=== PATIENT | female | born 1980 | race Caucasian/White ===

== ENCOUNTER 2017-02-05 08:01 | Emergency (ER) | payer SELFPAY ==
[2017-02-05 08:15] VITALS: BP 142/78
[2017-02-05] MEDS ORDERED: ASPIRIN 81 MG TABLET, CHEWABLE PO ONE (09:02)
--- NOTE | 2017-02-05 09:04 | ER Document Report ---
ED Cardiac - General Chief Complaint: Chest Pain Stated Complaint: CHEST PAIN Mode of Arrival: Ambulatory Information source: Patient Notes: Patient presents complaining of right-sided chest pain that started at 7:30 this morning and radiate to right shoulder into her right hand. Patient denies any upper arm or forearm pain. Patient does report some nausea initially but states it is now resolved. Patient denies any cough, vomiting, or diarrhea. Patient states that initially pain was a pressure and she felt short of breath. Patient states that pain is almost completely resolved at this time. Patient denies any recent bedrest, travel or immobilization. Patient denies any previous history of DVT or PE. TRAVEL OUTSIDE OF THE [place] IN LAST 30 DAYS: No - HPI Patient complains to provider of: Chest pain, Shortness of breath Quality of pain: Pressure Pain level currently: 1 Chest pain precipitating factors: At Rest Cardiac risk factors: denies: Smoker Positive cardiac history: No Associated symptoms: Anxiety, Nausea/vomiting, Shortness of breath Exacerbated by: Denies Relieved by: Nothing Similar symptoms previously: Yes - with anxiety Recently seen / treated by doctor: No - Related Data Allergies/Adverse Reactions: erythromycin ethylsuccinate [From Pediazole] Allergy (Unknown, Verified 08:15) sulfisoxazole acetyl [From Pediazole] Allergy (Unknown, Verified 02/05/17 08:15) bee pollen [Bee Pollen] Allergy (Verified 02/05/17 08:15) ceftriaxone sodium [From Rocephin] Allergy (Verified 02/05/17 08:15) THROAT SWELLING doxycycline [Doxycycline] Allergy (Verified 02/05/17 08:15) Hives, thoat closes codeine [Codeine] Adverse Reaction (Verified 02/05/17 08:15) HYPERACTIVE metoclopramide HCl [From Reglan] Adverse Reaction (Verified 02/05/17 08:15) "MAKES ME FEEL CRAZY" prochlorperazine maleate [From Compazine] Adverse Reaction (Verified 02/05/17 08 :15) "MAKES ME CRAZY" promethazine HCl [From Phenergan] Adverse Reaction (Verified 02/05/17 08:15) Nausea Past Medical History - General Information source: Patient - Social History Smoking Status: Never Smoker Chew tobacco use (# tins/day): No Frequency of alcohol use: None Drug Abuse: None Occupation: none Lives with: Family Family History: Reviewed & Not Pertinent - Past Medical History Cardiac Medical History: Reports: Hx Hypercholesterolemia - NO MEDS, TRYING TO CONTROL WITH DIET Denies: Hx Coronary Artery Disease, Hx Heart Attack Pulmonary Medical History: Reports: Hx Asthma, Hx Pneumonia - 2011 "walking" Denies: Hx Bronchitis, Hx COPD Neurological Medical History: Reports: Hx Migraine. Denies: Hx Cerebrovascular Accident, Hx Seizures Endocrine Medical History: Reports: Hx Diabetes Mellitus Type 2 - BORDERLINE-NO MEDS, Hx Hypothyroidism Renal/ Medical History: Reports: Hx Kidney Stones, Hx Ovarian Cysts. Denies: Hx Peritoneal Dialysis GI Medical History: Reports: Hx Gastroesophageal Reflux Disease, Hx Irritable Bowel Musculoskeltal Medical History: Reports Hx Arthritis - Shailesh Carpal Tunnel Syndrome, Reports Hx Musculoskeletal Trauma Skin Medical History: Reports Hx MRSA - rt big toe arm left Psychiatric Medical History: Reports: Hx Anxiety, Hx Bipolar Disorder, Hx Depression - anxiety Traumatic Medical History: Reports: Hx Fractures - left arm fingers and toes Infectious Medical History: Reports: Hx MRSA Past Surgical History: Reports: Hx Abdominal Surgery - ovarian cyst, Hx Appendectomy, Hx Thyroid Surgery, Hx Tubal Ligation - Immunizations Immunizations up to date: Yes Hx Diphtheria, Pertussis, Tetanus Vaccination: Yes - 2012 Review of Systems - Review of Systems Constitutional: No symptoms reported. denies: Fever, Recent illness EENT: No symptoms reported Cardiovascular: Chest pain. denies: Dizziness Respiratory: Short of breath. denies: Cough Gastrointestinal: Nausea. denies: Abdominal pain, Diarrhea, Vomiting Female Genitourinary: No symptoms reported Musculoskeletal: No symptoms reported. denies: Back pain Skin: No symptoms reported Hematologic/Lymphatic: No symptoms reported Neurological/Psychological: No symptoms reported Physical Exam - Vital signs Vitals: Temp Pulse Resp BP Pulse Ox 98.3 F 63 16 142/78 H 98 02/05/17 08:12 02/05/17 08:12 02/05/17 08:12 02/05/17 08:12 02/05/17 08:12 - General General appearance: Appears well, Alert, Anxious In distress: None - HEENT Head: Normocephalic, Atraumatic Eyes: Normal Conjunctiva: Normal Nasal: Normal Mouth/Lips: Normal Mucous membranes: Normal Neck: Normal, Supple. No: Lymphadenopathy - Respiratory Respiratory status: No respiratory distress Chest status: Nontender Breath sounds: Normal. No: Rales, Rhonchi, Stridor, Wheezing Chest palpation: Normal - Cardiovascular Rhythm: Regular Heart sounds: S1 appreciated, S2 appreciated Murmur: No - Abdominal Inspection: Morbidly Obese Distension: No distension Bowel sounds: Normal Tenderness: Nontender Organomegaly: No organomegaly - Back Back: Normal, Nontender. No: CVA tenderness - Extremities General upper extremity: Normal inspection, Normal ROM General lower extremity: Normal inspection, Normal ROM - Neurological Neuro grossly intact: Yes Cognition: Normal [place] Coma Scale Eye Opening: Spontaneous [place] Coma Scale Verbal: Oriented [place] Coma Scale Motor: Obeys Commands [place] Coma Scale Total: 15 - Psychological Associated symptoms: Anxious, Tearful - Skin Skin Temperature: Warm Skin Moisture: Dry Skin Color: Normal Course - Re-evaluation Re-evalutation: 02/05/17 09:38 Patient states that she needs to leave to get to her daughter's competition. Patient states she's feeling better and thinks that her symptoms were due to an anxiety attack. Patient is wanting to leave [place]. The patient has decided not to proceed with further recommended testing or treatment to determine the cause of her symptoms. The risk and alternatives to the recommendation were discussed the patient voiced understanding. The patient appears clinically to have the capacity to make this decision. The patient was instructed that they could return to the ER at any time to complete the testing or treatment. - Vital Signs Vital signs: Temp Pulse Resp BP Pulse Ox 98.3 F 63 16 142/78 H 98 02/05/17 08:12 02/05/17 08:12 02/05/17 08:12 02/05/17 08:12 02/05/17 08:12 - Laboratory Result Diagrams: 02/05/17 08:38 02/05/17 08:38 Laboratory results interpreted by me: 02/05/17 02/05/17 08:38 08:38 Glucose 131 H TSH 5.58 H Discharge - Discharge Clinical Impression: History of anxiety Chest pain Qualifiers: Chest pain type: unspecified Qualified Code(s): R07.9 - Chest pain, unspecified Disposition: AGAINST MEDICAL ADVICE
[2017-02-05 09:14] LABS: ABSOLUTE EOSINOPHILS # (AUTO) 0.3 10^3/uL (0.0-0.6); ABSOLUTE LYMPHOCYTES (AUTO) 1.9 10^3/uL (0.5-4.7); ABSOLUTE MONOCYTES (AUTO) 0.5 10^3/uL (0.1-1.4); ABSOLUTE NEUT (AUTO) 4.1 10^3/uL (1.7-8.2); BASOPHILS % (AUTO) 0.7 % (0-2); EOSINOPHILS % (AUTO) 4.3 % (0-6); HEMATOCRIT 41.4 % (36.0-47.0); HEMOGLOBIN 14.4 g/dL (12.0-15.5); HGB HCT DIFFERENCE 1.8; LYMPHOCYTES % (AUTO) 27.1 % (13-45); MEAN CORPUSCULAR HEMOGLOBIN 29.5 pg (27.0-33.4); MEAN CORPUSCULAR HGB CONC 34.8 g/dL (32.0-36.0); MEAN CORPUSCULAR VOLUME 85 fl (80-97); MONOCYTES % (AUTO) 7.5 % (3-13); RED BLOOD COUNT 4.89 10^6/uL (3.72-5.28); RED CELL DISTRIBUTION WIDTH 12.2 % (11.5-14.0); SEGMENTED NEUTROPHILS % (AUTO) 60.4 % (42-78); WHITE BLOOD COUNT 6.8 10^3/uL (4.0-10.5)
[2017-02-05 09:24] LABS: ALANINE AMINOTRANSFERASE 30 U/L (9-52); ALBUMIN 4.1 g/dL (3.5-5.0); ALKALINE PHOSPHATASE 56 U/L (38-126); ANION GAP 13 (5-19); ASPARTATE AMINO TRANSFERASE 19 U/L (14-36); BILIRUBIN,DIRECT 0.1 mg/dL (0.0-0.4); BILIRUBIN,TOTAL 0.5 mg/dL (0.2-1.3); BLOOD UREA NITROGEN 14 mg/dL (7-20); CARBON DIOXIDE 25 mmol/L (22-30); CHLORIDE 105 mmol/L (98-107); CREATINE KINASE 94 U/L (30-135); CREATININE RESULT 0.64 mg/dL (0.52-1.25); GLUCOSE 131 mg/dL (75-110); POTASSIUM 4.1 mmol/L (3.6-5.0); SODIUM 143.1 mmol/L (137-145); TOTAL PROTEIN 6.9 g/dL (6.3-8.2)
[2017-02-05 09:42] LABS: CREATINE KINASE MB 0.51 ng/mL (<4.55)
[2017-02-05 09:43] LABS: APPEARANCE,URINE SLIGHTLY-CLOUDY; BILIRUBIN,URINE NEGATIVE (NEGATIVE); GLUCOSE, URINE NEGATIVE (NEGATIVE); KETONES,URINE NEGATIVE (NEGATIVE); LEUKOCYTE ESTERASE,URINE NEGATIVE (NEGATIVE); NITRITE,URINE NEGATIVE (NEGATIVE); PROTEIN,URINE NEGATIVE (NEGATIVE); URINE SPECIFIC GRAVITY 1.016; UROBILINOGEN,URINE NEGATIVE mg/dL (<2.0)
[2017-02-05 09:43] LABS: TROPONIN I < 0.012 ng/mL
[2017-02-05 09:59] LABS: URINE BARBITURATES SCREEN NEGATIVE; URINE METHADONE SCREEN NEGATIVE; URINE OPIATES LOW NEGATIVE; URINE PHENCYCLIDINE SCREEN NEGATIVE
--- NOTE | 2017-02-05 10:20 | EKG REPORT ---
SEVERITY:- NORMAL ECG - SINUS RHYTHM : Confirmed by: Terrell Aguiar MD 05-Feb-2017 10:19:34
== END 2017-02-05 09:34 | disposition left against medical advice (07) ==
LOC: ER 08:01
DX: R07.9 Chest pain, unspecified (principal); R06.02 Shortness of breath; R11.0 Nausea; E66.01 Morbid (severe) obesity due to excess calories; R73.03 Prediabetes; E78.00 Pure hypercholesterolemia, unspecified; Z88.3 Allergy status to other anti-infective agents; Z88.6 Allergy status to analgesic agent; Z87.442 Personal history of urinary calculi; Z86.14 Personal history of Methicillin resistant Staphylococcus aureus infection; Z98.51 Tubal ligation status
CPT/HCPCS: 36415; 71020; 80053; 80307; 81001; 82550; 82553; 84443; 84484; 84703; 85025; 93005; 93010; 99285

== ENCOUNTER 2017-03-08 10:25 | Emergency (ER) | payer SELFPAY ==
[2017-03-08] MEDS ORDERED: LORAZEPAM 1 MG TABLET PO ONE (10:53)
--- NOTE | 2017-03-08 10:55 | ER Document Report ---
ED General - General Chief Complaint: Chest Pressure Stated Complaint: DIFFICULTY BREATHING/CHEST TIGHTNESS Mode of Arrival: Ambulatory Information source: Patient Notes: 37-year-old female history of anxiety panic attacks who has been off her Ativan and Zoloft for the past 6 months presents with a panic attack. Patient notes that she feels her throat was closing has pain in her hands elbows, patient notes tingling sensation, admits to right-sided chest pain radiating to her neck Patient notes this is similar to previous panic attacks TRAVEL OUTSIDE OF THE [place] IN LAST 30 DAYS: No - HPI Onset: Just prior to arrival Onset/Duration: Sudden Quality of pain: Sharp Severity: Mild Pain Level: 1 Associated symptoms: Chest pain, Other Exacerbated by: Denies Relieved by: Denies Similar symptoms previously: Yes Recently seen / treated by doctor: Yes - Related Data Allergies/Adverse Reactions: erythromycin ethylsuccinate [From Pediazole] Allergy (Unknown, Verified 10:27) sulfisoxazole acetyl [From Pediazole] Allergy (Unknown, Verified 03/08/17 10:27) bee pollen [Bee Pollen] Allergy (Verified 03/08/17 10:27) ceftriaxone sodium [From Rocephin] Allergy (Verified 03/08/17 10:27) THROAT SWELLING doxycycline [Doxycycline] Allergy (Verified 03/08/17 10:27) Hives, thoat closes codeine [Codeine] Adverse Reaction (Verified 03/08/17 10:27) HYPERACTIVE metoclopramide HCl [From Reglan] Adverse Reaction (Verified 03/08/17 10:27) "MAKES ME FEEL CRAZY" prochlorperazine maleate [From Compazine] Adverse Reaction (Verified 03/08/17 10 :27) "MAKES ME CRAZY" promethazine HCl [From Phenergan] Adverse Reaction (Verified 03/08/17 10:27) Nausea Past Medical History - Social History Smoking Status: Never Smoker Cigarette use (# per day): No Chew tobacco use (# tins/day): No Smoking Education Provided: No Family History: Reviewed & Not Pertinent Patient has suicidal ideation: No Patient has homicidal ideation: No - Past Medical History Cardiac Medical History: Reports: Hx Hypercholesterolemia - NO MEDS, TRYING TO CONTROL WITH DIET, Hx Hypertension - No meds Denies: Hx Coronary Artery Disease, Hx Heart Attack Pulmonary Medical History: Reports: Hx Asthma, Hx Pneumonia - 2011 "walking" Denies: Hx Bronchitis, Hx COPD Neurological Medical History: Reports: Hx Migraine. Denies: Hx Cerebrovascular Accident, Hx Seizures Endocrine Medical History: Reports: Hx Diabetes Mellitus Type 2 - BORDERLINE-NO MEDS, Hx Hypothyroidism Renal/ Medical History: Reports: Hx Kidney Stones, Hx Ovarian Cysts. Denies: Hx Peritoneal Dialysis GI Medical History: Reports: Hx Gastroesophageal Reflux Disease, Hx Irritable Bowel Musculoskeltal Medical History: Reports Hx Arthritis - Shailesh Carpal Tunnel Syndrome, Reports Hx Musculoskeletal Trauma Skin Medical History: Reports Hx MRSA - rt big toe arm left Psychiatric Medical History: Reports: Hx Anxiety, Hx Bipolar Disorder, Hx Depression - anxiety Traumatic Medical History: Reports: Hx Fractures - left arm fingers and toes Infectious Medical History: Reports: Hx MRSA Past Surgical History: Reports: Hx Abdominal Surgery - ovarian cyst, Hx Appendectomy, Hx Thyroid Surgery, Hx Tubal Ligation - Immunizations Immunizations up to date: Yes Hx Diphtheria, Pertussis, Tetanus Vaccination: Yes - 2012 Review of Systems - Review of Systems Notes: REVIEW OF SYSTEMS: CONSTITUTIONAL : Denies fever, chills, or sweats. Denies recent illness. EENT: Admits to sensation of throat closing CARDIOVASCULAR: Admits chest pain admits to palpitations RESPIRATORY: Denies cough, cold, or chest congestion. Denies shortness of breath, difficulty breathing, or wheezing. GASTROINTESTINAL: Denies abdominal pain or distention. Denies nausea, vomiting , or diarrhea. Denies blood in vomitus, stools, or per rectum. Denies black, tarry stools. Denies constipation. GENITOURINARY: Denies difficulty urinating, painful urination, burning, frequency, blood in urine, or discharge. FEMALE GENITOURINARY: Denies vaginal bleeding, heavy or abnormal periods, irregular periods. Denies vaginal discharge or odor. MUSCULOSKELETAL: Denies back or neck pain or stiffness. Denies joint pain or swelling. SKIN: Denies rash, lesions or sores. HEMATOLOGIC : Denies easy bruising or bleeding. LYMPHATIC: Denies swollen, enlarged glands. NEUROLOGICAL: Denies confusion or altered mental status. Denies passing out or loss of consciousness. Denies dizziness or lightheadedness. Denies headache. Denies weakness or paralysis or loss of use of either side. Denies problems with gait or speech. Denies sensory loss, numbness, or tingling. Denies seizures. PSYCHIATRIC: Admits to anxiety ALL OTHER SYSTEMS REVIEWED AND NEGATIVE. Dictation was performed using [employer] voice recognition software PHYSICAL EXAMINATION: GENERAL: Well-appearing, well-nourished and in no acute distress. HEAD: Atraumatic, normocephalic. EYES: Pupils equal round and reactive to light, extraocular movements intact, conjunctiva are normal. ENT: Nares patent, oropharynx clear without exudates. Moist mucous membranes. NECK: Normal range of motion, supple without lymphadenopathy LUNGS: Breath sounds clear to auscultation bilaterally and equal. No wheezes rales or rhonchi. HEART: Regular rate and rhythm without murmurs ABDOMEN: Soft, nontender, nondistended abdomen. No guarding, no rebound. No masses appreciated. Female : deferred Musculoskeletal: Normal range of motion, no pitting or edema. No cyanosis. NEUROLOGICAL: Cranial nerves grossly intact. Normal speech, normal gait. Normal sensory, motor exams PSYCH: Appears anxious SKIN: Warm, Dry, normal turgor, no rashes or lesions noted. Physical Exam - Vital signs Vitals: Temp Pulse Resp BP Pulse Ox 98.0 F 79 20 148/91 H 99 03/08/17 10:29 03/08/17 10:29 03/08/17 10:29 03/08/17 10:29 03/08/17 10:29 Course - Re-evaluation Re-evalutation: 03/08/17 10:55 Patient is having a panic attack, EKG noted no acute abnormality, lab work is pending patient was given Ativan 03/08/17 11:41 Patient notes symptoms have resolved with Ativan 03/08/17 13:20 Lab work notes no significant abnormality a believe this is secondary to anxiety I will discharge the patient at this time to follow-up with primary care physician After performing a Medical Screening Examination, I estimate there is LOW risk for RUPTURED ESOPHAGUS, PNEUMOTHORAX, PULMONARY EMBOLISM, ACUTE CORONARY SYNDROME, OR THORACIC AORTIC DISSECTION, thus I consider the discharge disposition reasonable. I have reevaluated this patient multiple times and no significant life threatening changes are noted. The patient and I have discussed the diagnosis and risks, and we agree with discharging home with close follow-up. We also discussed returning to the Emergency Department immediately if new or worsening symptoms occur. We have discussed the symptoms which are most concerning (e.g., bloody sputum, worsening pain or shortness of breath) that necessitate immediate return. - Vital Signs Vital signs: Temp Pulse Resp BP Pulse Ox 98.0 F 79 20 148/91 H 99 03/08/17 10:29 03/08/17 10:29 03/08/17 10:29 03/08/17 10:29 03/08/17 10:29 - Laboratory Result Diagrams: 03/08/17 12:08 03/08/17 12:08 Laboratory results interpreted by me: 03/08/17 03/08/17 12:08 12:08 RBC 5.31 H Hgb 15.7 H Glucose 119 H Calcium 10.4 H - Diagnostic Test Radiology reviewed: Image reviewed, Reports reviewed - EKG Interpretation by Me EKG shows normal: Sinus rhythm, [place], Intervals, QRS Complexes Discharge - Discharge Clinical Impression: Anxiety Chest pain Qualifiers: Chest pain type: unspecified Qualified Code(s): R07.9 - Chest pain, unspecified Condition: Stable Disposition: HOME, SELF-CARE Instructions: Anxiety ([facility]) Additional Instructions: Follow up with your physician tomorrow for further care or return to the ED IMMEDIATELY if symptoms worsen or new concerns occur. If you cannot afford to follow up with your primary care physician a list of low cost clinics have been provided at the end of your discharge papers as well. Prescriptions: Lorazepam [Ativan 1 mg Tablet] 1 mg PO Q8 #14 tab Sertraline HCl [Zoloft 50 mg Tablet] 50 mg PO DAILY #30 tablet
--- NOTE | 2017-03-08 11:19 | EKG REPORT ---
SEVERITY:- NORMAL ECG - SINUS RHYTHM : Confirmed by: Risa Azevedo 08-Mar-2017 11:18:22
[2017-03-08 12:31] LABS: ABSOLUTE EOSINOPHILS # (AUTO) 0.2 10^3/uL (0.0-0.6); ABSOLUTE LYMPHOCYTES (AUTO) 1.7 10^3/uL (0.5-4.7); ABSOLUTE MONOCYTES (AUTO) 0.5 10^3/uL (0.1-1.4); BASOPHILS % (AUTO) 0.6 % (0-2); HEMOGLOBIN 15.7 g/dL (12.0-15.5); HGB HCT DIFFERENCE 2.1; LYMPHOCYTES % (AUTO) 23.2 % (13-45); MEAN CORPUSCULAR HEMOGLOBIN 29.6 pg (27.0-33.4); MEAN CORPUSCULAR HGB CONC 34.9 g/dL (32.0-36.0); MEAN CORPUSCULAR VOLUME 85 fl (80-97); MONOCYTES % (AUTO) 6.2 % (3-13); RED BLOOD COUNT 5.31 10^6/uL (3.72-5.28); RED CELL DISTRIBUTION WIDTH 12.5 % (11.5-14.0); WHITE BLOOD COUNT 7.5 10^3/uL (4.0-10.5)
[2017-03-08 12:48] LABS: ALANINE AMINOTRANSFERASE 36 U/L (9-52); ALBUMIN 4.6 g/dL (3.5-5.0); ALKALINE PHOSPHATASE 55 U/L (38-126); ANION GAP 14 (5-19); ASPARTATE AMINO TRANSFERASE 21 U/L (14-36); BILIRUBIN,DIRECT 0.1 mg/dL (0.0-0.4); BILIRUBIN,TOTAL 0.5 mg/dL (0.2-1.3); BLOOD UREA NITROGEN 11 mg/dL (7-20); CALCIUM 10.4 mg/dL (8.4-10.2); CARBON DIOXIDE 27 mmol/L (22-30); CHLORIDE 103 mmol/L (98-107); CREATINE KINASE 73 U/L (30-135); CREATININE RESULT 0.73 mg/dL (0.52-1.25); GLUCOSE 119 mg/dL (75-110); POTASSIUM 4.6 mmol/L (3.6-5.0); SODIUM 143.9 mmol/L (137-145); TOTAL PROTEIN 7.6 g/dL (6.3-8.2)
[2017-03-08 12:59] LABS: CREATINE KINASE MB 0.67 ng/mL (<4.55)
[2017-03-08 13:00] LABS: TROPONIN I < 0.012 ng/mL
[2017-03-08 13:39] VITALS: BP 130/79
== END 2017-03-08 13:25 | disposition home or self-care (01) ==
LOC: ER 10:25
DX: F41.9 Anxiety disorder, unspecified (principal); R07.89 Other chest pain; F41.0 Panic disorder [episodic paroxysmal anxiety]; R09.89 Other specified symptoms and signs involving the circulatory and respiratory systems; R00.2 Palpitations; R20.2 Paresthesia of skin; M79.643 Pain in unspecified hand; M25.529 Pain in unspecified elbow; I10 Essential (primary) hypertension; J45.909 Unspecified asthma, uncomplicated; Z88.1 Allergy status to other antibiotic agents; Z91.030 Bee allergy status; Z86.14 Personal history of Methicillin resistant Staphylococcus aureus infection
CPT/HCPCS: 36415; 80053; 82550; 82553; 84443; 84484; 85025; 93005; 93010; 99284

== ENCOUNTER 2017-04-22 07:53 | Emergency (ER) | payer MEDICAID ==
[2017-04-22] MEDS ORDERED: ASPIRIN 81 MG TABLET, CHEWABLE PO ONE (08:15)
[2017-04-22] MEDS ORDERED: NORMAL SALINE 1000 ML 1,000 ML IV ONE (08:29)
[2017-04-22 08:57] LABS: ABSOLUTE BASOPHILS # (AUTO) 0.1 10^3/uL (0.0-0.2); ABSOLUTE EOSINOPHILS # (AUTO) 0.4 10^3/uL (0.0-0.6); ABSOLUTE LYMPHOCYTES (AUTO) 1.9 10^3/uL (0.5-4.7); ABSOLUTE MONOCYTES (AUTO) 0.6 10^3/uL (0.1-1.4); ABSOLUTE NEUT (AUTO) 7.4 10^3/uL (1.7-8.2); BASOPHILS % (AUTO) 0.8 % (0-2); EOSINOPHILS % (AUTO) 3.6 % (0-6); HEMATOCRIT 43.4 % (36.0-47.0); HEMOGLOBIN 15.1 g/dL (12.0-15.5); HGB HCT DIFFERENCE 1.9; LYMPHOCYTES % (AUTO) 18.7 % (13-45); MEAN CORPUSCULAR HEMOGLOBIN 29.3 pg (27.0-33.4); MEAN CORPUSCULAR HGB CONC 34.8 g/dL (32.0-36.0); MEAN CORPUSCULAR VOLUME 84 fl (80-97); MONOCYTES % (AUTO) 5.4 % (3-13); RED BLOOD COUNT 5.15 10^6/uL (3.72-5.28); RED CELL DISTRIBUTION WIDTH 12.4 % (11.5-14.0); SEGMENTED NEUTROPHILS % (AUTO) 71.5 % (42-78); WHITE BLOOD COUNT 10.4 10^3/uL (4.0-10.5)
--- NOTE | 2017-04-22 08:59 | RADIOLOGY REPORT (SQ) ---
EXAM DESCRIPTION: CHEST SINGLE VIEW COMPLETED DATE/TIME: 04/22/2017 8:42 am REASON FOR STUDY: chest pain COMPARISON: 02/05/2017 EXAM PARAMETERS: NUMBER OF VIEWS: One view. TECHNIQUE: Single frontal radiographic view of the chest acquired. RADIATION DOSE: NA LIMITATIONS: None. FINDINGS: LUNGS AND PLEURA: No opacities, masses or pneumothorax. No pleural effusion. MEDIASTINUM AND HILAR STRUCTURES: No masses. Contour normal. HEART AND VASCULAR STRUCTURES: Heart normal in size. Normal vasculature. BONES: No acute findings. HARDWARE: None in the chest. OTHER: No other significant finding. IMPRESSION: NO ACUTE RADIOGRAPHIC FINDING IN THE CHEST. TECHNICAL DOCUMENTATION: JOB ID: [id number]
[2017-04-22 09:22] LABS: ALANINE AMINOTRANSFERASE 29 U/L (9-52); ALBUMIN 4.1 g/dL (3.5-5.0); ALKALINE PHOSPHATASE 55 U/L (38-126); ANION GAP 12 (5-19); ASPARTATE AMINO TRANSFERASE 19 U/L (14-36); BILIRUBIN,DIRECT 0.3 mg/dL (0.0-0.4); BILIRUBIN,TOTAL 0.5 mg/dL (0.2-1.3); BLOOD UREA NITROGEN 13 mg/dL (7-20); CALCIUM 9.9 mg/dL (8.4-10.2); CARBON DIOXIDE 22 mmol/L (22-30); CHLORIDE 106 mmol/L (98-107); CREATINE KINASE 62 U/L (30-135); CREATININE RESULT 0.64 mg/dL (0.52-1.25); GLUCOSE 158 mg/dL (75-110); LIPASE 95.8 U/L (23-300); POTASSIUM 3.7 mmol/L (3.6-5.0); SODIUM 139.9 mmol/L (137-145); TOTAL PROTEIN 7.5 g/dL (6.3-8.2)
[2017-04-22 09:25] LABS: APPEARANCE,URINE CLOUDY; BILIRUBIN,URINE NEGATIVE (NEGATIVE); GLUCOSE, URINE NEGATIVE (NEGATIVE); KETONES,URINE NEGATIVE (NEGATIVE); LEUKOCYTE ESTERASE,URINE NEGATIVE (NEGATIVE); NITRITE,URINE NEGATIVE (NEGATIVE); PROTEIN,URINE NEGATIVE (NEGATIVE); UROBILINOGEN,URINE NEGATIVE mg/dL (<2.0)
[2017-04-22 09:26] LABS: RBC,URINE NONE SEEN /HPF; URINE SPECIFIC GRAVITY 1.021; WBC,URINE NONE SEEN /HPF
[2017-04-22 09:36] LABS: CREATINE KINASE MB < 0.22 ng/mL (<4.55); TROPONIN I < 0.012 ng/mL
[2017-04-22 09:37] LABS: URINE BARBITURATES SCREEN NEGATIVE; URINE METHADONE SCREEN NEGATIVE; URINE OPIATES LOW NEGATIVE; URINE PHENCYCLIDINE SCREEN NEGATIVE
--- NOTE | 2017-04-22 11:02 | EKG REPORT ---
SEVERITY:- NORMAL ECG - SINUS RHYTHM : Confirmed by: Luzma Randall MD 22-Apr-2017 11:02:09
--- NOTE | 2017-04-22 11:20 | ER Document Report ---
ED General - General Chief Complaint: Dizziness Stated Complaint: CHEST DISCOMORT Time Seen by Provider: 04/22/17 08:28 TRAVEL OUTSIDE OF THE [place] IN LAST 30 DAYS: No - HPI Patient complains to provider of: Chest tightness bumps on the back of the head Notes: Patient coming in for epigastric chest tightness bumps by the prescription on the back of her head dizziness ongoing for the last 24 hours. Patient states recently she was or suturing states that she was laying back of her head and the water afterwards developed multiple bumps on the back of her head have progressed on the bottom of her hairline. Patient also states epigastric chest tightness. Patient also states feeling weak weak and dizzy with movement denies fevers chills nausea vomiting recent travel denies any trauma - Related Data Allergies/Adverse Reactions: erythromycin ethylsuccinate [From Pediazole] Allergy (Unknown, Verified 07:57) sulfisoxazole acetyl [From Pediazole] Allergy (Unknown, Verified 04/22/17 07:57) bee pollen [Bee Pollen] Allergy (Verified 04/22/17 07:57) ceftriaxone sodium [From Rocephin] Allergy (Verified 04/22/17 07:57) THROAT SWELLING doxycycline [Doxycycline] Allergy (Verified 04/22/17 07:57) Hives, lucerot closes codeine [Codeine] Adverse Reaction (Verified 04/22/17 07:57) HYPERACTIVE metoclopramide HCl [From Reglan] Adverse Reaction (Verified 04/22/17 07:57) "MAKES ME FEEL CRAZY" prochlorperazine maleate [From Compazine] Adverse Reaction (Verified 04/22/17 07 :57) "MAKES ME CRAZY" promethazine HCl [From Phenergan] Adverse Reaction (Verified 04/22/17 07:57) Nausea Home Medications: Current Home Medications No Home Medications 04/22/17 [History] Past Medical History - Social History Smoking Status: Current Some Day Smoker Frequency of alcohol use: Rare Drug Abuse: None Family History: Reviewed & Not Pertinent Patient has suicidal ideation: No Patient has homicidal ideation: No - Past Medical History Cardiac Medical History: Reports: Hx Hypercholesterolemia - NO MEDS, TRYING TO CONTROL WITH DIET, Hx Hypertension - No meds Denies: Hx Coronary Artery Disease, Hx Heart Attack Pulmonary Medical History: Reports: Hx Asthma, Hx Pneumonia - 2011 "walking" Denies: Hx Bronchitis, Hx COPD Neurological Medical History: Reports: Hx Migraine. Denies: Hx Cerebrovascular Accident, Hx Seizures Endocrine Medical History: Reports: Hx Diabetes Mellitus Type 2 - BORDERLINE-NO MEDS, Hx Hypothyroidism Renal/ Medical History: Reports: Hx Kidney Stones, Hx Ovarian Cysts. Denies: Hx Peritoneal Dialysis GI Medical History: Reports: Hx Gastroesophageal Reflux Disease, Hx Irritable Bowel Musculoskeltal Medical History: Reports Hx Arthritis - Shailesh Carpal Tunnel Syndrome, Reports Hx Musculoskeletal Trauma Skin Medical History: Reports Hx MRSA - rt big toe arm left Psychiatric Medical History: Reports: Hx Anxiety, Hx Bipolar Disorder, Hx Depression - anxiety Traumatic Medical History: Reports: Hx Fractures - left arm fingers and toes Infectious Medical History: Reports: Hx MRSA Past Surgical History: Reports: Hx Abdominal Surgery - ovarian cyst, Hx Appendectomy, Hx Thyroid Surgery, Hx Tubal Ligation - Immunizations Immunizations up to date: Yes Hx Diphtheria, Pertussis, Tetanus Vaccination: Yes - 2012 Review of Systems - Review of Systems Constitutional: No symptoms reported EENT: No symptoms reported Cardiovascular: Chest pain Respiratory: No symptoms reported Gastrointestinal: Abdominal pain Genitourinary: No symptoms reported Female Genitourinary: No symptoms reported Musculoskeletal: No symptoms reported Skin: No symptoms reported Hematologic/Lymphatic: No symptoms reported Neurological/Psychological: No symptoms reported -: Yes All other systems reviewed and negative Physical Exam - Vital signs Vitals: Temp Pulse Resp BP Pulse Ox 98.0 F 93 16 152/87 H 99 04/22/17 07:57 04/22/17 07:57 04/22/17 07:57 04/22/17 07:57 04/22/17 07:57 Interpretation: Normal - General General appearance: Appears well, Alert - HEENT Head: Normocephalic, Atraumatic Eyes: Normal Pupils: PERRL Notes: Patient has nondescript raised bumps on the back of the head no signs of occipital or postauricular lymphadenopathy no signs of redness streaking or infection - Respiratory Respiratory status: No respiratory distress Chest status: Nontender Breath sounds: Normal Chest palpation: Normal - Cardiovascular Rhythm: Regular Heart sounds: Normal auscultation Murmur: No - Abdominal Inspection: Normal Distension: No distension Bowel sounds: Normal Tenderness: Nontender Organomegaly: No organomegaly - Back Back: Normal, Nontender - Extremities General upper extremity: Normal inspection, Nontender, Normal color, Normal ROM , Normal temperature General lower extremity: Normal inspection, Nontender, Normal color, Normal ROM , Normal temperature, Normal weight bearing. No: Ari's sign - Neurological Neuro grossly intact: Yes Cognition: Normal Orientation: AAOx4 [place] Coma Scale Eye Opening: Spontaneous [place] Coma Scale Verbal: Oriented [place] Coma Scale Motor: Obeys Commands [place] Coma Scale Total: 15 Speech: Normal Motor strength normal: LUE, RUE, LLE, RLE Sensory: Normal - Psychological Associated symptoms: Normal affect, Normal mood - Skin Skin Temperature: Warm Skin Moisture: Dry Skin Color: Normal Course - Re-evaluation Re-evalutation: 04/22/17 15:01 Bumps on back metallic to be possible contact dermatitis nothing at this time I require any antibiotics patient was encouraged to continue to apply Benadryl cream or take Benadryl for the itching. Patient's symptoms resolved after IV fluids. More likely patient was just dehydrated. Lab work shows no critical pathology. Patient will be discharged home. - Vital Signs Vital signs: Temp Pulse Resp BP Pulse Ox 98.5 F 80 20 126/77 H 97 04/22/17 11:42 04/22/17 11:42 04/22/17 11:42 04/22/17 11:42 04/22/17 11:42 - Laboratory Result Diagrams: 04/22/17 08:42 04/22/17 08:42 Laboratory results interpreted by me: 04/22/17 08:42 Glucose 158 H Discharge - Discharge Clinical Impression: Chest tightness Contact dermatitis Qualifiers: Contact dermatitis type: unspecified Contact dermatitis trigger: unspecified trigger Qualified Code(s): L25.9 - Unspecified contact dermatitis, unspecified cause Condition: Good Disposition: HOME, SELF-CARE Instructions: Chest Wall Pain ([facility]), Chest Pain of Unclear Cause ([facility]) Additional Instructions: Her evaluation today reveals no significant pathology within the chest wall cavity. No signs of infection your laboratory studies and EKG also showed no concerning etiologies with your heart. The evaluation of the bumps around her neck looks like a contact dermatitis was basically breakdown to you are exposed to something that called the months to occur possible slight allergic reaction on her skin. I would continue to take Benadryl replace Benadryl cream on for itching control. Follow-up with your primary care physician return to the ER symptoms worsen
[2017-04-22 11:39] VITALS: BP 126/77
== END 2017-04-22 11:42 | disposition home or self-care (01) ==
LOC: ER 07:53
DX: L25.9 Unspecified contact dermatitis, unspecified cause (principal); R07.9 Chest pain, unspecified; R42 Dizziness and giddiness; R53.1 Weakness; F17.200 Nicotine dependence, unspecified, uncomplicated
CPT/HCPCS: 93005; 99285; 96360; 36415; 82553; 82550; 83690; 84703; 85025; 80053; 81001; 84484; 80307; 71010; 93010; J7030

== ENCOUNTER 2017-09-06 01:34 | Emergency (ER) | payer MEDICAID ==
[2017-09-06 01:45] VITALS: BP 145/85
[2017-09-06] MEDS ORDERED: IBUPROFEN 600 MG TABLET PO ONE (01:47)
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
== END 2017-09-06 02:15 | disposition home or self-care (01) ==
LOC: ER 01:34
DX: S30.1XXA Contusion of abdominal wall, initial encounter (principal); M79.1 Myalgia; M54.5 Low back pain; M79.601 Pain in right arm; M79.602 Pain in left arm; M79.604 Pain in right leg; M79.605 Pain in left leg; R51 Headache; Y09 Assault by unspecified means
CPT/HCPCS: 99283; J3490

== ENCOUNTER 2017-10-17 20:37 | Emergency (ER) | payer MEDICAID ==
--- NOTE | 2017-10-17 23:05 | ER Document Report ---
ED Flu Like - General Chief Complaint: Flu Symptoms Stated Complaint: FEVER Time Seen by Provider: 10/17/17 22:49 Mode of Arrival: Ambulatory Information source: Patient Notes: 27-year-old female presents to ED for cough congestion sore throat and body aches. She states it has been hurting for about a week. She states it got worse last night. She states she has not had any fever. TRAVEL OUTSIDE OF THE [place] IN LAST 30 DAYS: No - HPI Onset: Last week Timing/Duration: Intermittent Quality of pain: Achy Severity: Moderate Pain Level: 3 CO exposure: No Associated symptoms: Body/muscle aches, Chills, Nonproductive cough, Rhinnorhea , Sinus pain/drainage, Sore throat. denies: Fever Similar symptoms previously: Yes Recently seen / treated by doctor: No - Related Data Allergies/Adverse Reactions: erythromycin ethylsuccinate [From Pediazole] Allergy (Unknown, Verified 20:39) sulfisoxazole acetyl [From Pediazole] Allergy (Unknown, Verified 10/17/17 20:39) bee pollen [Bee Pollen] Allergy (Verified 10/17/17 20:39) ceftriaxone sodium [From Rocephin] Allergy (Verified 10/17/17 20:39) THROAT SWELLING doxycycline [Doxycycline] Allergy (Verified 10/17/17 20:39) Hives thoat closes codeine [Codeine] Adverse Reaction (Verified 10/17/17 20:39) HYPERACTIVE metoclopramide HCl [From Reglan] Adverse Reaction (Verified 10/17/17 20:39) "MAKES ME FEEL CRAZY" prochlorperazine maleate [From Compazine] Adverse Reaction (Verified 10/17/17 20 :39) "MAKES ME CRAZY" promethazine HCl [From Phenergan] Adverse Reaction (Verified 10/17/17 20:39) Nausea Past Medical History - General Information source: Patient - Social History Smoking Status: Current Every Day Smoker Cigarette use (# per day): Yes - Half a pack a day Chew tobacco use (# tins/day): No Smoking Education Provided: Yes - Less than 2 minutes Frequency of alcohol use: None Drug Abuse: None Occupation: None getting ready to go to school Lives with: Family - Her children Family History: Other - Adopted Patient has suicidal ideation: No Patient has homicidal ideation: No - Past Medical History Cardiac Medical History: Reports: Hx Hypercholesterolemia - NO MEDS, TRYING TO CONTROL WITH DIET, Hx Hypertension - No meds Pulmonary Medical History: Reports: Hx Asthma, Hx Pneumonia - 2011 "walking" EENT Medical History: Reports: None Neurological Medical History: Reports: Hx Migraine Endocrine Medical History: Reports: Hx Hypothyroidism Renal/ Medical History: Reports: Hx Kidney Stones, Hx Ovarian Cysts, Other - Endometriosis and fibroid cyst Malignancy Medical History: Reports: None GI Medical History: Reports: Hx Gastroesophageal Reflux Disease, Hx Irritable Bowel, Hx Colonoscopy, Hx Endoscopy Musculoskeltal Medical History: Reports Hx Arthritis - Shailesh Carpal Tunnel Syndrome, Reports Hx Musculoskeletal Deformity, Reports Hx Musculoskeletal Trauma Skin Medical History: Reports Hx MRSA - rt big toe arm left, Reports Other - Folliculitis Psychiatric Medical History: Reports: Hx Anxiety, Hx Depression - anxiety Traumatic Medical History: Reports: Hx Fractures - left arm fingers and toes Infectious Medical History: Reports: Hx MRSA Past Surgical History: Reports: Hx Abdominal Surgery - ovarian cyst, Hx Appendectomy, Hx Hysterectomy, Hx Thyroid Surgery, Hx Tubal Ligation - Immunizations Immunizations up to date: Yes Hx Diphtheria, Pertussis, Tetanus Vaccination: Yes - 2012 Review of Systems - Review of Systems Constitutional: Chills, Recent illness EENT: Ear pain, Nose discharge, Sinus discharge, Throat pain Cardiovascular: No symptoms reported Respiratory: Cough Gastrointestinal: No symptoms reported Genitourinary: No symptoms reported Female Genitourinary: No symptoms reported Musculoskeletal: Muscle pain, Muscle stiffness Skin: No symptoms reported Hematologic/Lymphatic: No symptoms reported Neurological/Psychological: No symptoms reported -: Yes All other systems reviewed and negative Physical Exam - Vital signs Vitals: Temp Pulse Resp BP Pulse Ox 98.7 F 84 18 135/94 H 98 10/17/17 20:46 10/17/17 20:46 10/17/17 20:46 10/17/17 20:46 10/17/17 20:46 Interpretation: Normal - General General appearance: Appears well, Alert - HEENT Head: Normocephalic, Atraumatic Eyes: Normal Pupils: PERRL Ears: Normal External canal: Normal Tympanic membrane: Normal Sinus: Normal Nasal: Swelling, Clear rhinorrhea Mouth/Lips: Normal Mucous membranes: Normal Pharynx: Post nasal drainage. No: Erythema, Exudate, Peritonsillar abscess, Retropharyngeal abscess, Tonsillar hypertrophy, Uvular edema, Potential airway comprom. Neck: Normal - Respiratory Respiratory status: No respiratory distress Chest status: Nontender Breath sounds: Nonproductive cough. No: Productive cough, Rales, Rhonchi, Stridor, Wheezing Chest palpation: Normal - Cardiovascular Rhythm: Regular Heart sounds: Normal auscultation Murmur: No - Abdominal Inspection: Normal Distension: No distension Bowel sounds: Normal Tenderness: Nontender Organomegaly: No organomegaly - Back Back: Normal, Nontender - Extremities General upper extremity: Normal inspection, Nontender, Normal color, Normal ROM , Normal temperature General lower extremity: Normal inspection, Nontender, Normal color, Normal ROM , Normal temperature, Normal weight bearing. No: Ari's sign - Neurological Neuro grossly intact: Yes Cognition: Normal Orientation: AAOx4 [place] Coma Scale Eye Opening: Spontaneous [place] Coma Scale Verbal: Oriented [place] Coma Scale Motor: Obeys Commands [place] Coma Scale Total: 15 Speech: Normal Motor strength normal: LUE, RUE, LLE, RLE Sensory: Normal - Psychological Associated symptoms: Normal affect, Normal mood - Skin Skin Temperature: Warm Skin Moisture: Dry Skin Color: Normal Course - Re-evaluation Re-evalutation: 10/17/17 23:08 Assessment consistent with an upper respiratory infection. Her strep and flu tests were both negative. Lungs clear to auscultation. Patient recommended not to take [id number] cold medicine as she has hypertension but to try Coricidin HBP. Patient also given instructions to use Flonase nasal saline gel and salt and soda solution for gargling. Patient to follow-up with her primary doctor. - Vital Signs Vital signs: Temp Pulse Resp BP Pulse Ox 98.7 F 84 18 135/94 H 98 10/17/17 20:46 10/17/17 20:46 10/17/17 20:46 10/17/17 20:46 10/17/17 20:46 Discharge - Discharge Clinical Impression: URI (upper respiratory infection) Qualifiers: URI type: unspecified URI Qualified Code(s): J06.9 - Acute upper respiratory infection, unspecified Condition: Stable Disposition: HOME, SELF-CARE Instructions: Family Physicians / Practices Additional Instructions: UPPER RESPIRATORY ILLNESS: You have a viral infection of the respiratory passages -- a "cold." This common infection causes nasal congestion, drainage, and often sore throat and cough. It is highly contagious. The disease usually lasts about 10 to 14 days. There is no "cure" for the viral infection -- it must run its course. If there is a complication, such as bacterial infection in the nose, sinuses, middle ear, or bronchial tubes, antibiotics may be required. The antibiotics won't affect the virus. Drink plenty of fluids. A humidifier may help. An expectorant medication or decongestant may make you more comfortable. Use acetaminophen or ibuprofen for fever or aches. See the doctor if fever persists over two days, if there is any significant worsening of your symptoms, or if you simply fail to improve as expected. COUGH-SUPPRESSANT & EXPECTORANT MEDICATION: You are to use a cough medication as needed for relief of symptoms. This medicine is a combination of an expectorant (to make the mucous thinner and more easily "coughed up") and a cough suppressant (to reduce the frequency of coughing). The cough-suppressant medicine is related to narcotics. You may experience mild nausea and sleepiness. Some patients who are very sensitive to narcotics may have stomach pain from this medicine. Taking the medicine with food reduces these side effects. Do not drive or work with machinery until you know how this medicine affects you. The expectorant should have no side effects. Iodine-containing expectorants (such as organidin) should not be taken by persons with active thyroid disease unless approved by your doctor. Call the doctor if you develop shortness of breath, hives, rash, itching, lightheadedness, or severe nausea and vomiting. USE OF ACETAMINOPHEN (Tylenol): Acetaminophen may be taken for pain relief or fever control. It's much safer than aspirin, offering a wider range of "safe" dosages. It is safe during . Some brand names are Tylenol, Panadol, Datril, Anacin 3, Tempra, and Liquiprin. Acetaminophen can be repeated every four hours. The following are maximum recommended dosages: >89 pounds or adults 650 mg to 900 mg Acetaminophen can be repeated every four hours. Maximum dose not to exceed 4000 mg a day. SMOKING: If you smoke, you should stop smoking. The tar and chemicals in cigarette smoke are harmful. Smoking has been shown to cause: emphysema chronic bronchitis lung cancer mouth and throat cancer stomach and pancreas cancer premature aging defects In addition, smoking increases ear and lung infections in children of smokers. Saline spray can help to reduce your nasal drainage, and salt and soda solution can help with the postnasal drip symptoms. 1 quart of water 1 tablespoon of salt 1 teaspoon of baking soda Mixed 3 ingredients together and boil for 1 minute Placed in a covered quart jar Use 1/2 ounce of cold solution to gargle 3 times a day FOLLOW-UP CARE: If you have been referred to a physician for follow-up care, call the physician s office for an appointment as you were instructed or within the next two days. If you experience worsening or a significant change in your symptoms, notify the physician immediately or return to the Emergency Department at any time for re-evaluation. Forms: Elevated Blood Pressure, Smoking Cessation Education, Return to Work
[2017-10-17 23:09] VITALS: BP 122/88
== END 2017-10-17 23:09 | disposition home or self-care (01) ==
LOC: ER 20:37
DX: J06.9 Acute upper respiratory infection, unspecified (principal); R50.9 Fever, unspecified; M79.1 Myalgia; F17.210 Nicotine dependence, cigarettes, uncomplicated; E78.00 Pure hypercholesterolemia, unspecified; I10 Essential (primary) hypertension; E03.9 Hypothyroidism, unspecified; Z87.442 Personal history of urinary calculi; Z86.14 Personal history of Methicillin resistant Staphylococcus aureus infection; Z88.3 Allergy status to other anti-infective agents
CPT/HCPCS: 87070; 87804; 87880; 99283

== ENCOUNTER 2017-10-29 04:10 | Emergency (ER) | payer MEDICAID ==
--- NOTE | 2017-10-29 05:42 | RADIOLOGY REPORT (SQ) ---
EXAM DESCRIPTION: SOFT TISSUE NECK CLINICAL HISTORY: discomfort throat COMPARISON: None. FINDINGS: 2 views of the neck soft tissues. Normal epiglottis. No ballooning of the oropharynx. Prevertebral soft tissues are unremarkable. No steepling of the airway on frontal view. No definite osseous abnormalities. No apical pneumothorax. IMPRESSION: 1. No abnormality noted in neck soft tissues.
--- NOTE | 2017-10-29 05:52 | ER Document Report ---
ED General - General Chief Complaint: Sore Throat Stated Complaint: THROAT PAIN Time Seen by Provider: 10/29/17 05:13 TRAVEL OUTSIDE OF THE [place] IN LAST 30 DAYS: No - Related Data Allergies/Adverse Reactions: erythromycin ethylsuccinate [From Pediazole] Allergy (Unknown, Verified 20:39) sulfisoxazole acetyl [From Pediazole] Allergy (Unknown, Verified 10/17/17 20:39) bee pollen [Bee Pollen] Allergy (Verified 10/17/17 20:39) ceftriaxone sodium [From Rocephin] Allergy (Verified 10/17/17 20:39) THROAT SWELLING doxycycline [Doxycycline] Allergy (Verified 10/17/17 20:39) Hives, thoat closes Penicillins Allergy (Verified 10/29/17 04:23) codeine [Codeine] Adverse Reaction (Verified 10/17/17 20:39) HYPERACTIVE metoclopramide HCl [From Reglan] Adverse Reaction (Verified 10/17/17 20:39) "MAKES ME FEEL CRAZY" prochlorperazine maleate [From Compazine] Adverse Reaction (Verified 10/17/17 20 :39) "MAKES ME CRAZY" promethazine HCl [From Phenergan] Adverse Reaction (Verified 10/17/17 20:39) Nausea Past Medical History - Social History Smoking Status: Never Smoker Chew tobacco use (# tins/day): No Frequency of alcohol use: Rare Drug Abuse: None Family History: Other - Adopted Patient has suicidal ideation: No Patient has homicidal ideation: No - Past Medical History Cardiac Medical History: Reports: Hx Hypercholesterolemia - NO MEDS, TRYING TO CONTROL WITH DIET, Hx Hypertension - No meds Denies: Hx Coronary Artery Disease, Hx Heart Attack Pulmonary Medical History: Reports: Hx Asthma, Hx Pneumonia - 2011 "walking" Denies: Hx Bronchitis, Hx COPD Neurological Medical History: Reports: Hx Migraine. Denies: Hx Cerebrovascular Accident, Hx Seizures Endocrine Medical History: Reports: Hx Diabetes Mellitus Type 2 - BORDERLINE-NO MEDS, Hx Hypothyroidism Renal/ Medical History: Reports: Hx Kidney Stones, Hx Ovarian Cysts. Denies: Hx Peritoneal Dialysis GI Medical History: Reports: Hx Gastroesophageal Reflux Disease, Hx Irritable Bowel, Hx Colonoscopy, Hx Endoscopy Musculoskeltal Medical History: Reports Hx Arthritis - Shailesh Carpal Tunnel Syndrome, Reports Hx Musculoskeletal Deformity, Reports Hx Musculoskeletal Trauma Skin Medical History: Reports Hx MRSA - rt big toe arm left Psychiatric Medical History: Reports: Hx Anxiety, Hx Bipolar Disorder, Hx Depression - anxiety Traumatic Medical History: Reports: Hx Fractures - left arm fingers and toes Infectious Medical History: Reports: Hx MRSA Past Surgical History: Reports: Hx Abdominal Surgery - ovarian cyst, Hx Appendectomy, Hx Hysterectomy, Hx Thyroid Surgery, Hx Tubal Ligation - Immunizations Immunizations up to date: Yes Hx Diphtheria, Pertussis, Tetanus Vaccination: Yes - 2012 Physical Exam - Vital signs Vitals: Temp Pulse Resp BP Pulse Ox 98.3 F 87 20 140/85 H 98 10/29/17 04:24 10/29/17 04:24 10/29/17 04:24 10/29/17 04:24 10/29/17 04:24 - Notes Notes: PHYSICAL EXAMINATION: GENERAL: Well-appearing, well-nourished and in no acute distress. HEAD: Atraumatic, normocephalic. EYES: Pupils equal round and reactive to light, extraocular movements intact, conjunctiva are normal. ENT: Nares patent, oropharynx clear without exudates, uvula midline. Tonsillar enlargement or exudate. moist mucous membranes. Right TM within normal limits. Left TM is erythematous with loss of landmarks and fluid behind the TM. Talking without difficulty. Tolerating saliva NECK: Normal range of motion, supple without lymphadenopathy. No stridor. LUNGS: Breath sounds clear to auscultation bilaterally and equal. No wheezes rales or rhonchi. HEART: Regular rate and rhythm without murmurs ABDOMEN: Soft, nontender, nondistended abdomen. No guarding, no rebound. No masses appreciated. Female : deferred Musculoskeletal: Normal range of motion, no pitting or edema. No cyanosis. NEUROLOGICAL: Cranial nerves grossly intact. Normal speech, normal gait. Normal sensory, motor exams PSYCH: Normal mood, normal affect. SKIN: Warm, Dry, normal turgor, no rashes or lesions noted. Course - Re-evaluation Re-evalutation: 10/29/17 05:50 Patient states that she can take azithromycin she has in the past without incident - Vital Signs Vital signs: Temp Pulse Resp BP Pulse Ox 98.3 F 87 20 140/85 H 98 10/29/17 04:24 10/29/17 04:24 10/29/17 04:24 10/29/17 04:24 10/29/17 04:24 - Diagnostic Test Radiology reviewed: Image reviewed, Reports reviewed Radiology results interpreted by me: 10/29/17 05:50 No acute findings on x-rays of the soft tissues of the neck Discharge - Discharge Clinical Impression: Left otitis media Condition: Stable Disposition: HOME, SELF-CARE Instructions: Otitis Media ([facility]) Prescriptions: Azithromycin [Zithromax 250 mg Tablet] 250 mg PO ASDIR PRN #6 tablet PRN Reason: Referrals: [facility] [Provider Group] - Follow up in 3-5 days
[2017-10-29 06:21] VITALS: BP 124/74
== END 2017-10-29 06:21 | disposition home or self-care (01) ==
LOC: ER 04:10
DX: H66.92 Otitis media, unspecified, left ear (principal); J02.9 Acute pharyngitis, unspecified; R05 Cough; E11.9 Type 2 diabetes mellitus without complications; E03.9 Hypothyroidism, unspecified; E78.00 Pure hypercholesterolemia, unspecified; I10 Essential (primary) hypertension; Z88.3 Allergy status to other anti-infective agents; Z88.0 Allergy status to penicillin; Z86.14 Personal history of Methicillin resistant Staphylococcus aureus infection; Z90.710 Acquired absence of both cervix and uterus; Z87.442 Personal history of urinary calculi
CPT/HCPCS: 70360; 99283

== ENCOUNTER 2017-11-29 23:55 | Emergency (ER) | payer MEDICAID ==
[2017-11-30] MEDS ORDERED: METHOCARBAMOL INJ/PF 1000 MG/10 ML SDV IV ONE (01:18)
[2017-11-30] MEDS ORDERED: NORMAL SALINE 1000 ML 1,000 ML IV ONE (01:18)
[2017-11-30] MEDS ORDERED: ONDANSETRON 4 MG TAB.RAPDIS PO ONE (01:18)
[2017-11-30] MEDS ORDERED: DIPHENHYDRAMINE HCL 50 MG/ML VIAL IV ONE (01:19)
--- NOTE | 2017-11-30 01:21 | ER Document Report ---
ED General - General Chief Complaint: Headache <24 hrs old Stated Complaint: DIZZINESS,CHILLS,FALL Time Seen by Provider: 11/30/17 01:08 Notes: Patient is a 37-year-old female that comes emergency department for chief complaint of headache that started at 1800 tonight, she states she feels like it started suddenly, she states it feels like it is a band around her head, it made her nauseated and she dry heaves but she did not vomit. She states she feels like her vision is blurry as well. She states that later in the evening about 45 minutes prior to arrival she stood up and then passed out, states that she landed on her right shoulder and her right hand which both hurt, she states that she was only down for a couple of seconds. She denies hitting her head. 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 Denies any other past medical history. TRAVEL OUTSIDE OF THE [place] IN LAST 30 DAYS: No - Related Data Allergies/Adverse Reactions: erythromycin ethylsuccinate [From Pediazole] Allergy (Unknown, Verified 20:39) sulfisoxazole acetyl [From Pediazole] Allergy (Unknown, Verified 10/17/17 20:39) bee pollen [Bee Pollen] Allergy (Verified 10/17/17 20:39) ceftriaxone sodium [From Rocephin] Allergy (Verified 10/17/17 20:39) THROAT SWELLING doxycycline [Doxycycline] Allergy (Verified 10/17/17 20:39) Hives, thoat closes Penicillins Allergy (Verified 10/29/17 04:23) codeine [Codeine] Adverse Reaction (Verified 10/17/17 20:39) HYPERACTIVE metoclopramide HCl [From Reglan] Adverse Reaction (Verified 10/17/17 20:39) "MAKES ME FEEL CRAZY" prochlorperazine maleate [From Compazine] Adverse Reaction (Verified 10/17/17 20 :39) "MAKES ME CRAZY" promethazine HCl [From Phenergan] Adverse Reaction (Verified 10/17/17 20:39) Nausea Past Medical History - General Information source: Patient - Social History Smoking Status: Former Smoker Frequency of alcohol use: Occasional Drug Abuse: None Lives with: Family Family History: Other - Adopted - Past Medical History Cardiac Medical History: Reports: Hx Hypercholesterolemia - NO MEDS, TRYING TO CONTROL WITH DIET, Hx Hypertension - No meds Denies: Hx Coronary Artery Disease, Hx Heart Attack Pulmonary Medical History: Reports: Hx Asthma, Hx Pneumonia - 2011 "walking" Denies: Hx Bronchitis, Hx COPD Neurological Medical History: Reports: Hx Migraine. Denies: Hx Cerebrovascular Accident, Hx Seizures Endocrine Medical History: Reports: Hx Diabetes Mellitus Type 2 - BORDERLINE-NO MEDS, Hx Hypothyroidism Renal/ Medical History: Reports: Hx Kidney Stones, Hx Ovarian Cysts. Denies: Hx Peritoneal Dialysis GI Medical History: Reports: Hx Gastroesophageal Reflux Disease, Hx Irritable Bowel, Hx Colonoscopy, Hx Endoscopy Musculoskeltal Medical History: Reports Hx Arthritis - Shailesh Carpal Tunnel Syndrome, Reports Hx Musculoskeletal Deformity, Reports Hx Musculoskeletal Trauma Skin Medical History: Reports Hx MRSA - rt big toe arm left Psychiatric Medical History: Reports: Hx Anxiety, Hx Bipolar Disorder, Hx Depression - anxiety Traumatic Medical History: Reports: Hx Fractures - left arm fingers and toes Infectious Medical History: Reports: Hx MRSA Past Surgical History: Reports: Hx Abdominal Surgery - ovarian cyst, Hx Appendectomy, Hx Hysterectomy, Hx Thyroid Surgery, Hx Tubal Ligation - Immunizations Immunizations up to date: Yes Hx Diphtheria, Pertussis, Tetanus Vaccination: Yes - 2012 Review of Systems - Review of Systems Constitutional: See HPI EENT: No symptoms reported Cardiovascular: See HPI Respiratory: No symptoms reported Gastrointestinal: No symptoms reported Genitourinary: No symptoms reported Female Genitourinary: No symptoms reported Musculoskeletal: See HPI Skin: No symptoms reported Hematologic/Lymphatic: No symptoms reported Neurological/Psychological: See HPI Physical Exam - Vital signs Vitals: Temp Pulse Resp BP Pulse Ox 98.3 F 84 20 148/81 H 96 11/30/17 00:05 11/30/17 00:05 11/30/17 00:05 11/30/17 00:05 11/30/17 00:05 Interpretation: Normal - General General appearance: Alert In distress: None - HEENT Head: Normocephalic, Atraumatic Eyes: Other - Bags under her eyes bilaterally, slightly injected conjunctiva, otherwise unremarkable Extraocular movements intact: Yes Eyelashes: Normal Pupils: PERRL Mouth/Lips: Normal Mucous membranes: Normal Pharynx: Normal Neck: Normal - Respiratory Respiratory status: No respiratory distress Chest status: Nontender Breath sounds: Normal. No: Decreased air movement, Wheezing Chest palpation: Normal - Cardiovascular Rhythm: Regular Heart sounds: Normal auscultation Murmur: No - Abdominal Inspection: Normal Distension: No distension Bowel sounds: Normal Tenderness: Nontender. No: Tender, Guarding Organomegaly: No organomegaly - Back Back: Normal, Nontender. No: Tender, Vertebra tenderness - Extremities General upper extremity: Normal inspection, Nontender, Normal color, Normal ROM , Normal temperature General lower extremity: Normal inspection, Nontender, Normal color, Normal ROM , Normal temperature, Normal weight bearing. No: Ari's sign - Neurological Neuro grossly intact: Yes Cognition: Normal Orientation: AAOx4 [place] Coma Scale Eye Opening: Spontaneous [place] Coma Scale Verbal: Oriented Imani Coma Scale Motor: Obeys Commands [place] Coma Scale Total: 15 Speech: Normal Motor strength normal: LUE, RUE, LLE, RLE Sensory: Normal - Psychological Associated symptoms: Normal affect, Normal mood - Skin Skin Temperature: Warm Skin Moisture: Dry Skin Color: Normal Course - Re-evaluation Re-evalutation: CAT scan of the head unremarkable, x-ray of the shoulder and hand are unremarkable. I suspect patient's headache is a tension headache related to stress of not being able to sleep except for 2 hours over 72 hour. Because of her work schedule. Most likely tension headache triggering migraine-like symptoms. CBC unremarkable, chemistry unremarkable, EKG sinus rhythm with no abnormalities with the MA interval. Suspect syncope was also related to lack of sleep. 11/30/17 03:55 I reevaluated patient, she still has a headache, however patient is actually not received any of her medications. Nurse has been delayed by other patients. Apologized to the patient, patient is receiving her medications now. After medications patient slept, she was very groggy and difficult to arouse for a few hours, afterwards she awoke, reported she feels much better. Again suspect this was tension headache triggering a migraine with lack of sleep causing her symptoms. I discussed this with patient. Discussed normal workup, conditions, medication for home, follow-up, return precautions. Patient states understanding and agreement. - Vital Signs Vital signs: Temp Pulse Resp BP Pulse Ox 98.4 F 72 18 117/53 L 96 11/30/17 04:21 11/30/17 05:53 11/30/17 04:21 11/30/17 05:53 11/30/17 05:53 - Laboratory Result Diagrams: 11/30/17 02:30 11/30/17 02:30 Laboratory results interpreted by me: 11/30/17 11/30/17 02:30 02:30 RBC 5.34 H Hgb 15.7 H Glucose 113 H Calcium 10.8 H Discharge - Discharge Clinical Impression: Headache Qualifiers: Headache type: unspecified Headache chronicity pattern: acute headache Intractability: not intractable Qualified Code(s): R51 - Headache Episode of syncope Qualifiers: Syncope type: unspecified Qualified Code(s): R55 - Syncope and collapse Condition: Stable Disposition: HOME, SELF-CARE Additional Instructions: The CAT scan of your head, x-rays of your shoulder and hand, and additional workup did not show any concerning abnormalities. Your symptoms, workup, and response to treatment are suggestive of a tension headache triggering a migraine. Take the Robaxin if needed as a muscle relaxer , apply heat to your left neck/shoulder, rest, take the Fioricet if needed for tension headache. Improve the amount of sleep you get. Follow-up with primary care. Return for any concerning symptoms including returned or severe headache, fever, vomiting, passing out again, or any other concerning symptoms. See additional details below. Syncopal Episode Syncope (fainting or near-fainting) can occur from many different health problems. Or it can be a simple fainting spell requiring no treatment. It is safe for you to go home, but further evaluation will likely be necessary. Your work-up may include tests for internal bleeding, heart disease, medication problems, or near-strokes. Tests are not always required, however, depending on the nature of your problem. The warning signs of an impending faint include: dizziness, lightheadedness , nausea, hot flashes, tingling, and weakness. If this happens, lay down and put your feet up, then wait until all of these symptoms have passed before standing up again. If these episodes become recurrent, or if you develop chest pain, heart palpitations, mental confusion, blurred vision, or headache, then you should call the physician, or go to the emergency room. Prescriptions: Butalb/Acetaminophen/Caffeine [Fioricet (50-325-40 mg) Tablet] 1 tab PO Q4HP PRN #20 tab PRN Reason: Methocarbamol [Robaxin 500 mg Tablet] 500 mg PO QID PRN #20 tablet PRN Reason: Referrals: EDWARDO PADILLA,AHMET Hidalgo MD [Primary Care Provider] - Follow up as needed
--- NOTE | 2017-11-30 02:30 | RADIOLOGY REPORT (SQ) ---
EXAM DESCRIPTION: CT HEAD WITHOUT CLINICAL HISTORY: 37 years Female, headache, passed out, blurry vision COMPARISON: 8--14. TECHNIQUE: 70 mL Isovue-370 IV contrast. Coronal and sagittal reformat. This exam was performed according to our departmental dose-optimization program, which includes automated exposure control, adjustment of the mA and/or kV according to patient size and/or use of iterative reconstruction technique. FINDINGS: No hemorrhage or infarct. No mass, mass effect, or midline shift. Brain and extra-axial structures appear otherwise intact. No enhancement abnormality. IMPRESSION: Normal contrast CT of the head.
[2017-11-30 02:39] LABS: ABSOLUTE BASOPHILS # (AUTO) 0.1 10^3/uL (0.0-0.2); ABSOLUTE EOSINOPHILS # (AUTO) 0.3 10^3/uL (0.0-0.6); ABSOLUTE MONOCYTES (AUTO) 0.5 10^3/uL (0.1-1.4); ABSOLUTE NEUT (AUTO) 5.4 10^3/uL (1.7-8.2); BASOPHILS % (AUTO) 1.1 % (0-2); HEMATOCRIT 44.8 % (36.0-47.0); HEMOGLOBIN 15.7 g/dL (12.0-15.5); LYMPHOCYTES % (AUTO) 32.6 % (13-45); MEAN CORPUSCULAR HEMOGLOBIN 29.4 pg (27.0-33.4); MEAN CORPUSCULAR HGB CONC 35.1 g/dL (32.0-36.0); MEAN CORPUSCULAR VOLUME 84 fl (80-97); MONOCYTES % (AUTO) 5.3 % (3-13); PLATELET COUNT 228 10^3/uL (150-450); RED BLOOD COUNT 5.34 10^6/uL (3.72-5.28); RED CELL DISTRIBUTION WIDTH 12.9 % (11.5-14.0); TOTAL CELLS COUNTED % (AUTO) 100 %; WHITE BLOOD COUNT 9.3 10^3/uL (4.0-10.5)
--- NOTE | 2017-11-30 02:41 | RADIOLOGY REPORT (SQ) ---
EXAM DESCRIPTION: HAND RIGHT 3 VIEWS CLINICAL HISTORY: 37 years, Female, fall, pain COMPARISON: None. NUMBER OF VIEWS: 3 Findings: Bones, joints, and soft tissues of the right hand appear intact. IMPRESSION: No acute findings. 2011 [employer]- All Rights Reserved
--- NOTE | 2017-11-30 02:44 | RADIOLOGY REPORT (SQ) ---
EXAM DESCRIPTION: SHOULDER RIGHT 2 OR MORE VIEWS CLINICAL HISTORY: 37 years, Female, fall, pain COMPARISON: None. NUMBER OF VIEWS: 3 TECHNIQUE: LIMITATIONS: None. Findings: Minimal 2 mm erosion of the distal right clavicle may indicate chronic repetitive injury or arthritic process. Bones, joints, and soft tissues of the right shoulder appear otherwise intact. IMPRESSION: No acute findings. Tiny right distal clavicular erosion which may indicate chronic repetitive injury or arthritic process. . 2010 [employer]- All Rights Reserved
[2017-11-30 02:49] LABS: APPEARANCE,URINE CLOUDY; BILIRUBIN,URINE NEGATIVE (NEGATIVE); COLOR,URINE YELLOW; GLUCOSE, URINE NEGATIVE (NEGATIVE); KETONES,URINE NEGATIVE (NEGATIVE); LEUKOCYTE ESTERASE,URINE NEGATIVE (NEGATIVE); NITRITE,URINE NEGATIVE (NEGATIVE); PROTEIN,URINE NEGATIVE (NEGATIVE); URINE SPECIFIC GRAVITY 1.016; UROBILINOGEN,URINE NEGATIVE mg/dL (<2.0)
[2017-11-30 03:04] LABS: ANION GAP 9 (5-19); BLOOD UREA NITROGEN 9 mg/dL (7-20); CALCIUM 10.8 mg/dL (8.4-10.2); CARBON DIOXIDE 26 mmol/L (22-30); CHLORIDE 105 mmol/L (98-107); GLUCOSE 113 mg/dL (75-110); SODIUM 140.4 mmol/L (137-145)
[2017-11-30] MEDS ORDERED: KETOROLAC TROMETHAMINE INJ/PF 30 MG/1 ML SDV IV ONE (03:56)
[2017-11-30 05:57] VITALS: BP 117/53
--- NOTE | 2017-11-30 23:10 | EKG REPORT ---
SEVERITY:- ABNORMAL ECG - SINUS RHYTHM : Confirmed by: Risa Azevedo 30-Nov-2017 23:09:44
== END 2017-11-30 05:57 | disposition home or self-care (01) ==
LOC: ER 23:55
DX: R51 Headache (principal); R11.0 Nausea; H53.8 Other visual disturbances; R55 Syncope and collapse; M25.511 Pain in right shoulder; M79.641 Pain in right hand; W19.XXXA Unspecified fall, initial encounter; Y92.009 Unspecified place in unspecified non-institutional (private) residence as the place of occurrence of the external cause; E11.9 Type 2 diabetes mellitus without complications; J45.909 Unspecified asthma, uncomplicated; F41.9 Anxiety disorder, unspecified; F43.10 Post-traumatic stress disorder, unspecified; I10 Essential (primary) hypertension; Z88.1 Allergy status to other antibiotic agents; Z91.030 Bee allergy status; Z88.0 Allergy status to penicillin; Z87.891 Personal history of nicotine dependence
CPT/HCPCS: 93005; 99285; 96375; 96365; 36415; 85025; 81025; 80048; 81001; 73130; 73030; 70450; 93010; J1200; S0119; J2800; J1885; J7030

== ENCOUNTER 2017-12-10 01:46 | Emergency (ER) | payer MEDICAID ==
[2017-12-10] MEDS ORDERED: PREDNISONE 20 MG TABLET PO ONE (05:02)
[2017-12-10] MEDS ORDERED: ALBUTEROL SULFATE 0.083% NEB 2.5 MG/3 ML AMPUL NEB ONE (05:02)
[2017-12-10] MEDS ORDERED: AZITHROMYCIN 250 MG TABLET PO ONE (05:42)
--- NOTE | 2017-12-10 05:47 | ER Document Report ---
ED General - General Chief Complaint: Cough Stated Complaint: COUGH Time Seen by Provider: 12/10/17 04:22 TRAVEL OUTSIDE OF THE [place] IN LAST 30 DAYS: No - HPI Patient complains to provider of: Cough shortness of breath Notes: Patient coming in with cough shortness of breath ongoing for greater than 2 3 weeks. Patient states worsening over the last few days. Patient states she is a smoker however is been unable to smoke for the last few days. Patient denies any recent travel denies chills states fever last few days. Patient states did recently receive a flu vaccination. Patient resting comfortably upon my evaluation with a nonproductive cough. - Related Data Allergies/Adverse Reactions: erythromycin ethylsuccinate [From Pediazole] Allergy (Unknown, Verified 20:39) sulfisoxazole acetyl [From Pediazole] Allergy (Unknown, Verified 10/17/17 20:39) bee pollen [Bee Pollen] Allergy (Verified 10/17/17 20:39) ceftriaxone sodium [From Rocephin] Allergy (Verified 10/17/17 20:39) THROAT SWELLING doxycycline [Doxycycline] Allergy (Verified 10/17/17 20:39) Hives, thoat closes Penicillins Allergy (Verified 10/29/17 04:23) codeine [Codeine] Adverse Reaction (Verified 10/17/17 20:39) HYPERACTIVE metoclopramide HCl [From Reglan] Adverse Reaction (Verified 10/17/17 20:39) "MAKES ME FEEL CRAZY" prochlorperazine maleate [From Compazine] Adverse Reaction (Verified 10/17/17 20 :39) "MAKES ME CRAZY" promethazine HCl [From Phenergan] Adverse Reaction (Verified 10/17/17 20:39) Nausea Past Medical History - Social History Smoking Status: Unknown if Ever Smoked Family History: Other - Adopted Patient has suicidal ideation: No Patient has homicidal ideation: No - Past Medical History Cardiac Medical History: Reports: Hx Hypercholesterolemia - NO MEDS, TRYING TO CONTROL WITH DIET, Hx Hypertension - No meds Denies: Hx Coronary Artery Disease, Hx Heart Attack Pulmonary Medical History: Reports: Hx Asthma, Hx Pneumonia - 2011 "walking" Denies: Hx Bronchitis, Hx COPD Neurological Medical History: Reports: Hx Migraine. Denies: Hx Cerebrovascular Accident, Hx Seizures Endocrine Medical History: Reports: Hx Diabetes Mellitus Type 2 - BORDERLINE-NO MEDS, Hx Hypothyroidism Renal/ Medical History: Reports: Hx Kidney Stones, Hx Ovarian Cysts. Denies: Hx Peritoneal Dialysis GI Medical History: Reports: Hx Gastroesophageal Reflux Disease, Hx Irritable Bowel, Hx Colonoscopy, Hx Endoscopy Musculoskeltal Medical History: Reports Hx Arthritis - Shailesh Carpal Tunnel Syndrome, Reports Hx Musculoskeletal Deformity, Reports Hx Musculoskeletal Trauma Skin Medical History: Reports Hx MRSA - rt big toe arm left Psychiatric Medical History: Reports: Hx Anxiety, Hx Bipolar Disorder, Hx Depression - anxiety Traumatic Medical History: Reports: Hx Fractures - left arm fingers and toes Infectious Medical History: Reports: Hx MRSA Past Surgical History: Reports: Hx Abdominal Surgery - ovarian cyst, Hx Appendectomy, Hx Hysterectomy, Hx Thyroid Surgery, Hx Tubal Ligation - Immunizations Immunizations up to date: Yes Hx Diphtheria, Pertussis, Tetanus Vaccination: Yes - 2012 Review of Systems - Review of Systems Constitutional: Fever EENT: No symptoms reported Cardiovascular: No symptoms reported Respiratory: Short of breath, Wheezing Gastrointestinal: No symptoms reported Genitourinary: No symptoms reported Female Genitourinary: No symptoms reported Musculoskeletal: No symptoms reported Skin: No symptoms reported Hematologic/Lymphatic: No symptoms reported Neurological/Psychological: No symptoms reported -: Yes All other systems reviewed and negative Physical Exam - Vital signs Interpretation: Normal - General General appearance: Appears well, Alert - HEENT Head: Normocephalic, Atraumatic Eyes: Normal Pupils: PERRL - Respiratory Respiratory status: No respiratory distress Chest status: Nontender Breath sounds: Rhonchi, Wheezing Chest palpation: Normal - Cardiovascular Rhythm: Regular Heart sounds: Normal auscultation Murmur: No - Abdominal Inspection: Normal Distension: No distension Bowel sounds: Normal Tenderness: Nontender Organomegaly: No organomegaly - Back Back: Normal, Nontender - Extremities General upper extremity: Normal inspection, Nontender, Normal color, Normal ROM , Normal temperature General lower extremity: Normal inspection, Nontender, Normal color, Normal ROM , Normal temperature, Normal weight bearing. No: Ari's sign - Neurological Neuro grossly intact: Yes Cognition: Normal Orientation: AAOx4 [place] Coma Scale Eye Opening: Spontaneous Imani Coma Scale Verbal: Oriented Imani Coma Scale Motor: Obeys Commands [place] Coma Scale Total: 15 Speech: Normal Motor strength normal: LUE, RUE, LLE, RLE Sensory: Normal - Psychological Associated symptoms: Normal affect, Normal mood - Skin Skin Temperature: Warm Skin Moisture: Dry Skin Color: Normal Course - Re-evaluation Re-evalutation: 12/10/17 05:44 Patient coming in for evaluation shortness of breath. Chest x-ray read by myself shows no overt pneumonia however with the patient's symptoms a history of coughing will start patient on azithromycin steroids and bronchodilators. Patient states understanding will be discharged home. Educated patient about stop smoking. Discharge - Discharge Clinical Impression: Bronchitis Condition: Good Disposition: HOME, SELF-CARE Instructions: Bronchitis ([facility]), Stop Smoking ([facility]) Additional Instructions: Please take medications as prescribed return to ER symptoms worsen. Please use your inhaler or nebulizer 2 puffs or 1 treatment every 2-4 hours. Please stop smoking Prescriptions: Albuterol Sulfate [Albuterol Sulfate 2.5mg/3 mL] 1 vial IH Q4 PRN #30 vial PRN Reason: Azithromycin 250 mg PO DAILY #4 tablet Nebulizer [Nebulizer Machine] 1 each MC ASDIR PRN #1 kit PRN Reason: Prednisone [Deltasone] 60 mg PO DAILY #24 tablet Forms: Return to Work
[2017-12-10 06:34] VITALS: BP 137/78
--- NOTE | 2017-12-10 08:08 | RADIOLOGY REPORT (SQ) ---
EXAM DESCRIPTION: CHEST PA/LAT COMPLETED DATE/TIME: 12/10/2017 4:43 am REASON FOR STUDY: cough COMPARISON: Chest x-ray 09/14/2017. EXAM PARAMETERS: NUMBER OF VIEWS: two views TECHNIQUE: Digital Frontal and Lateral radiographic views of the chest acquired. RADIATION DOSE: NA LIMITATIONS: none FINDINGS: LUNGS AND PLEURA: No consolidation, pneumothorax or pleural effusion. MEDIASTINUM AND HILAR STRUCTURES: No masses or contour abnormalities. HEART AND VASCULAR STRUCTURES: Heart normal size. No evidence for failure. BONES: No acute findings. HARDWARE: None in the chest. IMPRESSION: No acute radiographic finding in the chest. TECHNICAL DOCUMENTATION: JOB ID: [id number] 2010 [employer]- All Rights Reserved
== END 2017-12-10 05:55 | disposition home or self-care (01) ==
LOC: ER 01:46
DX: J40 Bronchitis, not specified as acute or chronic (principal); R05 Cough; R06.02 Shortness of breath; R50.9 Fever, unspecified; F17.200 Nicotine dependence, unspecified, uncomplicated; I10 Essential (primary) hypertension; Z88.1 Allergy status to other antibiotic agents; Z91.030 Bee allergy status; Z88.0 Allergy status to penicillin; Z87.01 Personal history of pneumonia (recurrent)
CPT/HCPCS: 94640; 99283; 71046; Q0144; J7512

== ENCOUNTER 2018-01-18 21:50 | Emergency (ER) | payer MEDICAID ==
[2018-01-18] MEDS ORDERED: KETOROLAC TROMETHAMINE 60 MG/2 ML SDV IM ONE (22:16)
--- NOTE | 2018-01-18 22:22 | ER Document Report ---
ED GI/ - General Chief Complaint: Flank Pain Stated Complaint: ABDOMINAL PAIN Time Seen by Provider: 01/18/18 22:15 Notes: The patient is a 37-year-old female, past medical history prior kidney stones, presents with left flank pain and dysuria over the past few hours. She initially was having difficulty urinating and now has increased frequency of her urination. Patient denies hematuria, fevers, nausea, vomiting, diarrhea, constipation, rash, saddle anesthesia, midline back pain, chest pain or shortness of breath. TRAVEL OUTSIDE OF THE [place] IN LAST 30 DAYS: No - Related Data Allergies/Adverse Reactions: erythromycin ethylsuccinate [From Pediazole] Allergy (Unknown, Verified 20:39) sulfisoxazole acetyl [From Pediazole] Allergy (Unknown, Verified 10/17/17 20:39) bee pollen [Bee Pollen] Allergy (Verified 10/17/17 20:39) ceftriaxone sodium [From Rocephin] Allergy (Verified 10/17/17 20:39) THROAT SWELLING doxycycline [Doxycycline] Allergy (Verified 10/17/17 20:39) Hives, thoat closes Penicillins Allergy (Verified 10/29/17 04:23) codeine [Codeine] Adverse Reaction (Verified 10/17/17 20:39) HYPERACTIVE metoclopramide HCl [From Reglan] Adverse Reaction (Verified 10/17/17 20:39) "MAKES ME FEEL CRAZY" prochlorperazine maleate [From Compazine] Adverse Reaction (Verified 10/17/17 20 :39) "MAKES ME CRAZY" promethazine HCl [From Phenergan] Adverse Reaction (Verified 10/17/17 20:39) Nausea Past Medical History - General Information source: Patient - Social History Smoking Status: Unknown if Ever Smoked Family History: Other - Adopted Patient has suicidal ideation: No Patient has homicidal ideation: No - Past Medical History Cardiac Medical History: Reports: Hx Hypercholesterolemia - NO MEDS, TRYING TO CONTROL WITH DIET, Hx Hypertension - No meds Denies: Hx Coronary Artery Disease, Hx Heart Attack Pulmonary Medical History: Reports: Hx Asthma, Hx Pneumonia - 2011 "walking" Denies: Hx Bronchitis, Hx COPD Neurological Medical History: Reports: Hx Migraine. Denies: Hx Cerebrovascular Accident, Hx Seizures Endocrine Medical History: Reports: Hx Diabetes Mellitus Type 2 - BORDERLINE-NO MEDS, Hx Hypothyroidism Renal/ Medical History: Reports: Hx Kidney Stones, Hx Ovarian Cysts. Denies: Hx Peritoneal Dialysis GI Medical History: Reports: Hx Gastroesophageal Reflux Disease, Hx Irritable Bowel, Hx Colonoscopy, Hx Endoscopy Musculoskeltal Medical History: Reports Hx Arthritis - Shailesh Carpal Tunnel Syndrome, Reports Hx Musculoskeletal Deformity, Reports Hx Musculoskeletal Trauma Skin Medical History: Reports Hx MRSA - rt big toe arm left Psychiatric Medical History: Reports: Hx Anxiety, Hx Bipolar Disorder, Hx Depression - anxiety Traumatic Medical History: Reports: Hx Fractures - left arm fingers and toes Infectious Medical History: Reports: Hx MRSA Past Surgical History: Reports: Hx Abdominal Surgery - ovarian cyst, Hx Appendectomy, Hx Hysterectomy, Hx Thyroid Surgery, Hx Tubal Ligation - Immunizations Immunizations up to date: Yes Hx Diphtheria, Pertussis, Tetanus Vaccination: Yes - 2012 Review of Systems - Review of Systems Notes: REVIEW OF SYSTEMS: CONSTITUTIONAL: -fevers, -chills EENT: -eye pain, -difficulty swallowing, -nasal congestion CARDIOVASCULAR: -chest pain, -syncope. RESPIRATORY: -cough, -SOB GASTROINTESTINAL: +left flank pain, -abdominal pain, -nausea, -vomiting, - diarrhea GENITOURINARY: +dysuria, -hematuria MUSCULOSKELETAL: -back pain, -neck pain SKIN: -rash or skin lesions. HEMATOLOGIC: -easy bruising or bleeding. LYMPHATIC: -swollen, enlarged glands. NEUROLOGICAL: -altered mental status or loss of consciousness, -headache, - neurologic symptoms PSYCHIATRIC: -anxiety, -depression. ALL OTHER SYSTEMS REVIEWED AND NEGATIVE. Physical Exam - Vital signs Vitals: Temp Pulse Resp BP Pulse Ox 97.7 F 63 18 122/72 100 01/18/18 22:06 01/18/18 22:06 01/18/18 22:06 01/18/18 22:06 01/18/18 22:06 - Notes Notes: PHYSICAL EXAMINATION: GENERAL: Well-appearing, well-nourished and in no acute distress. HEAD: Atraumatic, normocephalic. EYES: Pupils equal round and reactive to light, extraocular movements intact, sclera anicteric, conjunctiva are normal. ENT: nares patent, oropharynx clear without exudates. Moist mucous membranes. NECK: Normal range of motion, supple without lymphadenopathy LUNGS: Breath sounds clear to auscultation bilaterally and equal. No wheezes rales or rhonchi. HEART: Regular rate and rhythm without murmurs ABDOMEN: Soft, mild suprapubic tenderness, normoactive bowel sounds. No guarding, no rebound. No masses appreciated. BACK: No CVA tenderness or midline tenderness. EXTREMITIES: Normal range of motion, no pitting or edema. No cyanosis. NEUROLOGICAL: Cranial nerves grossly intact. Normal speech, normal gait. Normal sensory and motor exams. PSYCH: Normal mood, normal affect. SKIN: Warm, Dry, normal turgor, no rashes or lesions noted. Course - Re-evaluation Re-evalutation: Patient with left flank pain radiating to her groin and some dysuria and hematuria. Her urine shows large amount of blood, but no signs of a UTI or pyelonephritis. CT abdomen and pelvis ordered to assess for presence of kidney stone, but no kidney stone was seen. She does have a known left ovarian cyst. After pyridium, she feels much better. Accu-Chek ordered due to possibility of diabetes due to her increased urinary frequency, but this was negative. Patient does not have any concern for STDs at this time. Instructed her to continue Pyridium and follow-up with her primary care physician. Given strict return precautions and she understands. - Vital Signs Vital signs: Temp Pulse Resp BP Pulse Ox 97.7 F 63 18 122/72 100 01/18/18 22:06 01/18/18 22:06 01/18/18 22:06 01/18/18 22:06 01/18/18 22:06 - Laboratory Laboratory results interpreted by me: 01/18/18 21:58 Urine Ketones TRACE H Urine Blood LARGE H Urine Urobilinogen 2.0 H - Diagnostic Test Radiology reviewed: Image reviewed, Reports reviewed Radiology results interpreted by me: CT A/P: NAD. 4 cm left ovarian cyst. Discharge - Discharge Clinical Impression: Dysuria, Left flank pain Condition: Stable Disposition: HOME, SELF-CARE Additional Instructions: Flank Pain We weren't able to prove an exact cause for your flank pain. Pain in the flank can be caused by a muscle strain or spasm. Sometimes a kidney stone causes pain, but can't be found on our tests. Infection in the kidney should be evident on a urine test. Early shingles can occasionally cause flank pain, without the rash that proves the diagnosis. On rare occasions, disease of the pancreas, aorta, spleen, or colon can create pain in the flank. At this time, there's no evidence of a dangerous condition, and it seems safe for you to be at home. If the pain goes away and does not come back, no further testing will be needed. If pain persists, or becomes more severe, we may need to repeat some tests or order additional new testing. Blood in the urine, urgency to urinate frequently, and pain that radiates to the groin can indicate a kidney stone. Fever may mean that the pain is due to infection, either of the kidney or the colon (diverticulitis). If your pain is early shingles, you should develop an eruption of blisters in the painful area within a few days. Call the doctor or return if you have pain that is spreading or becoming more severe, pain that does not resolve with time, fever, or any other new symptoms. URINARY ANESTHETIC AGENT: You have been given a medication (Pyridium) for urinary tract discomfort. This medicine numbs the lining of the bladder and urethra, resulting in less pain, burning, and urgency. You may take it as needed, according to instructions. When the symptoms resolve, you can stop this medication (be sure to continue any other medications the doctor has given you). This medicine turns the urine a dark orange. It may stain underwear. Occasionally, it can cause nausea. Return for evaluation if there are any unexpected effects, such as itching, hives, or shortness of breath. FOLLOW-UP CARE: If you have been referred to a physician for follow-up care, call the physician s office for an appointment as you were instructed or within the next two days. If you experience worsening or a significant change in your symptoms, notify the physician immediately or return to the Emergency Department at any time for re-evaluation. Prescriptions: Phenazopyridine HCl [Pyridium 200 mg Tablet] 200 mg PO TID #15 tablet Referrals: [facility] [Provider Group] - Follow up as needed
[2018-01-18] MEDS ORDERED: KETOROLAC TROMETHAMINE INJ/PF 30 MG/1 ML SDV IV ONE (22:30)
[2018-01-18] MEDS ORDERED: PHENAZOPYRIDINE HCL 200 MG TABLET PO ONE (22:38)
[2018-01-18 23:11] LABS: APPEARANCE,URINE SLIGHTLY-CLOUDY; BILIRUBIN,URINE NEGATIVE (NEGATIVE); COLOR,URINE YELLOW; GLUCOSE, URINE NEGATIVE (NEGATIVE); KETONES,URINE TRACE mg/dL (NEGATIVE); LEUKOCYTE ESTERASE,URINE NEGATIVE (NEGATIVE); NITRITE,URINE NEGATIVE (NEGATIVE); PROTEIN,URINE NEGATIVE (NEGATIVE)
--- NOTE | 2018-01-18 23:12 | RADIOLOGY REPORT (SQ) ---
EXAM DESCRIPTION: CT LTD RENAL STONE PROTOCOL ON COMPLETED DATE/TIME: 01/18/2018 11:00 pm REASON FOR STUDY: left flank pain, Hx of stones COMPARISON: None. TECHNIQUE: CT scan of the abdomen and pelvis performed without intravenous or oral contrast. Images reviewed with lung, soft tissue, and bone windows. Reconstructed coronal and sagittal MPR images revi ewed. All images stored on PACS. All CT scanners at this facility use dose modulation, iterative reconstruction, and/or weight based d osing when appropriate to reduce radiation dose to as low as reasonably achievable (ALARA). [facility]: Dose Right [facility]: CareDose [facility]: Dose Right [facility]: Teradose 4D [facility]: Smart Prestodiag RADIATION DOSE: CT Rad equipment meets quality standard of care and radiation dose reduction techniq ues were employed. CTDIvol: 16.6 mGy. DLP: 857 mGy-cm.mGy. LIMITATIONS: None. FINDINGS: LOWER CHEST: No significant findings. No nodules or infiltrates. NON-CONTRASTED LIVER, SPLEEN, ADRENALS: Evaluation limited by lack of IV contrast. No identified sign ificant masses. PANCREAS: No masses. No peripancreatic inflammatory changes. GALLBLADDER: No identified stones by CT criteria. No inflammatory changes to suggest cholecystitis. RIGHT KIDNEY AND URETER: No suspicious masses. Assessment limited by lack of IV contrast. No signif icant calcifications. No hydronephrosis or hydroureter. LEFT KIDNEY AND URETER: No suspicious masses. Assessment limited by lack of IV contrast. No signifi cant calcifications. No hydronephrosis or hydroureter. AORTA AND RETROPERITONEUM: No aneurysm. No retroperitoneal masses or adenopathy. BOWEL AND PERITONEAL CAVITY: No obvious masses or inflammatory changes. No free fluid. APPENDIX: Surgically absent. PELVIS, BLADDER, AND ABDOMINAL WALL:4 cm left ovarian cysts. Prior hysterectomy. No free fluid. Blad elsy normal. BONES: No significant findings. OTHER: No other significant finding. IMPRESSION: No acute inflammatory changes. 4 cm left ovarian cyst. COMMENT: Quality ID # [id number]: Final reports with documentation of one or more dose reduction techniques (e.g., Automated exposure control, adjustment of the mA and/or kV according to patient size, use of iterative reconstruction technique) TECHNICAL DOCUMENTATION: JOB ID: [id number] [id number] 2010 [employer]- All Rights Reserved Reading location - IP/workstation name: [email or web address]
[2018-01-19 00:02] VITALS: BP 114/73
== END 2018-01-19 00:02 | disposition home or self-care (01) ==
LOC: ER 21:50
DX: R30.0 Dysuria (principal); R10.9 Unspecified abdominal pain; R33.9 Retention of urine, unspecified; I10 Essential (primary) hypertension; E78.00 Pure hypercholesterolemia, unspecified
CPT/HCPCS: 99284; 96374; 82962; 81025; 81001; 76380; J1885; J3490

== ENCOUNTER → 2018-04-03 | Outpatient (CLI) | payer MEDICAID ==
--- NOTE | 2018-04-04 08:33 | RADIOLOGY REPORT (SQ) ---
EXAM DESCRIPTION: MRI CERVICAL SPINE WITHOUT COMPLETED DATE/TIME: 04/03/2018 6:51 pm REASON FOR STUDY: CERVICAL RADICULOPATHY M54.12 RADICULOPATHY, CERVICAL REGION COMPARISON: CT cervical spine 06/15/2014 Soft tissue neck two views 10/29/2017 TECHNIQUE: Sagittal and Axial imaging includes T1, T2, STIR and gradient echo sequences. LIMITATIONS: None. FINDINGS: ALIGNMENT: Normal. VERTEBRAE: Intact. BONE MARROW: Normal. No marrow replacement or reactive changes. DISCS: Decreased T2 weighted intervertebral disc signal from C2-3 through C6-7. Disc space height is maintained. HARDWARE: None in the spine. CORD AND BASE OF BRAIN: From the C7 level through the T2 level, there is mild prominence of the centr al canal within the spinal cord itself. This may be an incidental anatomic variant. Syrinx in the t horacic spine could not be excluded. Recommend MRI thoracic spine without contrast for followup. SOFT TISSUES: 1 cm and 2 cm cysts in the right lobe thyroid, unchanged from 06/15/2014 CT exam C1-C2: No significant spinal stenosis. C2-C3: No significant spinal stenosis or exit foraminal stenosis. C3-C4: No significant spinal stenosis or exit foraminal stenosis. C4-C5: No significant spinal stenosis or exit foraminal stenosis. C5-C6: No significant spinal stenosis or exit foraminal stenosis. Minimal central posterior disc bul ge. C6-C7: No significant spinal stenosis or exit foraminal stenosis. Mild central posterior disc bulge C7-T1: No significant spinal stenosis or exit foraminal stenosis. UPPER THORACIC: Incompletely imaged. No significant spinal stenosis or exit foraminal stenosis. OTHER: No other significant finding. IMPRESSION: Minimal degenerative disc changes at C5-6 and C6-7 without significant central or forami nal encroachment. Incidental finding of a prominent central canal within lower cervical and upper thoracic spinal cord at the bottom edge of the field of view. This is likely a benign anatomic variant. MRI thoracic spi ne recommended to evaluate for thoracic syrinx. TECHNICAL DOCUMENTATION: JOB ID: [id number] [email or web address]- All Rights Reserved Reading location - IP/workstation name: [email or web address]
== END ==
LOC: RAD 18:03
PROVIDERS: ATTEND Family Medicine
DX: M54.12 Radiculopathy, cervical region (principal)
CPT/HCPCS: 72141

== ENCOUNTER → 2018-04-11 | Outpatient (CLI) | payer MEDICAID ==
--- NOTE | 2018-04-12 08:31 | RADIOLOGY REPORT (SQ) ---
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 LIMITATIONS: None. FINDINGS: LOCALIZER: No worrisome findings. ALIGNMENT: Normal. VERTEBRAE: Intact. BONE MARROW: Normal. No marrow replacement or reactive changes. HARDWARE: None in the spine. CORD: The spinal cord is normal in size. There is mild prominence of the central canal within the sp inal cord itself, from the C7 through the T4 level, and from the T8-9 disc levels to the mid T11 leve l. No cord edema. No abnormal intrinsic cord signal. SOFT TISSUES: No soft tissue masses. THORACIC DISCS T1-T12: There is disc space loss of height mild vertebral body endplate sclerosis from T5-6 through T10-11. At T6-7, a chronic appearing central small disc protrusion is present, abuttin g the ventral cord without cord flattening or abnormal intrinsic cord signal. At T6-7 8, mild left p aracentral bulge and bony spurring is present, without significant central or foraminal encroachment UPPER LUMBAR: Incompletely imaged. No significant spinal stenosis or exit foraminal stenosis. OTHER: Incidental finding of a 1.5 cm cyst or a nodule in the lower pole right lobe thyroid. Thyroid ultrasound recommended for followup. IMPRESSION: Mild prominence of the central canal within the spinal cord itself in the upper thoracic and lower thoracic regions. TECHNICAL DOCUMENTATION: JOB ID: [id number] [email or web address]- All Rights Reserved Reading location - IP/workstation name: [email or web address]
== END ==
LOC: RAD 17:49
PROVIDERS: ATTEND Family Medicine
DX: G95.0 Syringomyelia and syringobulbia (principal)
CPT/HCPCS: 72146

== ENCOUNTER 2018-05-04 03:22 | Emergency (ER) | payer MEDICAID, OTHER ==
[2018-05-04] MEDS ORDERED: OXYCODONE-ACETAMINOPHEN 5-325 MG TABLET PO ONE (05:35)
--- NOTE | 2018-05-04 05:36 | ER Document Report ---
ED Medical Screen (RME) - General Chief Complaint: Back Injury Stated Complaint: FALL,ARM PAIN Time Seen by Provider: 05/04/18 04:56 Mode of Arrival: Ambulatory Information source: Patient Notes: 38-year-old female presents after a fall striking her back on a metal shelf. Patient admitted to pain down the right arm I have greeted and performed a rapid initial assessment of this patient. A comprehensive ED assessment and evaluation of the patient, analysis of test results and completion of the medical decision making process will be conducted by additional ED providers. PHYSICAL EXAMINATION: GENERAL: Well-appearing, well-nourished and in no acute distress. HEAD: Atraumatic, normocephalic. EYES: Pupils equal round extraocular movements intact, conjunctiva are normal. ENT: Nares patent NECK: Normal range of motion LUNGS: No respiratory distress Musculoskeletal: Normal range of motion NEUROLOGICAL: Normal speech, normal gait. PSYCH: Normal mood, normal affect. SKIN: right lateral thoracic contusion TRAVEL OUTSIDE OF THE [place] IN LAST 30 DAYS: No - Related Data Allergies/Adverse Reactions: erythromycin ethylsuccinate [From Pediazole] Allergy (Unknown, Verified 20:39) sulfisoxazole acetyl [From Pediazole] Allergy (Unknown, Verified 10/17/17 20:39) bee pollen [Bee Pollen] Allergy (Verified 10/17/17 20:39) ceftriaxone sodium [From Rocephin] Allergy (Verified 10/17/17 20:39) THROAT SWELLING doxycycline [Doxycycline] Allergy (Verified 10/17/17 20:39) Hives, thoat closes Penicillins Allergy (Verified 10/29/17 04:23) codeine [Codeine] Adverse Reaction (Verified 10/17/17 20:39) HYPERACTIVE metoclopramide HCl [From Reglan] Adverse Reaction (Verified 10/17/17 20:39) "MAKES ME FEEL CRAZY" prochlorperazine maleate [From Compazine] Adverse Reaction (Verified 10/17/17 20 :39) "MAKES ME CRAZY" promethazine HCl [From Phenergan] Adverse Reaction (Verified 10/17/17 20:39) Nausea Past Medical History - Social History Family history: None - Past Medical History Cardiac Medical History: Reports: Hx Hypercholesterolemia - NO MEDS, TRYING TO CONTROL WITH DIET, Hx Hypertension - No meds Denies: Hx Coronary Artery Disease, Hx Heart Attack Pulmonary Medical History: Reports: Hx Asthma, Hx Pneumonia - 2011 "walking" Denies: Hx Bronchitis, Hx COPD Neurological Medical History: Reports: Hx Migraine. Denies: Hx Cerebrovascular Accident, Hx Seizures Endocrine Medical History: Reports: Hx Diabetes Mellitus Type 2 - BORDERLINE-NO MEDS, Hx Hypothyroidism Renal/ Medical History: Reports: Hx Kidney Stones, Hx Ovarian Cysts. Denies: Hx Peritoneal Dialysis GI Medical History: Reports: Hx Gastroesophageal Reflux Disease, Hx Irritable Bowel, Hx Colonoscopy, Hx Endoscopy Musculoskeltal Medical History: Reports Hx Arthritis - Shailesh Carpal Tunnel Syndrome, Reports Hx Musculoskeletal Deformity, Reports Hx Musculoskeletal Trauma Skin Medical History: Reports Hx MRSA - rt big toe arm left Psychiatric Medical History: Reports: Hx Anxiety, Hx Bipolar Disorder, Hx Depression - anxiety Traumatic Medical History: Reports: Hx Fractures - left arm fingers and toes Infectious Medical History: Reports: Hx MRSA Past Surgical History: Reports: Hx Abdominal Surgery - ovarian cyst, Hx Appendectomy, Hx Hysterectomy, Hx Thyroid Surgery, Hx Tubal Ligation - Immunizations Immunizations up to date: Yes Hx Diphtheria, Pertussis, Tetanus Vaccination: Yes - 2012 Physical Exam - Vital signs Vitals: Temp Pulse Resp BP Pulse Ox 98.3 F 79 18 129/79 H 98 05/04/18 03:46 05/04/18 03:46 05/04/18 03:46 05/04/18 03:46 05/04/18 03:46 Course - Vital Signs Vital signs: Temp Pulse Resp BP Pulse Ox 98.3 F 79 18 129/79 H 98 05/04/18 03:46 05/04/18 03:46 05/04/18 03:46 05/04/18 03:46 05/04/18 03:46
--- NOTE | 2018-05-04 05:41 | RADIOLOGY REPORT (SQ) ---
EXAM DESCRIPTION: CT CERVICAL SPINE WITHOUT IV CONTRAST COMPLETED DATE/TME: 05/04/2018 04:56 CLINICAL HISTORY: 38 years Female, fall trauma Comparison: None. Technique: No contrast. Coronal and sagital reformat. This exam was performed according to our departmental dose-optimization program, which includes automated exposure control, adjustment of the mA and/or kV according to patient size and/or use of iterative reconstruction technique. [facility]: Dose Right [facility]: CareDose [facility]: Dose Right [facility]: Teradose 4D [facility]: [email or web address] / [email or web address] LIMITATIONS: None. Findings: Fracture: None. Vertebral alignment: Normal, including the craniocervical junction and cervicothoracic junction. Soft tissues: Small T2-T3 disc bulge. Mild C5-C6 disc desiccation. Indeterminate 2.4 cm low-attenuation lesion of the right thyroid lobe; thyroid ultrasound recommended. Impression: 1.Indeterminate 2.4 cm low-attenuation lesion of the right thyroid lobe; thyroid ultrasound recommended. 2. No acute findings of the cervical spine.
--- NOTE | 2018-05-04 07:14 | ER Document Report ---
ED Neck/Back Problem - General Mode of Arrival: Ambulatory Information source: Patient TRAVEL OUTSIDE OF THE [place] IN LAST 30 DAYS: No - General Chief Complaint: Back Injury Stated Complaint: FALL,ARM PAIN Time Seen by Provider: 05/04/18 04:56 Notes: Patient is a 38-year-old female who presents to the emergency department today after falling and injuring herself at work prior to arrival. 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 Patient states she struck a shelf approximately midway up her back off to the right hand side. Patient has had multiple MRIs of her spine secondary to "degenerative disc disease of C6 and C7" according to the patient. Patient denies the usage of any blood thinning medications. (GWEN LEÓN) - Related Data Allergies/Adverse Reactions: erythromycin ethylsuccinate [From Pediazole] Allergy (Unknown, Verified 20:39) sulfisoxazole acetyl [From Pediazole] Allergy (Unknown, Verified 10/17/17 20:39) bee pollen [Bee Pollen] Allergy (Verified 10/17/17 20:39) ceftriaxone sodium [From Rocephin] Allergy (Verified 10/17/17 20:39) THROAT SWELLING doxycycline [Doxycycline] Allergy (Verified 10/17/17 20:39) Hives, thoat closes Penicillins Allergy (Verified 10/29/17 04:23) codeine [Codeine] Adverse Reaction (Verified 10/17/17 20:39) HYPERACTIVE metoclopramide HCl [From Reglan] Adverse Reaction (Verified 10/17/17 20:39) "MAKES ME FEEL CRAZY" prochlorperazine maleate [From Compazine] Adverse Reaction (Verified 10/17/17 20 :39) "MAKES ME CRAZY" promethazine HCl [From Phenergan] Adverse Reaction (Verified 10/17/17 20:39) Nausea Past Medical History - General Information source: Patient - Social History Smoking Status: Unknown if Ever Smoked Cigarette use (# per day): No Frequency of alcohol use: None Drug Abuse: None Occupation: equipment lead Family History: Reviewed & Not Pertinent, Other - Adopted Patient has suicidal ideation: No Patient has homicidal ideation: No - Past Medical History Cardiac Medical History: Reports: Hx Hypercholesterolemia - NO MEDS, TRYING TO CONTROL WITH DIET, Hx Hypertension - No meds Pulmonary Medical History: Reports: Hx Asthma, Hx Pneumonia - 2011 "walking" Neurological Medical History: Reports: Hx Migraine Endocrine Medical History: Reports: Hx Diabetes Mellitus Type 2 - BORDERLINE-NO MEDS, Hx Hypothyroidism Renal/ Medical History: Reports: Hx Kidney Stones, Hx Ovarian Cysts GI Medical History: Reports: Hx Gastroesophageal Reflux Disease, Hx Irritable Bowel, Hx Colonoscopy, Hx Endoscopy Musculoskeltal Medical History: Reports Hx Arthritis - Shailesh Carpal Tunnel Syndrome, Reports Hx Musculoskeletal Deformity, Reports Hx Musculoskeletal Trauma Skin Medical History: Reports Hx MRSA - rt big toe arm left Psychiatric Medical History: Reports: Hx Anxiety, Hx Bipolar Disorder, Hx Depression - anxiety Traumatic Medical History: Reports: Hx Fractures - left arm fingers and toes Infectious Medical History: Reports: Hx MRSA Past Surgical History: Reports: Hx Abdominal Surgery - ovarian cyst, Hx Appendectomy, Hx Hysterectomy, Hx Thyroid Surgery, Hx Tubal Ligation - Immunizations Immunizations up to date: Yes Hx Diphtheria, Pertussis, Tetanus Vaccination: Yes - 2012 Review of Systems - Review of Systems Constitutional: No symptoms reported EENT: No symptoms reported Cardiovascular: No symptoms reported Respiratory: No symptoms reported Gastrointestinal: No symptoms reported Genitourinary: No symptoms reported Female Genitourinary: No symptoms reported Musculoskeletal: See HPI, Back pain Skin: No symptoms reported Hematologic/Lymphatic: No symptoms reported Neurological/Psychological: No symptoms reported -: Yes All other systems reviewed and negative Physical Exam - Vital signs Vitals: Temp Pulse Resp BP Pulse Ox 98.3 F 79 18 129/79 H 98 05/04/18 03:46 05/04/18 03:46 05/04/18 03:46 05/04/18 03:46 05/04/18 03:46 - Notes Notes: Physical Exam: General: Alert, appears mildly uncomfortable. HEENT: Normocephalic. Atraumatic. PERRL. Extraocular movements intact. Oropharynx clear. Neck: Supple. Non-tender. Respiratory: No respiratory distress. Clear and equal breath sounds bilaterally. Cardiovascular: Regular rate and rhythm. Abdominal: Normal Inspection. Non-tender. No distension. Normal Bowel Sounds. Back: Mid-thoracic tenderness with palpation. Right sided paraspinal tenderness with palpation, no crepitus. No deformity or step off. Extremities: Moves all four extremities. Upper extremities: Normal inspection. Normal ROM. Lower extremities: Normal inspection. No edema. Normal ROM. Neurological: Normal cognition. AAOx4. Normal speech. Psychological: Normal affect. Normal Mood. Skin: Warm. Dry. Normal color. (GWEN LEÓN) Course - Re-evaluation Re-evalutation: 05/04/18 08:44 No acute findings on CT of thoracic and cervical spine. Patient has no lower extremity complaints or lower lumbar pain. Will be discharged with back sprain with return precautions provided (LILA DEAN) - Vital Signs Vital signs: Temp Pulse Resp BP Pulse Ox 98.0 F 76 18 114/78 99 05/04/18 08:45 05/04/18 08:45 05/04/18 08:45 05/04/18 08:45 05/04/18 08:45 Discharge - Discharge Clinical Impression: Fall from ladder Qualifiers: Encounter type: initial encounter Qualified Code(s): W11.XXXA - Fall on and from ladder, initial encounter Back pain Qualifiers: Back pain location: thoracic back pain Chronicity: acute Back pain laterality: midline Qualified Code(s): M54.6 - Pain in thoracic spine Disposition: HOME, SELF-CARE Instructions: Contusion ([facility]), Ice Packs ([facility]), Warm Packs ([facility]) Additional Instructions: Please follow-up with your spinal surgeon within the next week for reevaluation or in the emergency department sooner for any worsening of symptoms. Prescriptions: Diazepam [Valium 5 mg Tablet] 5 mg PO ASDIR PRN #15 tablet PRN Reason: Forms: Return to Work Scribe Attestation: 05/06/18 15:02 I personally performed the services described documentation, reviewed and edited the documentation which was dictated to describe my presence, and it accurately records my words and actions. (LILA DEAN) Scribe Documentation - Scribe Written by [place]:: Hector Godoy, 05/04/2018 0825 acting as scribe for :: Bryce
--- NOTE | 2018-05-04 08:35 | RADIOLOGY REPORT (SQ) ---
EXAM DESCRIPTION: CT THORACIC SPINE WITHOUT COMPLETED DATE/TIME: 05/04/2018 6:48 am REASON FOR STUDY: fall contusion. PAIN TO T8 TO T 12 COMPARISON: MRI cervical spine 04/03/2018 MRI thoracic spine 04/11/[address] 05/04/2018 new TECHNIQUE: Axial images acquired through the thoracic spine without intravenous contrast. Images re viewed with lung, soft tissue and bone windows. Reconstructed coronal and sagittal MPR images review ed. Images stored on PACS. All CT scanners at this facility use dose modulation, iterative reconstruction, and/or weight based d osing when appropriate to reduce radiation dose to as low as reasonably achievable (ALARA). [facility]: Dose Right [facility]: CareDose [facility]: Dose Right [facility]: Teradose 4D [facility]: [employer] RADIATION DOSE: 39 mGy. LIMITATIONS: None. FINDINGS: VISUALIZED LUNGS: No acute opacities. No pneumothorax. SOFT TISSUES: No soft tissue swelling. No masses. VERTEBRAL BODIES: No fractures. No dislocation. No acute findings. DISCS: There is diffuse disc space loss of height from T5-6 through T10-11. At T6-7, a tiny central disc protrusion is present without significant central or foraminal encroachm ent. At T7-8, mild left paracentral disc bulge and bony spurring is present without significant central or foraminal encroachment. ALIGNMENT: Mild diffuse convex leftward thoracic curvature TRANSVERSE PROCESSES, POSTERIOR ELEMENTS: No fractures. No dislocation. No acute findings. There i s multilevel facet arthropathy throughout the thoracic spine without significant central or foraminal encroachment. HARDWARE: None in the spine. VISUALIZED RIBS: No fractures. OTHER: No other significant finding. IMPRESSION: No acute fracture. Mild diffuse degenerative changes throughout the thoracic spine intervertebral discs and facet joints . No high-grade central or foraminal encroachment TECHNICAL DOCUMENTATION: JOB ID: [id number] Quality ID # [id number]: Final reports with documentation of one or more dose reduction techniques (e.g., Au tomated exposure control, adjustment of the mA and/or kV according to patient size, use of iterative reconstruction technique) 2010 [employer]- All Rights Reserved Reading location - IP/workstation name: [facility]
[2018-05-04 09:04] VITALS: BP 114/78
== END 2018-05-04 08:50 | disposition home or self-care (01) ==
LOC: ER 03:22
DX: M54.6 Pain in thoracic spine (principal); W11.XXXA Fall on and from ladder, initial encounter; Y99.0 Civilian activity done for income or pay; I10 Essential (primary) hypertension; J45.909 Unspecified asthma, uncomplicated; E11.9 Type 2 diabetes mellitus without complications
CPT/HCPCS: 72125; 72128; 99284

== ENCOUNTER 2018-10-06 00:17 | Emergency (ER) | payer MEDICAID ==
[2018-10-06] MEDS ORDERED: LIDOCAINE 2% VISCOUS SOLN 20 ML UDCUP PO ONE (00:31)
[2018-10-06] MEDS ORDERED: FAMOTIDINE 20 MG TABLET PO ONE (00:31)
[2018-10-06] MEDS ORDERED: MAG HYDROX/AL HYDROX/SIMETH SUSP 30 ML UDCUP PO ONE (00:31)
--- NOTE | 2018-10-06 00:32 | ER Document Report ---
ED General - General Chief Complaint: Vomiting Stated Complaint: NAUSEA/VOMITING Time Seen by Provider: 10/06/18 00:23 Notes: Patient is a 38-year old female with a past medical history of gastro- esophageal reflux, obesity, depression, anxiety, who presents with epigastric abdominal pain with associated nausea and vomiting as well as an acute panic attack. The patient states that she ate Thanksgiving dinner, had significant dietary indiscretions tonight, several hours thereafter developed epigastric abdominal discomfort and fullness with associated nausea. States that she began to feel she was having a panic attack so she took an alprazolam. She states about 10-20 minutes thereafter she began vomiting and at that point had a full-blown panic attack. EMS was contacted and transported the patient. She states that this time she feels overall much improved. States that she does not feel like she should have called 911. She does note an ongoing mild, throbbing, epigastric abdominal pain without radiation. No chest pain, shortness of breath or syncope. She has not tried anything to improve her symptoms. She does not regularly take her reflux medications as prescribed. She has not contacted her primary physician regarding today's concerns. She denies any abdominal surgical history. TRAVEL OUTSIDE OF THE [place] IN LAST 30 DAYS: No - Related Data Allergies/Adverse Reactions: erythromycin ethylsuccinate [From Pediazole] Allergy (Unknown, Verified 20:39) sulfisoxazole acetyl [From Pediazole] Allergy (Unknown, Verified 10/17/17 20:39) bee pollen [Bee Pollen] Allergy (Verified 10/17/17 20:39) ceftriaxone sodium [From Rocephin] Allergy (Verified 10/17/17 20:39) THROAT SWELLING doxycycline [Doxycycline] Allergy (Verified 10/17/17 20:39) Hives, thoat closes Penicillins Allergy (Verified 10/29/17 04:23) codeine [Codeine] Adverse Reaction (Verified 10/17/17 20:39) HYPERACTIVE metoclopramide HCl [From Reglan] Adverse Reaction (Verified 10/17/17 20:39) "MAKES ME FEEL CRAZY" prochlorperazine maleate [From Compazine] Adverse Reaction (Verified 10/17/17 20 :39) "MAKES ME CRAZY" promethazine HCl [From Phenergan] Adverse Reaction (Verified 10/17/17 20:39) Nausea Past Medical History - General Information source: Patient - Social History Smoking Status: Never Smoker Frequency of alcohol use: None Drug Abuse: None Lives with: Family Family History: Reviewed & Not Pertinent, Other - Adopted - Past Medical History Cardiac Medical History: Reports: Hx Hypercholesterolemia - NO MEDS, TRYING TO CONTROL WITH DIET, Hx Hypertension - No meds Denies: Hx Coronary Artery Disease, Hx Heart Attack Pulmonary Medical History: Reports: Hx Asthma, Hx Pneumonia - 2011 "walking" Denies: Hx Bronchitis, Hx COPD Neurological Medical History: Reports: Hx Migraine. Denies: Hx Cerebrovascular Accident, Hx Seizures Endocrine Medical History: Reports: Hx Diabetes Mellitus Type 2 - BORDERLINE-NO MEDS, Hx Hypothyroidism Renal/ Medical History: Reports: Hx Kidney Stones, Hx Ovarian Cysts. Denies: Hx Peritoneal Dialysis GI Medical History: Reports: Hx Gastroesophageal Reflux Disease, Hx Irritable Bowel, Hx Colonoscopy, Hx Endoscopy Musculoskeletal Medical History: Reports Hx Arthritis - Shailesh Carpal Tunnel Syndrome, Reports Hx Musculoskeletal Deformity, Reports Hx Musculoskeletal Trauma Skin Medical History: Reports Hx MRSA - rt big toe arm left Psychiatric Medical History: Reports: Hx Anxiety, Hx Bipolar Disorder, Hx Depression - anxiety Traumatic Medical History: Reports: Hx Fractures - left arm fingers and toes Infectious Medical History: Reports: Hx MRSA Past Surgical History: Reports: Hx Abdominal Surgery - ovarian cyst, Hx Appendectomy, Hx Hysterectomy, Hx Thyroid Surgery, Hx Tubal Ligation - Immunizations Immunizations up to date: Yes Hx Diphtheria, Pertussis, Tetanus Vaccination: Yes - 2012 Review of Systems - Review of Systems Notes: Constitutional: Negative for fever. HENT: Negative for sore throat. Eyes: Negative for visual changes. Cardiovascular: Negative for chest pain. Respiratory: Negative for shortness of breath. Gastrointestinal: Positive for upper abdominal pain and vomiting Genitourinary: Negative for dysuria. Musculoskeletal: Negative for back pain. Skin: Negative for rash. Neurological: Negative for headaches, weakness or numbness. 10 point ROS negative except as marked above and in HPI. Physical Exam - Vital signs Vitals: Temp Pulse Resp BP Pulse Ox 97.8 F 98 16 122/76 96 10/06/18 00:21 10/06/18 00:21 10/06/18 00:21 10/06/18 00:21 10/06/18 00:21 Interpretation: Normal Notes: PHYSICAL EXAMINATION: GENERAL: Well-appearing, well-nourished and in no acute distress. HEAD: Atraumatic, normocephalic. EYES: Pupils equal round and reactive to light, extraocular movements intact, sclera anicteric, conjunctiva are normal. ENT: nares patent, oropharynx clear without exudates. Moist mucous membranes. NECK: Normal range of motion, supple without lymphadenopathy LUNGS: Breath sounds clear to auscultation bilaterally and equal. No wheezes rales or rhonchi. HEART: Regular rate and rhythm without murmurs ABDOMEN: Soft, nontender, normoactive bowel sounds. No guarding, no rebound. No masses appreciated. EXTREMITIES: Normal range of motion, no pitting or edema. No cyanosis. NEUROLOGICAL: No focal neurological deficits. Moves all extremities spontaneously and on command. PSYCH: Normal mood, normal affect. SKIN: Warm, Dry, normal turgor, no rashes or lesions noted. Course - Re-evaluation Re-evalutation: 10/06/18 00:31 Patient presents with epigastric abdominal pain with associated reflux symptoms most consistent with likely gastritis. Patient has no focal abdominal tenderness on examination. Right upper quadrant ultrasound does not demonstrate any evidence of acute cholecystitis or cholelithiasis. Lipase is normal. No LFT changes. Based on history and exam, I do not suspect ACS, pulmonary embolus, SBO, mesenteric ischemia, acute pancreatitis, biliary pathology, or an abdominal aortic dissection. Patient has had improvement of symptoms here with a GI cocktail. At this time will discharge with return precautions and follow-up recommendations. Verbal discharge instructions given a the bedside and opportunity for questions given. Medication warnings reviewed. Patient is in agreement with this plan and has verbalized understanding of return precautions and the need for primary care follow-up in the next 24-72 hours. - Vital Signs Vital signs: Temp Pulse Resp BP Pulse Ox 97.8 F 98 16 122/76 96 10/06/18 00:21 10/06/18 00:21 10/06/18 00:21 10/06/18 00:21 10/06/18 00:21 - Laboratory Result Diagrams: 10/06/18 00:36 10/06/18 00:36 Laboratory results interpreted by me: 10/06/18 00:36 Glucose 189 H Discharge - Discharge Clinical Impression: Epigastric abdominal pain, Panic reaction Nausea and vomiting Qualifiers: Vomiting type: unspecified Vomiting Intractability: non-intractable Qualified Code(s): R11.2 - Nausea with vomiting, unspecified Condition: Good Disposition: HOME, SELF-CARE Additional Instructions: Your symptoms appear to be most consistent with stomach or upper intestinal irritation. Please begin taking famotidine 40 mg in the morning and 40 mg at night. You may also take medicine such as Pepto-Bismol or Tums to assist with your pain. Please return to emergency department immediately if you have worsening of your pain, shortness of breath, vomiting, become unable to exert yourself due to pain or difficulty breathing, you pass out, or have any pain that radiates into your arms, jaw, or back. Please also return if you have any additional symptoms that are concerning to you. As we have discussed, the most important thing is lifestyle changes. You need to avoid smoking, sodas, tea, coffee, alcohol, spicy foods, and acidic foods such as citrus fruits, tomato based products, berries, and most fruit juices. Prescriptions: Famotidine 40 mg PO BID #60 tablet Ondansetron [Zofran Odt 4 mg Tablet] 1 - 2 tab PO Q4H PRN #15 tab.rapdis PRN Reason: For Nausea/Vomiting
[2018-10-06 00:49] LABS: ABSOLUTE EOSINOPHILS # (AUTO) 0.2 10^3/uL (0.0-0.6); ABSOLUTE LYMPHOCYTES (AUTO) 1.8 10^3/uL (0.5-4.7); ABSOLUTE MONOCYTES (AUTO) 0.5 10^3/uL (0.1-1.4); ABSOLUTE NEUT (AUTO) 5.2 10^3/uL (1.7-8.2); BASOPHILS % (AUTO) 0.5 % (0-2); EOSINOPHILS % (AUTO) 2.6 % (0-6); HEMATOCRIT 43.3 % (36.0-47.0); HEMOGLOBIN 14.9 g/dL (12.0-15.5); LYMPHOCYTES % (AUTO) 23.5 % (13-45); MEAN CORPUSCULAR HEMOGLOBIN 29.7 pg (27.0-33.4); MEAN CORPUSCULAR HGB CONC 34.4 g/dL (32.0-36.0); MEAN CORPUSCULAR VOLUME 87 fl (80-97); MONOCYTES % (AUTO) 6.5 % (3-13); PLATELET COUNT 169 10^3/uL (150-450); RED CELL DISTRIBUTION WIDTH 13.1 % (11.5-14.0); SEGMENTED NEUTROPHILS % (AUTO) 66.9 % (42-78); TOTAL CELLS COUNTED % (AUTO) 100 %; WHITE BLOOD COUNT 7.8 10^3/uL (4.0-10.5)
[2018-10-06 01:07] LABS: ALANINE AMINOTRANSFERASE 16 U/L (9-52); ALBUMIN 3.8 g/dL (3.5-5.0); ALKALINE PHOSPHATASE 54 U/L (38-126); ANION GAP 9 (5-19); ASPARTATE AMINO TRANSFERASE 17 U/L (14-36); BILIRUBIN,DIRECT 0.3 mg/dL (0.0-0.4); BILIRUBIN,TOTAL 0.4 mg/dL (0.2-1.3); BLOOD UREA NITROGEN 15 mg/dL (7-20); CALCIUM 9.3 mg/dL (8.4-10.2); CARBON DIOXIDE 29 mmol/L (22-30); CHLORIDE 104 mmol/L (98-107); GLUCOSE 189 mg/dL (75-110); LIPASE 209.5 U/L (23-300); SODIUM 142.1 mmol/L (137-145); TOTAL PROTEIN 6.6 g/dL (6.3-8.2)
--- NOTE | 2018-10-06 02:36 | RADIOLOGY REPORT (SQ) ---
EXAM DESCRIPTION: US ABDOMEN LIMITED COMPLETED DATE/TME: 10/06/2018 00:24 CLINICAL HISTORY: 38 years Female, upper abdominal pain Comparison: CT, January 18, 2018 LIMITATIONS: None. FINDINGS: Decompressed gallbladder, negative sonographic Hernandez's test, liver, a 0.4-cm diameter common bile duct, no intrahepatic ductal dilation, 13-cm right kidney with mild hydronephrosis, obscured pancreas, visualized vasculature/abdominal aorta, and no significant ascites appear otherwise unremarkable. IMPRESSION: Mild right hydronephrosis pattern.
[2018-10-06 03:11] VITALS: BP 132/74
--- NOTE | 2018-10-06 19:15 | EKG REPORT ---
SEVERITY:- NORMAL ECG - SINUS RHYTHM : Confirmed by: Luzma Randall MD 06-Oct-2018 19:14:25
== END 2018-10-06 03:11 | disposition home or self-care (01) ==
LOC: ER 00:17
DX: K21.9 Gastro-esophageal reflux disease without esophagitis (principal); F41.0 Panic disorder [episodic paroxysmal anxiety]; R11.2 Nausea with vomiting, unspecified; E66.9 Obesity, unspecified; F32.9 Major depressive disorder, single episode, unspecified; F41.9 Anxiety disorder, unspecified; R10.13 Epigastric pain; Z79.899 Other long term (current) drug therapy; I10 Essential (primary) hypertension; J45.909 Unspecified asthma, uncomplicated
CPT/HCPCS: 93005; 99284; 36415; 83690; 84703; 85025; 80053; 84484; 76705; 93010; J3490 ×3

== ENCOUNTER 2018-11-24 10:25 | Emergency (ER) | payer MEDICAID ==
--- NOTE | 2018-11-24 11:33 | ER Document Report ---
HPI - HPI Patient complains to provider of: Right arm pain and swelling Time Seen by Provider: 11/24/18 11:32 Onset: Other - Chronic but increased the past 4 days Onset/Duration: Persistent Quality of pain: Achy Severity: Severe Pain Level: 5 Context: She presents emergency department with complaints of right hand swelling and pain. Patient reports history of bulging disc in her neck. She was supposed to have surgery but she was unable to due to family issues. 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 She is right handed. She reports recently doing this and her arm hurts. Patient is on Lyrica and several other medications. She is currently under the care of a primary care provider. She is unable to get an appointment with her primary care due to her schedule and being a single parent. Associated Symptoms: None Exacerbated by: Denies Relieved by: Denies Similar symptoms previously: Yes Recently seen / treated by doctor: No - REPRODUCTIVE Reproductive: DENIES: : Past Medical History - General Information source: Patient - Social History Smoking Status: Current Every Day Smoker Cigarette use (# per day): Yes Frequency of alcohol use: None Drug Abuse: None Occupation: Construction Lives with: Family Family History: Reviewed & Not Pertinent, Other - Adopted Patient has suicidal ideation: No Patient has homicidal ideation: No - Past Medical History Cardiac Medical History: Reports: Hx Hypercholesterolemia - NO MEDS, TRYING TO CONTROL WITH DIET, Hx Hypertension - No meds Denies: Hx Coronary Artery Disease, Hx Heart Attack Pulmonary Medical History: Reports: Hx Asthma, Hx Pneumonia - 2011 "walking" Denies: Hx Bronchitis, Hx COPD Neurological Medical History: Reports: Hx Migraine. Denies: Hx Cerebrovascular Accident, Hx Seizures Endocrine Medical History: Reports: Hx Diabetes Mellitus Type 2 - BORDERLINE-NO MEDS, Hx Hypothyroidism Renal/ Medical History: Reports: Hx Kidney Stones, Hx Ovarian Cysts. Denies: Hx Peritoneal Dialysis GI Medical History: Reports: Hx Gastroesophageal Reflux Disease, Hx Irritable Bowel, Hx Colonoscopy, Hx Endoscopy Musculoskeletal Medical History: Reports Hx Arthritis - Shailesh Carpal Tunnel Syndrome, Reports Hx Musculoskeletal Deformity, Reports Hx Musculoskeletal Traum a Skin Medical History: Reports Hx MRSA - rt big toe arm left Psychiatric Medical History: Reports: Hx Anxiety, Hx Bipolar Disorder, Hx Depression - anxiety Traumatic Medical History: Reports: Hx Fractures - left arm fingers and toes Infectious Medical History: Reports: Hx MRSA Past Surgical History: Reports: Hx Abdominal Surgery - ovarian cyst, Hx Appendectomy, Hx Hysterectomy, Hx Thyroid Surgery, Hx Tubal Ligation - Immunizations Immunizations up to date: Yes Hx Diphtheria, Pertussis, Tetanus Vaccination: Yes - 2012 [facility] Provider Document - CONSTITUTIONAL Agree With Documented VS: Yes Exam Limitations: No Limitations General Appearance: WD/WN, No Apparent Distress - INFECTION CONTROL TRAVEL OUTSIDE OF THE [place] IN LAST 30 DAYS: No - HEENT HEENT: Atraumatic, Normocephalic - NECK Neck: Normal Inspection, Supple - RESPIRATORY Respiratory: No Respiratory Distress - CARDIOVASCULAR Cardiovascular: Regular Rate - GI/ABDOMEN Gastrointestinal: Abdomen Soft, Abdomen Non-Tender - MUSCULOSKELETAL/EXTREMETIES Musculoskeletal/Extremeties: MAEW, FROM, Non-Tender - No obvious deformity good distal movement and sensation good radial pulse good cap refill no obvious swelling, no erythema warmth. Full range of motion - NEURO Level of Consciousness: Awake, Alert, Appropriate Motor/Sensory: No Motor Deficit - DERM Integumentary: Warm, Dry Course - Re-evaluation Re-evalutation: 11/24/18 15:30 Patient was instructed to continue her current medications and follow-up with her primary care and the surgeon for reevaluation. She was instructed on elevation and rest. She verbalized understanding to all instructions. No x-ray done due to no trauma, no erythema swelling or warmth Dictation of this chart was performed using voice recognition software; therefore, there may be some unintended grammatical errors. - Vital Signs Vital signs: Temp Pulse Resp BP Pulse Ox 98.6 F 75 16 149/69 H 98 11/24/18 10:30 11/24/18 10:30 11/24/18 10:30 11/24/18 10:30 11/24/18 10:30 Discharge - Discharge Clinical Impression: right arm/hand pain Condition: Stable Disposition: HOME, SELF-CARE Instructions: Anti-Inflammatory Medication ([facility]) Additional Instructions: *You have been evaluated for right arm and pain and swelling *Rest/Elevate arm *Follow up with primary care provider or surgeon for reevaluation *Take medication as prescribed *Return to ED for worsening condition, changes, needs Monitor your blood pressure. Your blood pressure was elevated today. This may be because you were anxious, in pain or because you need medication. It is important to follow up with your primary care provider for full evaluation. Forms: Elevated Blood Pressure Referrals: VICENTE MACK MD [Primary Care Provider] - Follow up as needed
[2018-11-24 12:18] VITALS: BP 123/73
== END 2018-11-24 12:18 | disposition home or self-care (01) ==
LOC: ER 10:25
DX: M79.641 Pain in right hand (principal); M50.80 Other cervical disc disorders, unspecified cervical region; Z79.899 Other long term (current) drug therapy; F17.210 Nicotine dependence, cigarettes, uncomplicated; I10 Essential (primary) hypertension; E11.9 Type 2 diabetes mellitus without complications
CPT/HCPCS: 99283

== ENCOUNTER → 2018-12-19 | Outpatient (CLI) | payer MEDICAID ==
--- NOTE | 2018-12-19 17:30 | RADIOLOGY REPORT (SQ) ---
EXAM DESCRIPTION: MRI CERVICAL SPINE WITHOUT COMPLETED DATE/TIME: 12/19/2018 3:00 pm REASON FOR STUDY: SYRINGOMYELIA (G95.0) G95.0 SYRINGOMYELIA AND SYRINGOBULBIA COMPARISON: CT cervical spine 05/04/2018 MRI cervical spine 04/03/2018 MRI thoracic spine 12/19/2018, 04/11/2018 TECHNIQUE: Sagittal and Axial imaging includes T1, T2, STIR and gradient echo sequences. LIMITATIONS: None. FINDINGS: ALIGNMENT: Normal. VERTEBRAE: Intact. BONE MARROW: Normal. No marrow replacement or reactive changes. DISCS: Decreased T2 weighted intervertebral disc signal throughout the cervical spine. Minimal anter ior disc space loss of height at C5-6 and C6-7 HARDWARE: None in the spine. CORD AND BASE OF BRAIN: There is mild prominence of the central canal within the cervical spinal cord , from the C6-7 disc level to the mid T3 level. This similar compared to studies from 04/11/2018 SOFT TISSUES: No soft tissue masses. C1-C2: No significant spinal stenosis. C2-C3: No significant spinal stenosis or exit foraminal stenosis. C3-C4: No significant spinal stenosis or exit foraminal stenosis. C4-C5: No significant spinal stenosis or exit foraminal stenosis. C5-C6: Mild central posterior disc bulging partly effaces the ventral thecal sac and abuts the ventra l cord without cord flattening or abnormal intrinsic cord signal. No significant central canal steno sis. Very mild bilateral facet hypertrophy without foraminal narrowing. C6-C7: Mild central posterior disc bulging partly effaces the ventral thecal sac and abuts the ventra l cord without cord flattening or abnormal intrinsic cord signal. No significant central canal steno sis. Mild bilateral facet hypertrophy without significant foraminal narrowing. C7-T1: No significant spinal stenosis or exit foraminal stenosis. UPPER THORACIC: Incompletely imaged. No significant spinal stenosis or exit foraminal stenosis. OTHER: No other significant finding. IMPRESSION: Minimal degenerative disc changes at C5-6 and C6-7 Incidental mild prominence of the central canal within the cervical spinal cord from the C6-7 level d own to the mid T3 level. This is stable compared to prior MRI cervical spine 04/03/2018 TECHNICAL DOCUMENTATION: JOB ID: [id number] [employer]- All Rights Reserved Reading location - IP/workstation name: [email or web address]
--- NOTE | 2018-12-19 17:35 | RADIOLOGY REPORT (SQ) ---
EXAM DESCRIPTION: MRI THORACIC SPINE WITHOUT COMPLETED DATE/TIME: 12/19/2018 3:00 pm REASON FOR STUDY: SYRINGOMYELIA (G95.0) G95.0 SYRINGOMYELIA AND SYRINGOBULBIA COMPARISON: MRI thoracic spine 04/11/2018 TECHNIQUE: Sagittal and Axial imaging includes T1, T2, STIR and gradient echo sequences. LIMITATIONS: None. FINDINGS: LOCALIZER: No worrisome findings. ALIGNMENT: Normal. VERTEBRAE: Intact. BONE MARROW: Normal. No marrow replacement or reactive changes. HARDWARE: None in the spine. CORD: Benign appearing prominence of the central canal within the spinal cord is present, similar com pared to prior MRI thoracic spine 04/11/2018. Mild prominence of the central canal within the spinal cord from the C6-7 level down to the T3-4 level. This is also seen from the T8-9 level down to the m id T11 level. SOFT TISSUES: No soft tissue masses. THORACIC DISCS T1-T12: Diffuse degenerative disc changes are present with disc space loss of height, decreased T2 weighted intervertebral disc signal, and posterior disc bulging at the at T6-7, and T7-8 , T8-9, and T9-10 levels. This is similar compared to 04/11/2018. No significant central stenosis or foraminal encroachment at these levels. LOWER CERVICAL: Incompletely imaged. No significant spinal stenosis or exit foraminal stenosis. UPPER LUMBAR: Incompletely imaged. No significant spinal stenosis or exit foraminal stenosis. OTHER: No other significant finding. IMPRESSION: Stable mild prominence of the central canal within the spinal cord Midthoracic degenerative disc changes without significant central canal or foraminal encroachment TECHNICAL DOCUMENTATION: JOB ID: [id number]- All Rights Reserved Reading location - IP/workstation name: [email or web address]
== END ==
LOC: RAD 12:57
PROVIDERS: ATTEND Specialist
DX: G95.0 Syringomyelia and syringobulbia (principal)
CPT/HCPCS: 72141; 72146

== ENCOUNTER → 2019-03-07 | Outpatient (CLI) | payer MEDICAID ==
--- NOTE | 2019-03-07 16:31 | RADIOLOGY REPORT (SQ) ---
EXAM DESCRIPTION: CERV SP 3 VIEW OR LESS COMPLETED DATE/TIME: 03/07/2019 3:28 pm REASON FOR STUDY: CERVICAL RADICULOPATHY COMPARISON: MRI cervical spine 04/03/2018, 12/19/2018 CT cervical spine 05/04/2018 TECHNIQUE: Lateral cervical spine flexion film. Lateral cervical spine extension film. Two views LIMITATIONS: None. FINDINGS: Cervical spine is seen down to the inferior endplate of C7. Patient is post discectomy an d fusion with metallic disc spacers and an anterior fixation plate with anchoring screws in the C5, C 6 and C7 vertebral bodies. No prevertebral soft tissue swelling. No instability on flexion/ extension. Please note that the C7-T1 disc space is not well seen. IMPRESSION: Post fusion at C5-6 and C6-7 No instability on flexion/extension TECHNICAL DOCUMENTATION: JOB ID: [id number] [employer]- All Rights Reserved Reading location - IP/workstation name: [email or web address]
== END ==
LOC: RAD 15:09
PROVIDERS: ATTEND Specialist
DX: M54.12 Radiculopathy, cervical region (principal)
CPT/HCPCS: 72040

== ENCOUNTER → 2019-04-18 | Outpatient (CLI) | payer MEDICAID ==
--- NOTE | 2019-04-18 16:06 | RADIOLOGY REPORT (SQ) ---
EXAM DESCRIPTION: CERV SP 3 VIEW OR LESS COMPLETED DATE/TIME: 04/18/2019 3:21 pm REASON FOR STUDY: CERVICAL RADICULOPATHY COMPARISON: 03/07/2019. FINDINGS: 2 upright views of the cervical spine, lateral flexion-extension. Normal alignment. No abnormal motion with good excursion noted. C5 through C7 anterior instrumentation looks intact. TECHNICAL DOCUMENTATION: JOB ID: [id number] Reading location - IP/workstation name: [email or web address]
== END ==
LOC: RAD 14:59
PROVIDERS: ATTEND Specialist
DX: M54.12 Radiculopathy, cervical region (principal)
CPT/HCPCS: 72040

== ENCOUNTER → 2019-07-05 | Outpatient (CLI) | payer MEDICAID ==
--- NOTE | 2019-07-05 10:00 | RADIOLOGY REPORT (SQ) ---
EXAM DESCRIPTION: MRI CERVICAL SPINE WITHOUT COMPLETED DATE/TIME: 07/05/2019 9:10 am REASON FOR STUDY: M54.12 RADICULOPATHY, CERVICAL REGION M54.12 RADICULOPATHY, CERVICAL REGION COMPARISON: 12/19/2018, 04/18/2019 plain films. TECHNIQUE: Sagittal and Axial imaging includes T1, T2, STIR and gradient echo sequences. LIMITATIONS: None. FINDINGS: ALIGNMENT: Normal. VERTEBRAE: Intact. BONE MARROW: Normal. No marrow replacement or reactive changes. DISCS: Normal. No significant abnormal signal or loss of height. HARDWARE: Anterior cervical fusion C5 through C7 with disc prostheses. CORD AND BASE OF BRAIN: Stable findings. Similar to previous. Prominent central canal C7-T3. SOFT TISSUES: No soft tissue masses. C1-C2: No significant spinal stenosis. C2-C3: No significant spinal stenosis or exit foraminal stenosis. C3-C4: No significant spinal stenosis or exit foraminal stenosis. C4-C5: No significant spinal stenosis or exit foraminal stenosis. C5-C6: Interval surgical changes. No significant spinal stenosis or exit foraminal stenosis. C6-C7: Interval surgical changes. No significant spinal stenosis or exit foraminal stenosis. C7-T1: No significant spinal stenosis or exit foraminal stenosis. UPPER THORACIC: Incompletely imaged. No significant spinal stenosis or exit foraminal stenosis. OTHER: No other significant finding. IMPRESSION: Interval anterior cervical fusion C5-6 and C6-7. No significant spinal stenosis or exit foraminal stenosis. Stable appearance of the cervical cord. TECHNICAL DOCUMENTATION: JOB ID: [id number] [employer]- All Rights Reserved Reading location - IP/workstation name: [email or web address]
== END ==
LOC: WI 08:13
PROVIDERS: ATTEND Family Medicine
DX: M54.12 Radiculopathy, cervical region (principal)
CPT/HCPCS: 72141

== ENCOUNTER 2019-08-02 21:26 | Emergency (ER) | payer MEDICAID ==
--- NOTE | 2019-08-02 23:47 | ER Document Report ---
HPI - HPI Patient complains to provider of: right hand pain, post op complication, wound dehiscence Time Seen by Provider: 08/02/19 23:45 Onset: This afternoon Severity: Mild Pain Level: 2 Associated Symptoms: None Exacerbated by: Movement Relieved by: Remaining still Similar symptoms previously: No Recently seen / treated by doctor: No - ROS Systems Reviewed and Negative: Yes All other systems reviewed and negative - REPRODUCTIVE Reproductive: DENIES: : Past Medical History - General Information source: Patient - Social History Smoking Status: Unknown if Ever Smoked Frequency of alcohol use: None Drug Abuse: None Family History: Reviewed & Not Pertinent, Other - Adopted Patient has suicidal ideation: No Patient has homicidal ideation: No - Past Medical History Cardiac Medical History: Denies: Hx Coronary Artery Disease, Hx Heart Attack Pulmonary Medical History: Reports: Hx Asthma Denies: Hx Bronchitis, Hx COPD Neurological Medical History: Reports: Hx Migraine. Denies: Hx Cerebrovascular Accident, Hx Seizures Endocrine Medical History: Reports: Hx Hypothyroidism Renal/ Medical History: Reports: Hx Kidney Stones, Hx Ovarian Cysts. Denies: Hx Peritoneal Dialysis GI Medical History: Reports: Hx Gastroesophageal Reflux Disease, Hx Irritable Bowel Musculoskeletal Medical History: Reports Hx Arthritis - Shailesh Carpal Tunnel Syndrome, Reports Hx Musculoskeletal Deformity, Reports Hx Musculoskeletal Trauma Skin Medical History: Reports Hx MRSA Psychiatric Medical History: Reports: Hx Anxiety, Hx Bipolar Disorder, Hx Depression Traumatic Medical History: Reports: Hx Fractures - left arm fingers and toes Infectious Medical History: Reports: Hx MRSA Past Surgical History: Reports: Hx Abdominal Surgery - ovarian cyst, Hx Appendectomy, Hx Hysterectomy, Hx Thyroid Surgery, Hx Tubal Ligation - Immunizations Immunizations up to date: Yes Hx Diphtheria, Pertussis, Tetanus Vaccination: Yes - 2012 Vertical Provider Document - CONSTITUTIONAL Agree With Documented VS: Yes Exam Limitations: No Limitations General Appearance: WD/WN - INFECTION CONTROL TRAVEL OUTSIDE OF THE [place] IN LAST 30 DAYS: No - HEENT HEENT: Normocephalic, PERRLA Course - Re-evaluation Re-evalutation: Category Date Time Status Wound care [Dressing/Wound Care (ED)] NOW Care 08/03/19 01:13 Active Azithromycin [Zithromax 250 mg Tablet] Med 08/03/19 01:08 Discontinued 500 mg PO NOW ONE Clindamycin HCl [Cleocin 150 mg Capsule] Med 08/03/19 01:08 Discontinued 300 mg PO NOW ONE - Vital Signs Vital signs: Temp Pulse Resp BP Pulse Ox 98.4 F 84 20 107/89 H 98 08/02/19 21:47 08/02/19 21:47 08/02/19 21:47 08/02/19 21:47 08/02/19 21:47 Temp Pulse Pulse Resp BP BP Pulse Ox 08/03/19 01:30 98.3 F 82 16 128/72 H 97 08/02/19 21:47 98.4 F 84 20 107/89 H 98 Discharge - Discharge Clinical Impression: Cat scratch Post-operative complication Qualifiers: Surgical complication system/body Area: skin Surgical complication type: unspecified Procedure type: non-dermatologic Qualified Code(s): L76.82 - Other postprocedural complications of skin and subcutaneous tissue Wound dehiscence, surgical Qualifiers: Encounter type: initial encounter Qualified Code(s): T81.31XA - Disruption of external operation (surgical) wound, not elsewhere classified, initial encounter Condition: Good Disposition: HOME, SELF-CARE Instructions: [facility] ([facility]) Additional Instructions: Follow-up with surgeon in 1 to 2 days. Return for any worsening symptoms. tylenol or motrin as needed for any pain or fever if not allergic. take the medication as prescribed. Wound care as discussed. Take the antibiotics with food. Monitor closely for any signs of infection. Prescriptions: Clindamycin HCl 300 mg PO TID #21 capsule Azithromycin [Zithromax 250 mg Tablet] 250 mg PO ASDIR PRN #4 tablet PRN Reason: Referrals: ROLA OLMOS DO [ACTIVE STAFF] - Follow up as needed KRISTI HALL MD [ASSOCIATE] - Follow up tomorrow HERB HALL DO [ACTIVE STAFF] - Follow up tomorrow
[2019-08-03] MEDS ORDERED: AZITHROMYCIN 250 MG TABLET PO ONE (01:08)
[2019-08-03] MEDS ORDERED: CLINDAMYCIN HCL 150 MG CAPSULE PO ONE (01:08)
[2019-08-03 02:16] VITALS: BP 128/72
== END 2019-08-03 01:35 | disposition home or self-care (01) ==
LOC: ER 21:26
DX: T81.31XA Disruption of external operation (surgical) wound, not elsewhere classified, initial encounter (principal); W55.03XA Scratched by cat, initial encounter; J45.909 Unspecified asthma, uncomplicated
CPT/HCPCS: 99283; Q0144; J3490

== ENCOUNTER 2019-09-09 14:51 | Emergency (ER) | payer MEDICAID ==
[2019-09-09] MEDS ORDERED: IPRATROPIUM/ALBUTEROL 0.5-2.5 MG/3 ML AMPUL NEB ONE (15:03)
--- NOTE | 2019-09-09 15:05 | ER Document Report ---
ED Medical Screen (RME) - General Chief Complaint: Cough Stated Complaint: COUGHING BLOOD Time Seen by Provider: 09/09/19 15:03 Primary Care Provider: RENETTA MACK MD [Primary Care Provider] - Follow up as needed Information source: Patient Notes: Patient presents complaining of cough with fever for the past 5 days. Patient states that cough is been productive. Patient states that she had blood in her sputum and developed a nosebleed this afternoon which prompted her visit today. Patient just returned yesterday after cruising in the [place] for the past 12 days. Patient denies any other abnormal bleeding or bruising. I have greeted and performed a rapid initial assessment of this patient. A comprehensive ED assessment and evaluation of the patient, analysis of test results and completion of the medical decision making process will be conducted by additional ED providers. TRAVEL OUTSIDE OF THE [place] IN LAST 30 DAYS: No - Related Data Allergies/Adverse Reactions: erythromycin ethylsuccinate [From Pediazole] Allergy (Unknown, Verified 09/09/19 14:59) sulfisoxazole acetyl [From Pediazole] Allergy (Unknown, Verified 09/09/19 14:59) bee pollen [Bee Pollen] Allergy (Verified 09/09/19 14:59) ceftriaxone sodium [From Rocephin] Allergy (Verified 09/09/19 14:59) THROAT SWELLING doxycycline [Doxycycline] Allergy (Verified 09/09/19 14:59) Hives, thoat closes Penicillins Allergy (Verified 09/09/19 14:59) codeine [Codeine] Adverse Reaction (Verified 09/09/19 14:59) HYPERACTIVE metoclopramide HCl [From Reglan] Adverse Reaction (Verified 09/09/19 14:59) "MAKES ME FEEL CRAZY" prochlorperazine maleate [From Compazine] Adverse Reaction (Verified 09/09/19 14:59) "MAKES ME CRAZY" promethazine HCl [From Phenergan] Adverse Reaction (Verified 09/09/19 14:59) Nausea Past Medical History - Social History Family history: None - Past Medical History Cardiac Medical History: Reports: Hx Hypercholesterolemia - NO MEDS, TRYING TO CONTROL WITH DIET, Hx Hypertension - No meds Denies: Hx Coronary Artery Disease, Hx Heart Attack Pulmonary Medical History: Reports: Hx Asthma, Hx Pneumonia - 2011 "walking" Denies: Hx Bronchitis, Hx COPD Neurological Medical History: Reports: Hx Migraine. Denies: Hx Cerebrovascular Accident, Hx Seizures Endocrine Medical History: Reports: Hx Diabetes Mellitus Type 2 - BORDERLINE-NO MEDS, Hx Hypothyroidism Renal/ Medical History: Reports: Hx Kidney Stones, Hx Ovarian Cysts. Denies: Hx Peritoneal Dialysis GI Medical History: Reports: Hx Gastroesophageal Reflux Disease, Hx Irritable Bowel, Hx Colonoscopy, Hx Endoscopy Musculoskeltal Medical History: Reports Hx Arthritis - Shailesh Carpal Tunnel Syndrome, Reports Hx Musculoskeletal Deformity, Reports Hx Musculoskeletal Trauma Skin Medical History: Reports Hx MRSA Psychiatric Medical History: Reports: Hx Anxiety, Hx Bipolar Disorder, Hx Depression Traumatic Medical History: Reports: Hx Fractures - left arm fingers and toes Infectious Medical History: Reports: Hx MRSA Past Surgical History: Reports: Hx Abdominal Surgery - ovarian cyst, Hx Appendectomy, Hx Hysterectomy, Hx Thyroid Surgery, Hx Tubal Ligation - Immunizations Immunizations up to date: Yes Hx Diphtheria, Pertussis, Tetanus Vaccination: Yes - 2012 Physical Exam - Vital signs Vitals: Temp Pulse Resp BP Pulse Ox 98.1 F 78 18 138/75 H 96 09/09/19 14:55 09/09/19 14:55 09/09/19 14:55 09/09/19 14:55 09/09/19 14:55 - Respiratory Respiratory status: No respiratory distress Breath sounds: Nonproductive cough, Rhonchi Course - Vital Signs Vital signs: Temp Pulse Resp BP Pulse Ox 98.1 F 78 18 138/75 H 96 09/09/19 14:55 09/09/19 14:55 09/09/19 14:55 09/09/19 14:55 09/09/19 14:55 Doctor's Discharge - Discharge Referrals: RENETTA MACK MD [Primary Care Provider] - Follow up as needed
--- NOTE | 2019-09-09 15:26 | RADIOLOGY REPORT (SQ) ---
EXAM DESCRIPTION: CHEST 2 VIEWS COMPLETED DATE/TIME: 09/09/2019 3:18 pm REASON FOR STUDY: cough, fever COMPARISON: 12/10/2017 EXAM PARAMETERS: NUMBER OF VIEWS: two views TECHNIQUE: Digital Frontal and Lateral radiographic views of the chest acquired. RADIATION DOSE: NA LIMITATIONS: none FINDINGS: LUNGS AND PLEURA: No opacities, masses or pneumothorax. No pleural effusion. MEDIASTINUM AND HILAR STRUCTURES: No masses or contour abnormalities. HEART AND VASCULAR STRUCTURES: Heart normal size. No evidence for failure. BONES: No acute findings. HARDWARE: None in the chest. OTHER: No other significant finding. IMPRESSION: NO ACUTE RADIOGRAPHIC FINDING IN THE CHEST. TECHNICAL DOCUMENTATION: JOB ID: [id number] [employer]- All Rights Reserved Reading location - IP/workstation name: [email or web address]
[2019-09-09] MEDS ORDERED: PREDNISONE 20 MG TABLET PO ONE (15:58)
--- NOTE | 2019-09-09 16:04 | ER Document Report ---
ED Respiratory Problem - General Chief Complaint: Cough Stated Complaint: COUGHING BLOOD Time Seen by Provider: 09/09/19 15:03 Primary Care Provider: RENETTA MACK MD [Primary Care Provider] - Follow up as needed Notes: HPI: 39-year-old female that presents today with the onset 5 days ago runny nose, congestion, followed by intermittent fevers and cough. She has history of asthma with some wheezing. She denies any chest pain, calf pain, leg swelling. She did recently go to the [facility] on a cruise. She did not take any flights. Minimal driving to [place]. She did cough up some phlegm that was bl ood-tinged today. Continued runny nose. Some epistaxis from the left nostril that was transient. ROS: See HPI All other review of systems reviewed and otherwise negative Reviewed vital signs and nursing note as charted by RN. PHYSICAL EXAM: CONSTITUTIONAL: Alert and oriented and responds appropriately to questions. Well-appearing; well-nourished HEAD: Normocephalic; atraumatic EYES: PERRL; sclerae non-icteric ENT: Normal nose; bilateral nonpurulent nasal rhinorrhea; no facial swelling or erythema. Dried blood in the left nostril with some anterior excoriations with no septal hematoma. No posterior pharyngeal lesions or bleeding NECK: Supple without meningismus; non-tender; no cervical lymphadenopathy, no masses CARD: Regular rate and rhythm; no murmurs; symmetric distal pulses RESP: Normal chest excursion without splinting or tachypnea; breath sounds clear and equal bilaterally with some scattered wheezing without rhonchi or rales ABD/GI: Normal bowel sounds; non-distended; soft, non-tender BACK: The back appears normal and is non-tender to palpation EXT: Normal ROM in all joints; non-tender to palpation; no edema SKIN: No acute lesions noted NEURO: CN 2-12 intact; 5/5 bilateral upper and lower extremity strength with sensation intact to light touch PSYCH: The patient's mood and manner are appropriate. Grooming and personal hygiene are appropriate. TRAVEL OUTSIDE OF THE [place] IN LAST 30 DAYS: No - Related Data Allergies/Adverse Reactions: erythromycin ethylsuccinate [From Pediazole] Allergy (Unknown, Verified 09/09/19 14:59) sulfisoxazole acetyl [From Pediazole] Allergy (Unknown, Verified 09/09/19 14:59) bee pollen [Bee Pollen] Allergy (Verified 09/09/19 14:59) ceftriaxone sodium [From Rocephin] Allergy (Verified 09/09/19 14:59) THROAT SWELLING doxycycline [Doxycycline] Allergy (Verified 09/09/19 14:59) Hives, thoat closes Penicillins Allergy (Verified 09/09/19 14:59) codeine [Codeine] Adverse Reaction (Verified 09/09/19 14:59) HYPERACTIVE metoclopramide HCl [From Reglan] Adverse Reaction (Verified 09/09/19 14:59) "MAKES ME FEEL CRAZY" prochlorperazine maleate [From Compazine] Adverse Reaction (Verified 09/09/19 14:59) "MAKES ME CRAZY" promethazine HCl [From Phenergan] Adverse Reaction (Verified 09/09/19 14:59) Nausea Past Medical History - General Information source: Patient - Social History Smoking Status: Former Smoker Family History: Reviewed & Not Pertinent, Other - Adopted Patient has suicidal ideation: No Patient has homicidal ideation: No - Past Medical History Cardiac Medical History: Reports: Hx Hypercholesterolemia - NO MEDS, TRYING TO CONTROL WITH DIET, Hx Hypertension - No meds Denies: Hx Coronary Artery Disease, Hx Heart Attack Pulmonary Medical History: Reports: Hx Asthma, Hx Pneumonia - 2011 "walking" Denies: Hx Bronchitis, Hx COPD Neurological Medical History: Reports: Hx Migraine. Denies: Hx Cerebrovascular Accident, Hx Seizures Endocrine Medical History: Reports: Hx Diabetes Mellitus Type 2 - BORDERLINE-NO MEDS, Hx Hypothyroidism Renal/ Medical History: Reports: Hx Kidney Stones, Hx Ovarian Cysts. Denies: Hx Peritoneal Dialysis GI Medical History: Reports: Hx Gastroesophageal Reflux Disease, Hx Irritable Bowel, Hx Colonoscopy, Hx Endoscopy Musculoskeletal Medical History: Reports Hx Arthritis - Shailesh Carpal Tunnel Syndrome, Reports Hx Musculoskeletal Deformity, Reports Hx Musculoskeletal Trauma Skin Medical History: Reports Hx MRSA Psychiatric Medical History: Reports: Hx Anxiety, Hx Bipolar Disorder, Hx Depression Traumatic Medical History: Reports: Hx Fractures - left arm fingers and toes Infectious Medical History: Reports: Hx MRSA Past Surgical History: Reports: Hx Abdominal Surgery - ovarian cyst, Hx Appendectomy, Hx Hysterectomy, Hx Thyroid Surgery, Hx Tubal Ligation - Immunizations Immunizations up to date: Yes Hx Diphtheria, Pertussis, Tetanus Vaccination: Yes - 2012 Physical Exam - Vital signs Vitals: Temp Pulse Resp BP Pulse Ox 98.1 F 78 18 138/75 H 96 09/09/19 14:55 09/09/19 14:55 09/09/19 14:55 09/09/19 14:55 09/09/19 14:55 Course - Re-evaluation Re-evalutation: Given the history and physical, wheezing, past medical history as recorded, copious rhinorrhea, I do believe ACS, PE, or dissection to be extraordinarily unlikely. We will obtain an x-ray of the chest, and provide steroids and a breathing treatment. Patient states the last time she was admitted for asthma was when she was a child and she has never been intubated. She is on no anticoagulants. 09/09/19 16:06 No return of bleeding. Patient is smiling in no acute distress. Vital signs stable. We will discharge the patient home with an albuterol inhaler, 4 days of steroids, nebulizer solution, with strict return precautions. I do not believe any other imaging or laboratory work is necessary at this moment. - Vital Signs Vital signs: Temp Pulse Resp BP Pulse Ox 98.1 F 78 18 138/75 H 96 09/09/19 14:55 09/09/19 14:55 09/09/19 14:55 09/09/19 14:55 09/09/19 14:55 Discharge - Discharge Clinical Impression: Nasal congestion, Cough, Bloody sputum Condition: Good Disposition: HOME, SELF-CARE Additional Instructions: Come back immediately with any worsening cough, increased blood in the sputum, fevers, vomiting, chest pain, calf pain or leg swelling, difficulty breathing or swallowing, or any other acute problems. Please take 2 puffs of the albuterol inhaler every 4 hours for the next 48 hours then every 6 hours as needed after that. Please complete the course of steroids and follow-up with the primary care physician. Prescriptions: Prednisone [Deltasone 20 mg Tablet] 3 tab PO DAILY 4 Days #12 tablet Albuterol Sulfate [Ventolin 0.083% Neb 2.5 mg/3 mL Ampul] 1 vial NEB Q4 30 Days Referrals: RENETTA MACK MD [Primary Care Provider] - Follow up as needed
[2019-09-09] MEDS ORDERED: ALBUTEROL SULFATE HFA (90 MCG/PUFF) 8 GM MDI (1 MDI/ER DISP) IH ONE (16:12)
[2019-09-09 16:59] VITALS: BP 130/72
== END 2019-09-09 16:59 | disposition home or self-care (01) ==
LOC: ER 14:51
DX: R04.2 Hemoptysis (principal); J34.89 Other specified disorders of nose and nasal sinuses; E78.00 Pure hypercholesterolemia, unspecified; R73.03 Prediabetes; E03.9 Hypothyroidism, unspecified; Z86.14 Personal history of Methicillin resistant Staphylococcus aureus infection; Z90.710 Acquired absence of both cervix and uterus; Z88.3 Allergy status to other anti-infective agents; Z88.0 Allergy status to penicillin; Z88.6 Allergy status to analgesic agent
CPT/HCPCS: 87205; 71046; J7512; J3490; J7620; 94640; 99283

== ENCOUNTER 2020-03-31 20:47 | Emergency (ER) | payer MEDICAID ==
[2020-03-31] MEDS ORDERED: ONDANSETRON HCL INJ/PF 4 MG/2 ML SDV IV ONE (21:12)
[2020-03-31] MEDS ORDERED: RINGERS SOLUTION,LACTATED 1,000 ML IV ONE (21:13)
[2020-03-31] MEDS ORDERED: KETOROLAC TROMETHAMINE INJ/PF 30 MG/1 ML SDV IV ONE (21:13)
--- NOTE | 2020-03-31 21:16 | ER Document Report ---
ED Medical Screen (RME) - General Chief Complaint: Vertigo Stated Complaint: LIGHT HEADED,DIZZINESS,LEFT ANKLE,SHOOTING PAIN Time Seen by Provider: 03/31/20 21:04 Primary Care Provider: RENETTA MACK MD [Primary Care Provider] - Follow up as needed Mode of Arrival: Ambulatory Information source: Patient Notes: HPI; 40-year-old female past medical history who states she has a cyst on her thoracic spine. Surgery have been delayed due to COVID-19. Out of medications. States that she has been having dizziness, headaches, blurry vision, left ankle swelling and pain for the past 2 months. Has gotten progressively worse over the past 3 days. Has been taking ibuprofen and Tylenol along with a topical anesthetic cream without relief. Drove self to the emergency room. Also complaining of vaginal discharge for the past 2 days. Recently found out that her boyfriend has been unfaithful. PE: Alert and oriented x3, mild distress noted. Pupils equal reactive to light and accommodation. No nystagmus noted. Lungs are clear to auscultation without rales, rhonchi, or wheezes. Heart: Regular rate rhythm without murmurs, rubs, gallops. Neurovascular intact. I have greeted and performed a rapid initial assessment of this patient. A comprehensive ED assessment and evaluation of the patient, analysis of test results and completion of the medical decision making process will be conducted by additional ED providers. I have specifically instructed the patient or family members with the patient to immediately return to any nursing staff should anything change in the patient's condition or with their chief complaint. TRAVEL OUTSIDE OF THE [place] IN LAST 30 DAYS: No - Related Data Allergies/Adverse Reactions: erythromycin ethylsuccinate [From Pediazole] Allergy (Unknown, Verified 09/09/19 14:59) sulfisoxazole acetyl [From Pediazole] Allergy (Unknown, Verified 09/09/19 14:59) amoxicillin Allergy (Verified 03/31/20 21:12) bee pollen [Bee Pollen] Allergy (Verified 09/09/19 14:59) ceftriaxone sodium [From Rocephin] Allergy (Verified 09/09/19 14:59) THROAT SWELLING doxycycline [Doxycycline] Allergy (Verified 09/09/19 14:59) Hives, thoat closes Penicillins Allergy (Verified 09/09/19 14:59) codeine [Codeine] Adverse Reaction (Verified 09/09/19 14:59) HYPERACTIVE metoclopramide HCl [From Reglan] Adverse Reaction (Verified 09/09/19 14:59) "MAKES ME FEEL CRAZY" prochlorperazine maleate [From Compazine] Adverse Reaction (Verified 09/09/19 14:59) "MAKES ME CRAZY" promethazine HCl [From Phenergan] Adverse Reaction (Verified 09/09/19 14:59) Nausea Home Medications: adderall, xanax, clonidine, diclofenac, ambien, lidocaine- prilocaine Past Medical History - Social History Chew tobacco use (# tins/day): No Frequency of alcohol use: Rare Drug Abuse: None Family history: None - Past Medical History Cardiac Medical History: Reports: Hx Hypercholesterolemia - NO MEDS, TRYING TO CONTROL WITH DIET, Hx Hypertension - No meds Denies: Hx Coronary Artery Disease, Hx Heart Attack Pulmonary Medical History: Reports: Hx Asthma, Hx Pneumonia - 2011 "walking" Denies: Hx Bronchitis, Hx COPD Neurological Medical History: Reports: Hx Migraine. Denies: Hx Cerebrovascular Accident, Hx Seizures Endocrine Medical History: Reports: Hx Diabetes Mellitus Type 2 - BORDERLINE-NO MEDS, Hx Hypothyroidism Renal/ Medical History: Reports: Hx Kidney Stones, Hx Ovarian Cysts. Denies: Hx Peritoneal Dialysis GI Medical History: Reports: Hx Gastroesophageal Reflux Disease, Hx Irritable Bowel, Hx Colonoscopy, Hx Endoscopy Musculoskeltal Medical History: Reports Hx Arthritis - Shailesh Carpal Tunnel Syndrome, Reports Hx Musculoskeletal Deformity, Reports Hx Musculoskeletal Trauma Skin Medical History: Reports Hx MRSA Psychiatric Medical History: Reports: Hx Anxiety, Hx Bipolar Disorder, Hx Depression Traumatic Medical History: Reports: Hx Fractures - left arm fingers and toes Infectious Medical History: Reports: Hx MRSA Past Surgical History: Reports: Hx Abdominal Surgery - ovarian cyst, Hx Ap pendectomy, Hx Hysterectomy, Hx Thyroid Surgery, Hx Tubal Ligation - Immunizations Immunizations up to date: Yes Hx Diphtheria, Pertussis, Tetanus Vaccination: Yes - 2012 Physical Exam - Vital signs Vitals: Temp Pulse Resp BP Pulse Ox 98.2 F 92 18 152/85 H 96 03/31/20 20:53 03/31/20 20:53 03/31/20 20:53 03/31/20 20:53 03/31/20 20:53 Course - Vital Signs Vital signs: Temp Pulse Resp BP Pulse Ox 98.2 F 92 18 152/85 H 96 03/31/20 21:05 03/31/20 20:53 03/31/20 20:53 03/31/20 20:53 03/31/20 20:53 Doctor's Discharge - Discharge Referrals: RENETTA MACK MD [Primary Care Provider] - Follow up as needed
[2020-03-31 21:46] LABS: ABSOLUTE BASOPHILS # (AUTO) 0.1 10^3/uL (0.0-0.2); ABSOLUTE EOSINOPHILS # (AUTO) 0.3 10^3/uL (0.0-0.6); ABSOLUTE LYMPHOCYTES (AUTO) 2.4 10^3/uL (0.5-4.7); ABSOLUTE MONOCYTES (AUTO) 0.5 10^3/uL (0.1-1.4); ABSOLUTE NEUT (AUTO) 6.2 10^3/uL (1.7-8.2); BASOPHILS % (AUTO) 0.7 % (0-2); EOSINOPHILS % (AUTO) 2.7 % (0-6); HEMATOCRIT 44.5 % (36.0-47.0); HEMOGLOBIN 15.6 g/dL (12.0-15.5); LYMPHOCYTES % (AUTO) 25.7 % (13-45); MEAN CORPUSCULAR HEMOGLOBIN 29.8 pg (27.0-33.4); MEAN CORPUSCULAR HGB CONC 35.2 g/dL (32.0-36.0); MEAN CORPUSCULAR VOLUME 85 fl (80-97); MONOCYTES % (AUTO) 5.2 % (3-13); PLATELET COUNT 191 10^3/uL (150-450); RED BLOOD COUNT 5.24 10^6/uL (3.72-5.28); RED CELL DISTRIBUTION WIDTH 13.1 % (11.5-14.0); SEGMENTED NEUTROPHILS % (AUTO) 65.7 % (42-78); TOTAL CELLS COUNTED % (AUTO) 100 %; WHITE BLOOD COUNT 9.5 10^3/uL (4.0-10.5)
[2020-03-31 21:49] LABS: APPEARANCE,URINE SLIGHTLY-CLOUDY; BILIRUBIN,URINE NEGATIVE (NEGATIVE); COLOR,URINE YELLOW; GLUCOSE, URINE NEGATIVE (NEGATIVE); KETONES,URINE TRACE mg/dL (NEGATIVE); LEUKOCYTE ESTERASE,URINE LARGE (NEGATIVE); NITRITE,URINE NEGATIVE (NEGATIVE); PROTEIN,URINE NEGATIVE (NEGATIVE); URINE SPECIFIC GRAVITY 1.024; UROBILINOGEN,URINE NEGATIVE mg/dL (<2.0)
[2020-03-31 22:26] LABS: ALBUMIN 4.5 g/dL (3.5-5.0); ALKALINE PHOSPHATASE 63 U/L (38-126); ANION GAP 7 (5-19); ASPARTATE AMINO TRANSFERASE 25 U/L (14-36); BILIRUBIN,TOTAL 0.3 mg/dL (0.2-1.3); BLOOD UREA NITROGEN 19 mg/dL (7-20); CALCIUM 9.9 mg/dL (8.4-10.2); CARBON DIOXIDE 27 mmol/L (22-30); CHLORIDE 103 mmol/L (98-107); GLUCOSE 129 mg/dL (75-110); POTASSIUM 3.8 mmol/L (3.6-5.0); TOTAL PROTEIN 7.6 g/dL (6.3-8.2)
--- NOTE | 2020-03-31 23:00 | ER Document Report ---
ED GI/ - General Chief Complaint: Vaginal Discharge Stated Complaint: LIGHT HEADED,DIZZINESS,LEFT ANKLE,SHOOTING PAIN Time Seen by Provider: 03/31/20 21:04 Primary Care Provider: RENETTA MACK MD [Primary Care Provider] - Follow up as needed Mode of Arrival: Ambulatory Information source: Patient Notes: 40-year-old female presented to ED for complaint of cyst on her thoracic spine and surgery has been delayed due to the COVID 19 pandemic. She states she is ou t of her medications for this pain. She states she is also having dizziness headache blurry vision and ankle swelling that has been going on for 2 to 7 months she is not sure exactly how long but is gotten progressively worse over the last 3 days. He states she has been taking ibuprofen and Tylenol because she was out of her medications along with her topical cream that she gets prescribed but she is not having there is any relief. She states she drove herself to the emergency room. She states the only new problem she is having today is vaginal discharge for the past 2 days. She states she recently found out that her long-term boyfriend has been sleeping with 6 other people so she would like this discharged assessed. Patient is alert oriented respirations regular nonlabored speaking in full sentences pupils equal and react to light. There is no nystagmus noted. Patient is able to walk with a even steady gait. TRAVEL OUTSIDE OF THE [place] IN LAST 30 DAYS: No - HPI Patient complains to provider of: Vaginal discharge, Other - Patient has multiple chronic problems with increasing pain to her back the only new problem is the vaginal discharge and vaginal pain Onset: Other - Vaginal discharge is been for the past 2 days most of the other problems have been for anywhere from 2 to 7 months Timing/Duration: Gradual, Persistent Quality of pain: Sharp - Back pain is sharp and it is worse and she is not able to get her medications Severity at maximum: Moderate Severity in ED: Moderate Pain Level: 3 Location: Vaginal, Other - Chronic back neck and head pain Vaginal bleeding (Compared to normal period): None Associated symptoms: Vaginal discharge Exacerbated by: Walking Relieved by: Remaining still Similar symptoms previously: Yes Recently seen / treated by doctor: No - Related Data Allergies/Adverse Reactions: erythromycin ethylsuccinate [From Pediazole] Allergy (Unknown, Verified 09/09/19 14:59) sulfisoxazole acetyl [From Pediazole] Allergy (Unknown, Verified 09/09/19 14:59) amoxicillin Allergy (Verified 03/31/20 21:12) bee pollen [Bee Pollen] Allergy (Verified 09/09/19 14:59) ceftriaxone sodium [From Rocephin] Allergy (Verified 09/09/19 14:59) THROAT SWELLING doxycycline [Doxycycline] Allergy (Verified 09/09/19 14:59) Hives, thoat closes Penicillins Allergy (Verified 09/09/19 14:59) codeine [Codeine] Adverse Reaction (Verified 09/09/19 14:59) HYPERACTIVE metoclopramide HCl [From Reglan] Adverse Reaction (Verified 09/09/19 14:59) "MAKES ME FEEL CRAZY" prochlorperazine maleate [From Compazine] Adverse Reaction (Verified 09/09/19 14:59) "MAKES ME CRAZY" promethazine HCl [From Phenergan] Adverse Reaction (Verified 09/09/19 14:59) Nausea Home Medications: adderall, xanax, clonidine, diclofenac, ambien, lidocaine- prilocaine Past Medical History - General Information source: Patient - Social History Smoking Status: Current Every Day Smoker Cigarette use (# per day): Yes - Half pack a day Chew tobacco use (# tins/day): No Smoking Education Provided: Yes - 4 minutes Frequency of alcohol use: Rare Drug Abuse: None Lives with: Alone - Children Family History: Reviewed & Not Pertinent, Other - Adopted Patient has homicidal ideation: No - Past Medical History Cardiac Medical History: Reports: Hx Hypercholesterolemia - NO MEDS, TRYING TO C ONTROL WITH DIET, Hx Hypertension - No meds Pulmonary Medical History: Reports: Hx Asthma, Hx Pneumonia - 2011 "walking" EENT Medical History: Reports: None Neurological Medical History: Reports: Hx Migraine Endocrine Medical History: Reports: Hx Diabetes Mellitus Type 2 - BORDERLINE-NO MEDS, Hx Hypothyroidism Renal/ Medical History: Reports: Hx Kidney Stones, Hx Ovarian Cysts Malignancy Medical History: Reports: None GI Medical History: Reports: Hx Gastroesophageal Reflux Disease, Hx Irritable Bowel, Hx Colonoscopy, Hx Endoscopy Musculoskeletal Medical History: Reports Hx Arthritis - Shailesh Carpal Tunnel Syndrome, Reports Hx Musculoskeletal Deformity, Reports Hx Musculoskeletal Trauma Skin Medical History: Reports Hx MRSA Psychiatric Medical History: Reports: Hx Anxiety, Hx Bipolar Disorder, Hx Depression Traumatic Medical History: Reports: Hx Fractures - left arm fingers and toes Infectious Medical History: Reports: Hx MRSA Past Surgical History: Reports: Hx Abdominal Surgery - ovarian cyst, Hx Appendectomy, Hx Hysterectomy, Hx Orthopedic Surgery - Carpal tunnel, cervical fusion, Hx Thyroid Surgery - Thyroid biopsies, Hx Tubal Ligation - Immunizations Immunizations up to date: Yes Hx Diphtheria, Pertussis, Tetanus Vaccination: Yes - 2012 Review of Systems - Review of Systems Constitutional: No symptoms reported EENT: No symptoms reported, Blurred vision - This is chronic Cardiovascular: Dizziness - Chronic Respiratory: No symptoms reported Gastrointestinal: No symptoms reported Genitourinary: No symptoms reported Female Genitourinary: Vaginal discharge, Vaginal odor Musculoskeletal: Back pain - Chronic, Muscle pain - Chronic, Ankle swelling - Chronic Skin: No symptoms reported Hematologic/Lymphatic: No symptoms reported Neurological/Psychological: Headaches - Chronic -: Yes All other systems reviewed and negative Physical Exam - Vital signs Vitals: Temp Pulse Resp BP Pulse Ox 98.2 F 92 18 152/85 H 96 03/31/20 20:53 03/31/20 20:53 03/31/20 20:53 03/31/20 20:53 03/31/20 20:53 Interpretation: Normal - General General appearance: Appears well, Alert - HEENT Head: Normocephalic, Atraumatic Eyes: Normal Pupils: PERRL - Respiratory Respiratory status: No respiratory distress Chest status: Nontender Breath sounds: Normal Chest palpation: Normal - Cardiovascular Rhythm: Regular Heart sounds: Normal auscultation Murmur: No - Abdominal Inspection: Normal Distension: No distension Bowel sounds: Normal Tenderness: Nontender Organomegaly: No organomegaly - Genitourinary External exam: Normal. No: Lesions Speculum exam: Vaginal discharge Vaginal bleeding: None - Back Back: Normal, Tender, Scars. No: Deformity/step-off - Extremities General upper extremity: Normal color, Normal ROM, Normal temperature General lower extremity: Normal color, Normal ROM, Normal temperature, Normal weight bearing. No: Ari's sign Ankle: Edema Foot: Edema - Neurological Neuro grossly intact: Yes Cognition: Normal Orientation: AAOx4 Imani Coma Scale Eye Opening: Spontaneous Imani Coma Scale Verbal: Oriented [place]key Coma Scale Motor: Obeys Commands Commiskey Coma Scale Total: 15 Speech: Normal Motor strength normal: LUE, RUE, LLE, RLE Sensory: Normal - Psychological Associated symptoms: Normal affect, Normal mood - Skin Skin Temperature: Warm Skin Moisture: Dry Skin Color: Normal Course - Re-evaluation Re-evalutation: 03/31/20 23:50 Wet mount came back positive for bacterial vaginosis and budding yeast. She has been treated with Flagyl and Diflucan. The gonorrhea and chlamydia will not come back for a while. She has been told that the culture line will call her if anything comes back positive and she will be treated at that time. She has too many allergies to just prophylactically treat her. Other labs have been discussed with patient and written report of labs given to patient to follow-up with her primary care doctor. There were no other significant abnormalities at this time. Patient also called me back into the room after her examination is stated that her boyfriend called her and told her that he was positive for herpes. I did examine and there is no signs or symptoms of any herpes in her vaginal area. He states she was not having any painful sore but she was freaking out because he had called her and told her that. - Vital Signs Vital signs: Temp Pulse Resp BP Pulse Ox 98.2 F 92 18 152/85 H 96 03/31/20 21:05 03/31/20 20:53 03/31/20 20:53 03/31/20 20:53 03/31/20 20:53 - Laboratory Result Diagrams: 03/31/20 21:25 03/31/20 21:25 Laboratory results interpreted by me: 03/31/20 03/31/20 03/31/20 21:25 21:25 21:25 Hgb 15.6 H Sodium 136.9 L Glucose 129 H Urine Ketones TRACE H Ur Leukocyte Esterase LARGE H Discharge - Discharge Clinical Impression: Bacterial vaginosis, Vaginal yeast infection Condition: Stable Disposition: HOME, SELF-CARE Additional Instructions: VAGINOSIS, BACTERIAL: Your exam shows you have bacterial vaginosis. This condition is due to an overgrowth of bacteria in the vagina. Symptoms may include vaginal itching or pain, a smelly discharge, and sometimes burning with urination. Normally this is not transmitted by sexual contact. Vaginosis can be treated with oral or topical antibiotics. Metronidazole (Flagyl) pills are usually effective. Topical vaginal creams include Cleocin and Metro-Gel. You should avoid sexual contact until your symptoms are all better. Call the doctor if you develop pelvic pain, fever, or problems with urination, or if you don't improve as expected. VAGINAL YEAST INFECTION: You have evidence of a yeast infection -- called "myriam." A vaginal yeast infection often causes itching and discharge. While not dangerous, it can be very unpleasant. A yeast infection often follows the use of powerful antibiotics. It is more likely to occur in diabetics. The treatment now is usually a single pill of Diflucan, but also an antifungal cream or suppository may be used for a few days. You do not need to avoid sexual intercourse. Recurrences are common. You can make a recurrence less likely by wearing cotton underwear and avoiding tight clothing. For mild recurrences, you can try cwwf-puc-redgdow creams or suppositories that are made specifically for yeast. If the symptoms do not resolve, you should follow up for re-examination. Sometimes treatment of the sexual partner is necessary if infections are recurrent. METRONIDAZOLE: Metronidazole (Flagyl) has been prescribed. This medication is used to kill a type of bacteria called anaerobes, and protozoan parasites such as trichomonas and Giardia. Flagyl often causes a metallic taste in the mouth and mild nausea. Do not use alcohol in any form with Flagyl (including alcohol in medication elixirs). Flagyl interacts with alcohol to cause flushing, palpitations, headache, stomach cramps, and vomiting. Do not use Flagyl if you are taking Antabuse (disulfiram). Call the doctor at once if you develop rash, shortness of breath, itching, or lightheadedness. FLUCONAZOLE: Fluconazole (Diflucan) is an antifungal drug. It is useful for serious fungal infections, but is also excellent for oral or vaginal yeast infections. Diflucan interacts with some medicines. This is a concern if you are taking anticoagulants (such as Coumadin), phenytoin (Dilantin), cyclosporin, or oral hypoglycemics (such as tolbutamide, Orinase, glipizide, Glucotrol, glyburide, DiaBeta, Glynase, and Micronase). Be sure the doctor knows if you are taking one of these medicines. We don't know how Diflucan affects . If you are planning to become , discuss this with your doctor. Diflucan has few side effects. Minor side effects may include nausea, headache, or diarrhea. Call the doctor if you develop a skin rash, shortness of breath, or other new symptoms. Oral Narcotic Medication You have been given a Godley dispense pack for pain control. This medication is a narcotic. It's best taken with food, as nausea can result if taken on an empty stomach. Don't operate machinery or drive within six hours of taking this medication. Do not combine this medicine with alcohol, or with any medication which can cause sedation (such as cold tablets or sleeping pills) unless you get permission from the physician. Narcotics tend to cause constipation. If possible, drink plenty of fluids and eat a diet high in fiber and fruits. FOLLOW-UP CARE: If you have been referred to a physician for follow-up care, call the physicians office for an appointment as you were instructed or within the next two days. If you experience worsening or a significant change in your symptoms, notify the physician immediately or return to the Emergency Department at any time for re-evaluation. Prescriptions: Metronidazole [Flagyl 500 mg Tablet] 500 mg PO BID #14 tablet Forms: Elevated Blood Pressure Referrals: RENETTA MACK MD [Primary Care Provider] - Follow up in 3-5 days
[2020-03-31 23:06] LABS: BACTERIA (WET MOUNT) 4+ BACTERIA SEEN; EPITHELIALS (WET MOUNT) 4+ EPITHELIALS SEEN; T.VAGINALIS (WET MOUNT) NO TRICHOMONAS SEEN; WBCS (WET MOUNT) 2+ WBCS SEEN; YEAST (WET MOUNT) BUDDING YEAST SEEN
[2020-03-31] MEDS ORDERED: METRONIDAZOLE 500 MG TABLET PO ONE (23:41)
[2020-03-31] MEDS ORDERED: FLUCONAZOLE 100 MG TABLET PO ONE (23:42)
--- NOTE | 2020-03-31 23:42 | EKG REPORT ---
SEVERITY:- NORMAL ECG - SINUS RHYTHM : Confirmed by: Luzma Randall MD 31-Mar-2020 23:41:24
[2020-03-31] MEDS ORDERED: HYDROCODONE/ACETAMINOPHEN 5-325 MG (6 TAB/ER DISP) PO PRN (23:43)
[2020-04-01 00:16] VITALS: BP 112/78
[2020-04-01 00:33] LABS: CHLAM PCR NOT DETECTED (NOT DETECT)
== END 2020-04-01 00:15 | disposition home or self-care (01) ==
LOC: ER 20:47
DX: N76.0 Acute vaginitis (principal); B96.89 Other specified bacterial agents as the cause of diseases classified elsewhere; B37.3 Candidiasis of vulva and vagina; R42 Dizziness and giddiness; M25.572 Pain in left ankle and joints of left foot; F17.210 Nicotine dependence, cigarettes, uncomplicated; Z88.0 Allergy status to penicillin; Z88.3 Allergy status to other anti-infective agents; Z88.6 Allergy status to analgesic agent
CPT/HCPCS: 93005; 99406; 99283; 96361; 96374; 96375; 36415; 87086; 87210; 85025; 80053; 81001; 87491; 87591; 93010; J1885; J2405; J3490 ×2; J7120

== ENCOUNTER 2020-04-04 15:47 | Emergency (ER) | payer MEDICAID ==
--- NOTE | 2020-04-04 16:01 | ER Document Report ---
ED Medical Screen (RME) - General Chief Complaint: Dizziness Stated Complaint: DIZZINESS/HEADACHE Time Seen by Provider: 04/04/20 15:52 Primary Care Provider: RENETTA MACK MD [Primary Care Provider] - Follow up as needed Mode of Arrival: Ambulatory Information source: Patient Notes: 40-year-old female with history of chronic neck and shoulder pain, anxiety presents to the emergency department with complaints of dizziness and falling for the past 3 to 4 days. She reports she has fallen twice in the last couple days. Once she fell off the porch. The other day she fell when she was walking around her bed at night. Patient reports history of chronic neck and shoulder pain that radiates into her head. This is chronic, this is not new. Her new symptoms today are dizziness and falling. She also complained of some chest pain under her left breast but reports she experiences that when she has anxiety. She denies fever vomiting diarrhea. No known COVID exposure I have greeted and performed a rapid initial assessment of this patient. A comprehensive ED assessment and evaluation of the patient, analysis of test results and completion of the medical decision making process will be conducted by additional ED providers. TRAVEL OUTSIDE OF THE [place] IN LAST 30 DAYS: No - Related Data Allergies/Adverse Reactions: erythromycin ethylsuccinate [From Pediazole] Allergy (Unknown, Verified 09/09/19 14:59) sulfisoxazole acetyl [From Pediazole] Allergy (Unknown, Verified 09/09/19 14:59) amoxicillin Allergy (Verified 03/31/20 21:12) bee pollen [Bee Pollen] Allergy (Verified 09/09/19 14:59) ceftriaxone sodium [From Rocephin] Allergy (Verified 09/09/19 14:59) THROAT SWELLING doxycycline [Doxycycline] Allergy (Verified 09/09/19 14:59) Hives, thoat closes Penicillins Allergy (Verified 09/09/19 14:59) codeine [Codeine] Adverse Reaction (Verified 09/09/19 14:59) HYPERACTIVE metoclopramide HCl [From Reglan] Adverse Reaction (Verified 09/09/19 14:59) "MAKES ME FEEL CRAZY" prochlorperazine maleate [From Compazine] Adverse Reaction (Verified 09/09/19 14:59) "MAKES ME CRAZY" promethazine HCl [From Phenergan] Adverse Reaction (Verified 09/09/19 14:59) Nausea Past Medical History - Social History Family history: None - Past Medical History Cardiac Medical History: Reports: Hx Hypercholesterolemia - NO MEDS, TRYING TO CONTROL WITH DIET, Hx Hypertension - No meds Denies: Hx Coronary Artery Disease, Hx Heart Attack Pulmonary Medical History: Reports: Hx Asthma, Hx Pneumonia - 2011 "walking" Denies: Hx Bronchitis, Hx COPD Neurological Medical History: Reports: Hx Migraine. Denies: Hx Cerebrovascular Accident, Hx Seizures Endocrine Medical History: Reports: Hx Diabetes Mellitus Type 2 - BORDERLINE-NO MEDS, Hx Hypothyroidism Renal/ Medical History: Reports: Hx Kidney Stones, Hx Ovarian Cysts. Denies: Hx Peritoneal Dialysis GI Medical History: Reports: Hx Gastroesophageal Reflux Disease, Hx Irritable Bowel, Hx Colonoscopy, Hx Endoscopy Musculoskeltal Medical History: Reports Hx Arthritis - Shailesh Carpal Tunnel Syndrome, Reports Hx Musculoskeletal Deformity, Reports Hx Musculoskeletal Trauma Skin Medical History: Reports Hx MRSA Psychiatric Medical History: Reports: Hx Anxiety, Hx Bipolar Disorder, Hx Depression Traumatic Medical History: Reports: Hx Fractures - left arm fingers and toes Infectious Medical History: Reports: Hx MRSA Past Surgical History: Reports: Hx Abdominal Surgery - ovarian cyst, Hx Appendectomy, Hx Hysterectomy, Hx Orthopedic Surgery - Carpal tunnel, cervical fusion, Hx Thyroid Surgery - Thyroid biopsies, Hx Tubal Ligation - Immunizations Immunizations up to date: Yes Hx Diphtheria, Pertussis, Tetanus Vaccination: Yes - 2012 Physical Exam - Vital signs Vitals: Temp Pulse Resp BP Pulse Ox 98.6 F 79 14 141/78 H 96 04/04/20 15:51 04/04/20 15:51 04/04/20 15:51 04/04/20 15:51 04/04/20 15:51 Course - Vital Signs Vital signs: Temp Pulse Resp BP Pulse Ox 98.6 F 79 14 141/78 H 96 04/04/20 15:53 04/04/20 15:51 04/04/20 15:51 04/04/20 15:51 04/04/20 15:51 Doctor's Discharge - Discharge Referrals: RENETTA MACK MD [Primary Care Provider] - Follow up as needed
[2020-04-04 16:41] LABS: ABSOLUTE BASOPHILS # (AUTO) 0.1 10^3/uL (0.0-0.2); ABSOLUTE EOSINOPHILS # (AUTO) 0.3 10^3/uL (0.0-0.6); ABSOLUTE LYMPHOCYTES (AUTO) 1.7 10^3/uL (0.5-4.7); ABSOLUTE MONOCYTES (AUTO) 0.4 10^3/uL (0.1-1.4); ABSOLUTE NEUT (AUTO) 4.8 10^3/uL (1.7-8.2); BASOPHILS % (AUTO) 0.9 % (0-2); EOSINOPHILS % (AUTO) 4.3 % (0-6); HEMATOCRIT 46.3 % (36.0-47.0); HEMOGLOBIN 16.4 g/dL (12.0-15.5); LYMPHOCYTES % (AUTO) 23.8 % (13-45); MEAN CORPUSCULAR HEMOGLOBIN 30.1 pg (27.0-33.4); MEAN CORPUSCULAR HGB CONC 35.4 g/dL (32.0-36.0); MEAN CORPUSCULAR VOLUME 85 fl (80-97); PLATELET COUNT 208 10^3/uL (150-450); RED BLOOD COUNT 5.43 10^6/uL (3.72-5.28); RED CELL DISTRIBUTION WIDTH 12.7 % (11.5-14.0); TOTAL CELLS COUNTED % (AUTO) 100 %; WHITE BLOOD COUNT 7.3 10^3/uL (4.0-10.5)
[2020-04-04 16:41] LABS: AMORPHOUS SEDIMENT,URINE TRACE /HPF; APPEARANCE,URINE CLOUDY; BILIRUBIN,URINE NEGATIVE (NEGATIVE); COLOR,URINE YELLOW; GLUCOSE, URINE NEGATIVE (NEGATIVE); KETONES,URINE NEGATIVE (NEGATIVE); LEUKOCYTE ESTERASE,URINE LARGE (NEGATIVE); NITRITE,URINE NEGATIVE (NEGATIVE); PROTEIN,URINE 30 mg/dL (NEGATIVE); URINE SPECIFIC GRAVITY 1.018; UROBILINOGEN,URINE NEGATIVE mg/dL (<2.0)
[2020-04-04 16:53] LABS: URINE AMPHETAMINES SCREEN NEGATIVE; URINE BARBITURATES SCREEN NEGATIVE; URINE BENZODIAZEPINES SCREEN NEGATIVE; URINE COCAINE SCREEN NEGATIVE; URINE MARIJUANA (THC) SCREEN NEGATIVE; URINE METHADONE SCREEN NEGATIVE; URINE PHENCYCLIDINE SCREEN NEGATIVE
[2020-04-04 16:56] LABS: ALBUMIN 4.5 g/dL (3.5-5.0); ALKALINE PHOSPHATASE 59 U/L (38-126); ANION GAP 9 (5-19); ASPARTATE AMINO TRANSFERASE 36 U/L (14-36); BILIRUBIN,TOTAL 0.5 mg/dL (0.2-1.3); BLOOD UREA NITROGEN 15 mg/dL (7-20); CALCIUM 9.6 mg/dL (8.4-10.2); CARBON DIOXIDE 26 mmol/L (22-30); CHLORIDE 104 mmol/L (98-107); GLUCOSE 124 mg/dL (75-110); POTASSIUM 4.6 mmol/L (3.6-5.0); TOTAL PROTEIN 7.6 g/dL (6.3-8.2)
[2020-04-04] MEDS ORDERED: METOCLOPRAMIDE HCL INJ/PF 10 MG/2 ML SDV IV ONE (17:37)
[2020-04-04] MEDS ORDERED: DIPHENHYDRAMINE HCL 50 MG/ML VIAL IV ONE (17:38)
[2020-04-04] MEDS ORDERED: RINGERS SOLUTION,LACTATED 1,000 ML IV ONE (17:38)
--- NOTE | 2020-04-04 17:42 | ER Document Report ---
ED Dizziness/Weakness - General Chief Complaint: Dizziness Stated Complaint: DIZZINESS/HEADACHE Time Seen by Provider: 04/04/20 15:52 Primary Care Provider: RENETTA MACK MD [Primary Care Provider] - Follow up in 3-5 days Mode of Arrival: Ambulatory Notes: Patient is a 40-year-old female who presents to the chief complaint of dizziness and multiple falls. Patient states over the past 2 weeks she has fallen multiple times. States that the dizziness causes her to fall. Patient has a hi story of neuropathy with spinal fusions in the past. Patient has chronic back pain. Patient states that although she started the Flagyl 2 days ago, she has increased vaginal discharge instead of decreased vaginal discharge. She denies any itching and states the itching has improved. TRAVEL OUTSIDE OF THE [place] IN LAST 30 DAYS: No - Related Data Allergies/Adverse Reactions: erythromycin ethylsuccinate [From Pediazole] Allergy (Unknown, Verified 09/09/19 14:59) sulfisoxazole acetyl [From Pediazole] Allergy (Unknown, Verified 09/09/19 14:59) amoxicillin Allergy (Verified 03/31/20 21:12) bee pollen [Bee Pollen] Allergy (Verified 09/09/19 14:59) ceftriaxone sodium [From Rocephin] Allergy (Verified 09/09/19 14:59) THROAT SWELLING doxycycline [Doxycycline] Allergy (Verified 09/09/19 14:59) Hives, thoat closes Penicillins Allergy (Verified 09/09/19 14:59) codeine [Codeine] Adverse Reaction (Verified 09/09/19 14:59) HYPERACTIVE prochlorperazine maleate [From Compazine] Adverse Reaction (Verified 09/09/19 14:59) "MAKES ME CRAZY" promethazine HCl [From Phenergan] Adverse Reaction (Verified 09/09/19 14:59) Nausea Home Medications: Xanax PRN. Adderrall Past Medical History - General Information source: Patient - Social History Smoking Status: Current Every Day Smoker Frequency of alcohol use: Rare Drug Abuse: None Family History: Reviewed & Not Pertinent, Other - Adopted Patient has homicidal ideation: No - Past Medical History Cardiac Medical History: Reports: Hx Hypercholesterolemia - NO MEDS, TRYING TO CONTROL WITH DIET, Hx Hypertension - No meds Denies: Hx Coronary Artery Disease, Hx Heart Attack Pulmonary Medical History: Reports: Hx Asthma, Hx Pneumonia - 2011 "walking" Denies: Hx Bronchitis, Hx COPD Neurological Medical History: Reports: Hx Migraine. Denies: Hx Cerebrovascular Accident, Hx Seizures Endocrine Medical History: Reports: Hx Diabetes Mellitus Type 2 - BORDERLINE-NO MEDS, Hx Hypothyroidism Renal/ Medical History: Reports: Hx Kidney Stones, Hx Ovarian Cysts. Denies: Hx Peritoneal Dialysis GI Medical History: Reports: Hx Gastroesophageal Reflux Disease, Hx Irritable Bowel, Hx Colonoscopy, Hx Endoscopy Musculoskeletal Medical History: Reports Hx Arthritis - Shailesh Carpal Tunnel Syndrome, Reports Hx Musculoskeletal Deformity, Reports Hx Musculoskeletal Trauma Skin Medical History: Reports Hx MRSA Psychiatric Medical History: Reports: Hx Anxiety, Hx Bipolar Disorder, Hx Depression Traumatic Medical History: Reports: Hx Fractures - left arm fingers and toes Infectious Medical History: Reports: Hx MRSA Past Surgical History: Reports: Hx Abdominal Surgery - ovarian cyst, Hx Appendectomy, Hx Hysterectomy, Hx Orthopedic Surgery - Carpal tunnel, cervical fusion, Hx Thyroid Surgery - Thyroid biopsies, Hx Tubal Ligation - Immunizations Immunizations up to date: Yes Hx Diphtheria, Pertussis, Tetanus Vaccination: Yes - 2012 Review of Systems - Review of Systems Notes: REVIEW OF SYSTEMS: CONSTITUTIONAL : Denies recent illness. Denies recent unintentional weight loss. Denies fever, chills, or sweats. EENT: Denies eye, ear, throat, or mouth pain, discharge, or symptoms. Denies nasal or sinus congestion. CARDIOVASCULAR: Denies chest pain. RESPIRATORY: Denies shortness of breath, cough, congestion, difficulty breathing, or wheezing. GASTROINTESTINAL: Denies nausea, vomiting, and diarrhea. Denies abdominal pain. Denies constipation. GENITOURINARY: Denies difficulty urinating, burning, blood in urine, urgency or frequency. MUSCULOSKELETAL: Denies neck and back pain. Denies joint pain or swelling. SKIN: Denies rash, itchiness, or lesions HEMATOLOGIC : Denies easy bruising or bleeding. LYMPHATIC: Denies swollen, painful, enlarged glands. NEUROLOGICAL: Denies no numbness or tingling denies weakness. Denies headache. Denies altered mental status. Denies alteration in speech. PSYCHIATRIC: Denies stress, anxiety, alteration in sleep patterns, or depression. All other systems reviewed and negative. Physical Exam - Vital signs Vitals: Temp Pulse Resp BP Pulse Ox 98.6 F 79 14 141/78 H 96 04/04/20 15:51 04/04/20 15:51 04/04/20 15:51 04/04/20 15:51 04/04/20 15:51 - Notes Notes: PHYSICAL EXAMINATION: GENERAL: Appears well, healthy, well-nourished, no acute distress. HEAD: Normocephalic, atraumatic. EYES: PERRL, conjunctiva normal, all extraocular movements intact, sclera nonicteric ENT: Moist mucous membranes. NECK: Supple, no noticeable swelling, redness, rash. Normal range of motion. LUNGS: Equal breath sounds bilaterally and clear to auscultation. No wheezes rales or rhonchi. CARDIOVASCULAR: S1-S2, regular rate, regular rhythm. Radial pulses 2+, normal. ABDOMEN: Normoactive bowel sounds. Soft, nontender, no guarding, no rebound tenderness, and no masses palpated. EXTREMITIES: Normal strength and range of motion, no pitting or edema. No cyanosis. NEUROLOGICAL: Moves all extremities upon command. Strength 5/5 in all extremities. PSYCH: Normal mood, normal affect. SKIN: Warm, dry. No rash, lesions, ulcerations noted. Normal skin turgor. Course - Re-evaluation Re-evalutation: 04/04/20 17:42 Patient's hematology is unremarkable. Chemistries are also unremarkable. Urinalysis shows large amount of leukocytes in her urine, which she had before. She also now has protein in her urine. She did have ketones in her urine from the other day. Patient states that she has a headache and has had multiple falls. Patient will be sent for CT of the head to make sure there is no intracranial process causing her to fall. Discussed the risks and benefits of this. Patient is in agreement to have a CT of the head. 04/04/20 18:[address] to see why she has not been to CT yet. The mining engineering technologist told me that they are behind at this time. Patient is resting comfortably in her room. 04/04/20 19:57 Patient states that she feels better after receiving a migraine cocktail. CT of the head was unremarkable. No intracranial masses, bleed, or anything found at this time. Patient will follow-up with her primary care provider in regards to this visit. Urine culture showed lactobacillus in her urine. We will start her on Keflex. She was treated with Diflucan. Follow-up precautions were given. Verbal discharge instructions were given to the patient. They verbalized understanding. They are stable for discharge. - Vital Signs Vital signs: Temp Pulse Resp BP Pulse Ox 98.2 F 72 16 120/43 L 98 04/04/20 20:20 04/04/20 20:20 04/04/20 20:20 04/04/20 20:20 04/04/20 20:20 - Laboratory Result Diagrams: 04/04/20 16:22 04/04/20 16:22 Laboratory results interpreted by me: 04/04/20 04/04/20 04/04/20 16:08 16:22 16:22 RBC 5.43 H Hgb 16.4 H Glucose 124 H Urine Protein 30 H Ur Leukocyte Esterase LARGE H - EKG Interpretation by Me Additional EKG results interpreted by me: 04/04/20 17:41 Sinus rhythm. Rate 70. ME 152; QRS 90; QT 384; QTc 415. No ST elevations or depressions noted. Discharge - Discharge Clinical Impression: Dizziness Urinary tract infection Qualifiers: Urinary tract infection type: site unspecified Hematuria presence: without hematuria Qualified Code(s): N39.0 - Urinary tract infection, site not specified Condition: Stable Disposition: HOME, SELF-CARE Instructions: Vertigo ([facility]) Additional Instructions: Your urine shows findings consistent with a urinary tract infection. Please take all the antibiotics as directed even if your symptoms have improved. Please follow-up with your primary care physician as needed. Return to emergency room if you develop fever >101F, persistent vomiting, become le thargic, have severe pain in your sides, or any other symptoms that are concerning to you. Please stop taking your Flagyl. Take clindamycin. Follow-up with your primary care provider in regards to this visit. Take meclizine as needed for dizziness. Prescriptions: Meclizine HCl [Antivert 25 mg Tablet] 25 mg PO TIDP PRN #10 tablet PRN Reason: Clindamycin HCl [Cleocin 150 mg Capsule] 300 mg PO Q6 7 Days #56 capsule Referrals: RENETTA MACK MD [Primary Care Provider] - Follow up in 3-5 days
--- NOTE | 2020-04-04 18:49 | EKG REPORT ---
SEVERITY:- NORMAL ECG - SINUS RHYTHM : Confirmed by: Luzma Randall MD 04-Apr-2020 18:48:53
--- NOTE | 2020-04-04 19:23 | RADIOLOGY REPORT (SQ) ---
EXAM DESCRIPTION: CT HEAD WITHOUT IMAGES COMPLETED DATE/TIME: 04/04/2020 7:10 pm REASON FOR STUDY: dizziness; mulitiple falls COMPARISON: 11/30/2017 TECHNIQUE: Axial images acquired through the brain without intravenous contrast. Images reviewed wi th bone, brain and subdural windows. Additional sagittal and coronal reconstructions were generated. Images stored on PACS. All CT scanners at this facility use dose modulation, iterative reconstruction, and/or weight based d osing when appropriate to reduce radiation dose to as low as reasonably achievable (ALARA). [facility]: Dose Right [facility]: CareDose [facility]: Dose Right [facility]: Teradose 4D [facility]: [employer] RADIATION DOSE: CT Rad equipment meets quality standard of care and radiation dose reduction techniq ues were employed. CTDIvol: 53.2 mGy. DLP: 911 mGy-cm. mGy. LIMITATIONS: None. FINDINGS: VENTRICLES: Normal size and contour. CEREBRUM: No masses. No hemorrhage. No midline shift. No evidence for acute infarction. Normal gra y/white matter differentiation. No areas of low density in the white matter. CEREBELLUM: No masses. No hemorrhage. No alteration of density. No evidence for acute infarction. EXTRAAXIAL SPACES: No fluid collections. No masses. ORBITS AND GLOBE: No intra- or extraconal masses. Normal contour of globe without masses. CALVARIUM: No fracture. PARANASAL SINUSES: No fluid or mucosal thickening. SOFT TISSUES: No mass or hematoma. OTHER: No other significant finding. IMPRESSION: NORMAL BRAIN CT WITHOUT CONTRAST. EVIDENCE OF ACUTE STROKE: NO. COMMENT: Quality ID # [id number]: Final reports with documentation of one or more dose reduction techniques (e.g., Automated exposure control, adjustment of the mA and/or kV according to patient size, use of iterative reconstruction technique) TECHNICAL DOCUMENTATION: JOB ID: [id number] 2010 [employer]- All Rights Reserved Reading location - IP/workstation name: [email or web address]
[2020-04-04 20:21] VITALS: BP 120/43
== END 2020-04-04 20:25 | disposition home or self-care (01) ==
LOC: ER 15:47
DX: N39.0 Urinary tract infection, site not specified (principal); R42 Dizziness and giddiness; R51 Headache; Z91.81 History of falling; M54.9 Dorsalgia, unspecified; G89.29 Other chronic pain; Z88.1 Allergy status to other antibiotic agents; Z88.2 Allergy status to sulfonamides; Z88.0 Allergy status to penicillin; Z88.8 Allergy status to other drugs, medicaments and biological substances; F17.200 Nicotine dependence, unspecified, uncomplicated; J45.909 Unspecified asthma, uncomplicated; E11.9 Type 2 diabetes mellitus without complications
CPT/HCPCS: 93005; 99284; 96361; 96374; 96375; 36415; 85025; 80053; 81001; 80307; 70450; 93010; J1200; J2765; J7120

== ENCOUNTER → 2020-07-10 | Outpatient (CLI) | payer MEDICAID ==
--- NOTE | 2020-07-10 15:56 | RADIOLOGY REPORT (SQ) ---
EXAM DESCRIPTION: CHEST PA/LATERAL IMAGES COMPLETED DATE/TIME: 07/10/2020 3:39 pm REASON FOR STUDY: PRE-OP COMPARISON: 09/09/2019 EXAM PARAMETERS: NUMBER OF VIEWS: two views TECHNIQUE: Digital Frontal and Lateral radiographic views of the chest acquired. RADIATION DOSE: NA LIMITATIONS: none FINDINGS: LUNGS AND PLEURA: No opacities, masses or pneumothorax. No pleural effusion. MEDIASTINUM AND HILAR STRUCTURES: No masses or contour abnormalities. HEART AND VASCULAR STRUCTURES: Heart normal size. No evidence for failure. BONES: Mild scoliosis. HARDWARE: None in the chest. Hardware in the lower cervical spine. OTHER: No other significant finding. IMPRESSION: NO SIGNIFICANT RADIOGRAPHIC FINDING IN THE CHEST. TECHNICAL DOCUMENTATION: JOB ID: [id number] 2010 [employer]- All Rights Reserved Reading location - IP/workstation name: [email or web address]
[2020-07-10 16:26] LABS: ABSOLUTE BASOPHILS # (AUTO) 0.1 10^3/uL (0.0-0.2); ABSOLUTE EOSINOPHILS # (AUTO) 0.2 10^3/uL (0.0-0.6); ABSOLUTE LYMPHOCYTES (AUTO) 2.1 10^3/uL (0.5-4.7); ABSOLUTE MONOCYTES (AUTO) 0.5 10^3/uL (0.1-1.4); ABSOLUTE NEUT (AUTO) 4.3 10^3/uL (1.7-8.2); BASOPHILS % (AUTO) 0.8 % (0-2); EOSINOPHILS % (AUTO) 2.7 % (0-6); HEMATOCRIT 43.6 % (36.0-47.0); HEMOGLOBIN 15.4 g/dL (12.0-15.5); LYMPHOCYTES % (AUTO) 29.7 % (13-45); MEAN CORPUSCULAR HEMOGLOBIN 29.7 pg (27.0-33.4); MEAN CORPUSCULAR HGB CONC 35.4 g/dL (32.0-36.0); MEAN CORPUSCULAR VOLUME 84 fl (80-97); MONOCYTES % (AUTO) 6.9 % (3-13); PLATELET COUNT 197 10^3/uL (150-450); RED CELL DISTRIBUTION WIDTH 12.7 % (11.5-14.0); SEGMENTED NEUTROPHILS % (AUTO) 59.9 % (42-78); TOTAL CELLS COUNTED % (AUTO) 100 %; WHITE BLOOD COUNT 7.2 10^3/uL (4.0-10.5)
[2020-07-10 16:50] LABS: ANION GAP 8 (5-19); BLOOD UREA NITROGEN 14 mg/dL (7-20); CALCIUM 9.5 mg/dL (8.4-10.2); CARBON DIOXIDE 23 mmol/L (22-30); CHLORIDE 106 mmol/L (98-107); GLUCOSE 95 mg/dL (75-110); POTASSIUM 4.3 mmol/L (3.6-5.0)
--- NOTE | 2020-07-11 11:15 | EKG REPORT ---
SEVERITY:- NORMAL ECG - SINUS RHYTHM : Confirmed by: Luzma Randall MD 11-Jul-2020 11:14:57
== END ==
LOC: OD 15:09
PROVIDERS: ATTEND Orthopaedic Surgery
DX: Z01.810 Encounter for preprocedural cardiovascular examination (principal); Z01.811 Encounter for preprocedural respiratory examination; Z01.812 Encounter for preprocedural laboratory examination; G56.22 Lesion of ulnar nerve, left upper limb; G56.03 Carpal tunnel syndrome, bilateral upper limbs; M25.532 Pain in left wrist; M25.531 Pain in right wrist
CPT/HCPCS: 36415; 71046; 80048; 85025; 93005; 93010